=== PATIENT | female | born 1935 | race African-American/Black ===

== ENCOUNTER 2016-08-01 11:09 | Inpatient (IN) ==
--- NOTE | 2016-08-01 11:35 | Emergency Department Note ---
Disposition Clinical Impression: Urinary tract infection, Mental status change, Agitation, Fever, SIRS ( systemic inflammatory response syndrome) Disposition: Admitted As Inpatient Condition: Fair Referrals: Miguel Moya Jr, MD [Primary Care Provider] - Forms: ED Satisfaction Letter Time of Disposition: 13:27 General Adult HPI - General Chief complaint: ED Urogenital-Female Stated complaint: UTI, Fever, lethargic Time Seen by Provider: 08/01/16 11:33 Source: patient, EMS Mode of arrival: EMS Limitations: altered mental status Nursing Notes Reviewed: Yes Vital Signs Reviewed: Yes - History of Present Illness HPI Narrative: This is an 81-year-old female who comes in for altered mental status. There is no one at bedside to give us more history and the patient's a very poor historian. Patient was apparently just diagnosed with a UTI yesterday but has only had one dose of antibiotics. Patient is running a fever here. Patient is oriented to person and place but not to time. Patient denies any other pain except some chronic low back pain. Pt does have a baseline dementia and so this could be baseline but it is unknown. Onset (ago): unknown Pain Scale: 4 - Related Data Home Medications Medication Instructions Recorded Confirmed Aspirin Enteric Coated [Aspirin EC] 81 mg PO DAILY 03/10/16 08/01/16 Atorvastatin [Lipitor] 80 mg PO HS 03/10/16 08/01/16 Clopidogrel [Plavix] 75 mg PO DAILY 03/10/16 08/01/16 Furosemide [Lasix] 20 - 40 mg PO DAILY 03/10/16 08/01/16 Insulin Glargine,Hum.rec.anlog 25 unit SQ BID 03/10/16 08/01/16 [Lantus Solostar] Lansoprazole [Prevacid] 30 mg PO QAM 03/10/16 08/01/16 Paroxetine HCl 10 mg PO DAILY 03/10/16 08/01/16 Potassium Chloride [K-Tab ER] 20 meq PO DAILY 03/10/16 08/01/16 PredniSONE 10 mg PO DAILY 03/10/16 08/01/16 Metoprolol XL (24 HR) Succ [Toprol 25 mg PO DAILY 08/01/16 08/01/16 XL] Nitrofurantoin (BID) [Macrobid] 100 mg PO BID 08/01/16 08/01/16 Ondansetron ODT [Zofran ODT] 4 mg PO Q4H PRN 08/01/16 08/01/16 Quetiapine Fumarate [Quetiapine 25 mg PO DAILY 08/01/16 08/01/16 Fumarate] Allergies Allergy/AdvReac Type Severity Reaction Status Date / Time codeine Allergy See Verified 08/01/16 13:44 Comments Limitations: ROS unobtainable due to patients medical condition (confusion, ams) Past Medical History - Past Medical History Source: patient, old records reviewed Medical history: Reports: arthritis, dementia, diabetes, GERD, hyperlipidemia, hypertension, kidney stones, myocardial infarction Surgical history: Reports: angioplasty/stent, cataract, cholecystectomy, hysterectomy, knee replacement, orthopedic, other Psychiatric history: Reports: depression - Social History Smoking Status: Unknown if ever smoked Smokeless Tobacco Status: No Alcohol use: Reports: unknown Drug use: Reports: none Physical Exam - General Limitations: altered mental status General appearance: alert, in no apparent distress - Head Head exam: atraumatic, normocephalic, normal inspection - Eye Eye exam: Present: normal appearance, PERRL, EOMI - ENT ENT exam: normal exam, normal oropharynx, mucous membranes moist - Expanded ENT Exam External ear exam: Present: normal external inspection Mouth exam: Present: normal external inspection Teeth exam: Present: normal inspection Throat exam: Present: normal inspection - Neck Neck exam: Present: normal inspection, full ROM, trachea midline - Chest Chest inspection: Present: normal inspection, symmetric chest wall rise - Respiratory Respiratory exam: Present: normal lung sounds bilaterally - Cardiovascular Cardiovascular exam: Present: regular rate, normal rhythm, normal heart sounds - Abdominal Exam Abdominal exam: Present: soft, Non-Tender. Absent: tenderness, distention, guarding, rebound, rigidity - Extremities Exam Extremities exam: Present: normal inspection, full ROM, pedal edema. Absent: tenderness - Expanded Upper Extremity Exam Shoulder exam: Present: normal inspection, full ROM Arm exam: Present: normal inspection, full ROM Elbow exam: Present: normal inspection, full ROM Forearm/Wrist exam: Present: normal inspection, full ROM Hand exam: Present: normal inspection, full ROM Vascular exam: Normal: capillary refill, radial pulse - Expanded Lower Extremity Exam Hip/Pelvis exam: Present: normal inspection, full ROM Upper leg exam: Present: normal inspection, full ROM Knee exam: Present: normal inspection, full ROM Lower leg exam: Present: normal inspection, full ROM, swelling (b/l) Ankle exam: Present: normal inspection, full ROM Foot/toe exam: Present: normal inspection, full ROM Neurovascular/Tendon exam: Absent: motor deficit, sensory deficit, tendon deficit - Back Exam Back exam: Present: normal inspection, full ROM. Absent: tenderness - Neurological Exam Neurological exam: Present: alert. Absent: oriented X3 (to person and place only) - Expanded Neurological Exam Patient oriented to: Present: person, place, time Speech: Present: fluid speech Motor strength - LUE: 5/5 Motor strength - RUE: 5/5 Motor strength - LLE: 5/5 Motor strength - RLE: 5/5 Coma Scale Eye Opening: Spontaneous Coma Scale Motor Response: Obeys Commands Coma Scale Verbal Response: Confused Coma Scale Total: 14 - Psychiatric Psychiatric exam: Present: normal affect, normal mood - Skin Skin exam: Present: warm, dry, intact, normal color Course - Consultations Consultation #1: I spoke with Dr. Nelson onrman to admit. Time: 13:52 Vital Signs Temperature 101 F H 08/01/16 11:12 Pulse Rate 103 08/01/16 11:12 Respiratory Rate 18 08/01/16 11:12 Blood Pressure 98/57 08/01/16 11:12 O2 Sat by Pulse Oximetry 91 L 08/01/16 11:12 Temperature 101 F H 08/01/16 11:12 Pulse Rate 97 08/01/16 12:31 Respiratory Rate 36 08/01/16 12:31 Blood Pressure 130/83 08/01/16 12:31 O2 Sat by Pulse Oximetry 98 08/01/16 12:31 Oxygen Delivery Oxygen Delivery Room Air Medical Decision Making - Medical Records Medical records reviewed: Yes I reviewed the patient's medical records. - Lab Data Lab results reviewed: Yes I reviewed the patient's lab results. Result diagrams: 08/01/16 12:23 08/01/16 12:23 Lab Results 08/01/16 08/01/16 08/01/16 Range/Units 12:23 12:23 12:23 WBC 9.6 (4.3-11.1) K/mcL RBC 3.67 L (3.82-4.97) M/mcL Hgb 10.6 L (11.5-15.4) g/dL Hct 33.9 L (35.3-44.9) % MCV 92.4 (83.0-100.0) fL MCH 28.9 (28.0-33.3) pg MCHC 31.3 L (31.6-35.5) g/dL RDW 13.8 (11.5-14.5) % Plt Count 194 (140-400) K/mcL MPV 8.7 L (9.4-12.4) fL Immature Gran % 0.6 (0-4) % Seg Neutrophils % 90.6 % Lymphocytes % 2.5 % Monocytes % 3.6 % Eosinophils % 2.6 % Basophils % 0.1 % Neutrophils # 8.7 (1.6-8.9) K/mcL Lymphocytes # 0.2 L (0.6-4.6) K/mcL Monocytes # 0.4 (0.0-1.3) K/mcL Eosinophils # 0.3 (0.0-0.6) K/mcL Basophils # 0.0 (0.0-0.2) K/mcL PT (9.4-12.1) Seconds INR Sodium 142 (136-145) mEq/L Potassium 3.6 (3.5-4.5) mEq/L Chloride 111 H (98-109) mEq/L Carbon Dioxide 27 (19-29) mEq/L BUN 24 H (7-20) mg/dL Creatinine 0.85 (0.57-1.11) mg/dL Est GFR ( Amer) > 60 (> 60) Est GFR (Non-Af Amer) > 60 (> 60) BUN/Creatinine Ratio 28 H (6-26) Glucose 154 H (70-99) mg/dL Calculated Osmolality 301 H (280-300) Lactic Acid 1.3 (0.5-2.2) mmol/L Calcium 8.1 L (8.6-10.8) mg/dL Total Bilirubin (0.2-1.2) mg/dL Direct Bilirubin (0.0-0.5) mg/dL Indirect Bilirubin (0.0-1.2) mg/dL AST (5-34) Units/L ALT (0-55) Units/L Alkaline Phosphatase (38-126) Units/L Troponin I (0-0.03) ng/mL B-Natriuretic Peptide (0-100) pg/mL Serum Total Protein (6.0-8.3) g/dL Albumin (3.5-5.0) g/dL Globulin (2.4-3.5) g/dL Albumin/Globulin Ratio (1.1-2.2) Lipase (8-78) Units/L TSH (0.350-4.840) mcIU/mL Salicylates (15-30) mg/dL Acetaminophen (10-30) mcg/mL Ethyl Alcohol (0-10) mg/dL 08/01/16 08/01/16 08/01/16 Range/Units 12:23 12:23 12:23 WBC (4.3-11.1) K/mcL RBC (3.82-4.97) M/mcL Hgb (11.5-15.4) g/dL Hct (35.3-44.9) % MCV (83.0-100.0) fL MCH (28.0-33.3) pg MCHC (31.6-35.5) g/dL RDW (11.5-14.5) % Plt Count (140-400) K/mcL MPV (9.4-12.4) fL Immature Gran % (0-4) % Seg Neutrophils % % Lymphocytes % % Monocytes % % Eosinophils % % Basophils % % Neutrophils # (1.6-8.9) K/mcL Lymphocytes # (0.6-4.6) K/mcL Monocytes # (0.0-1.3) K/mcL Eosinophils # (0.0-0.6) K/mcL Basophils # (0.0-0.2) K/mcL PT 12.3 H (9.4-12.1) Seconds INR 1.1 Sodium (136-145) mEq/L Potassium (3.5-4.5) mEq/L Chloride (98-109) mEq/L Carbon Dioxide (19-29) mEq/L BUN (7-20) mg/dL Creatinine (0.57-1.11) mg/dL Est GFR ( Amer) (> 60) Est GFR (Non-Af Amer) (> 60) BUN/Creatinine Ratio (6-26) Glucose (70-99) mg/dL Calculated Osmolality (280-300) Lactic Acid (0.5-2.2) mmol/L Calcium (8.6-10.8) mg/dL Total Bilirubin (0.2-1.2) mg/dL Direct Bilirubin (0.0-0.5) mg/dL Indirect Bilirubin (0.0-1.2) mg/dL AST (5-34) Units/L ALT (0-55) Units/L Alkaline Phosphatase (38-126) Units/L Troponin I 0.02 (0-0.03) ng/mL B-Natriuretic Peptide 134 H (0-100) pg/mL Serum Total Protein (6.0-8.3) g/dL Albumin (3.5-5.0) g/dL Globulin (2.4-3.5) g/dL Albumin/Globulin Ratio (1.1-2.2) Lipase (8-78) Units/L TSH (0.350-4.840) mcIU/mL Salicylates (15-30) mg/dL Acetaminophen (10-30) mcg/mL Ethyl Alcohol (0-10) mg/dL 08/01/16 Range/Units 12:23 WBC (4.3-11.1) K/mcL RBC (3.82-4.97) M/mcL Hgb (11.5-15.4) g/dL Hct (35.3-44.9) % MCV (83.0-100.0) fL MCH (28.0-33.3) pg MCHC (31.6-35.5) g/dL RDW (11.5-14.5) % Plt Count (140-400) K/mcL MPV (9.4-12.4) fL Immature Gran % (0-4) % Seg Neutrophils % % Lymphocytes % % Monocytes % % Eosinophils % % Basophils % % Neutrophils # (1.6-8.9) K/mcL Lymphocytes # (0.6-4.6) K/mcL Monocytes # (0.0-1.3) K/mcL Eosinophils # (0.0-0.6) K/mcL Basophils # (0.0-0.2) K/mcL PT (9.4-12.1) Seconds INR Sodium (136-145) mEq/L Potassium (3.5-4.5) mEq/L Chloride (98-109) mEq/L Carbon Dioxide (19-29) mEq/L BUN (7-20) mg/dL Creatinine (0.57-1.11) mg/dL Est GFR ( Amer) (> 60) Est GFR (Non-Af Amer) (> 60) BUN/Creatinine Ratio (6-26) Glucose (70-99) mg/dL Calculated Osmolality (280-300) Lactic Acid (0.5-2.2) mmol/L Calcium (8.6-10.8) mg/dL Total Bilirubin 0.6 (0.2-1.2) mg/dL Direct Bilirubin 0.3 (0.0-0.5) mg/dL Indirect Bilirubin 0.3 (0.0-1.2) mg/dL AST 20 (5-34) Units/L ALT 11 (0-55) Units/L Alkaline Phosphatase 82 (38-126) Units/L Troponin I (0-0.03) ng/mL B-Natriuretic Peptide (0-100) pg/mL Serum Total Protein 5.6 L (6.0-8.3) g/dL Albumin 2.7 L (3.5-5.0) g/dL Globulin 2.9 (2.4-3.5) g/dL Albumin/Globulin Ratio 0.9 L (1.1-2.2) Lipase 14 (8-78) Units/L TSH 0.706 (0.350-4.840) mcIU/mL Salicylates < 5.0 L (15-30) mg/dL Acetaminophen 6.0 L (10-30) mcg/mL Ethyl Alcohol < 10 (0-10) mg/dL - Radiology Data Radiology results reviewed: Yes I reviewed the patient's radiology results. - EKG Data EKG #1 EKG attestation: Yes I reviewed and interpreted this EKG. EKG shows normal: sinus rhythm Rate: tachycardia (105) Rhythm: NSR [place]/QRS: normal T wave inversions noted in: v4, v5, v6 Interpretation: nonspecific ST-T wave changes
[2016-08-01] MEDS: 0.9 % Sodium Chloride 1,000 ML IV SCH (11:42)
[2016-08-01 12:32] LABS: Basophils % 0.1 %; Eosinophils # 0.3 K/mcL (0.0-0.6); Eosinophils % 2.6 %; Hematocrit 33.9 % (35.3-44.9); Hemoglobin 10.6 g/dL (11.5-15.4); Immature Granulocytes % 0.6 % (0-4); Lymphocytes # 0.2 K/mcL (0.6-4.6); Lymphocytes % 2.5 %; Mean Corpuscular HGB Conc 31.3 g/dL (31.6-35.5); Mean Corpuscular Hemoglobin 28.9 pg (28.0-33.3); Mean Corpuscular Volume 92.4 fL (83.0-100.0); Mean Platelet Volume 8.7 fL (9.4-12.4); Monocytes # 0.4 K/mcL (0.0-1.3); Monocytes % 3.6 %; Neutrophils # 8.7 K/mcL (1.6-8.9); Platelet Count 194 K/mcL (140-400); Red Blood Count 3.67 M/mcL (3.82-4.97); Red Cell Distribution Width 13.8 % (11.5-14.5); Segmented Neutrophils % 90.6 %
[2016-08-01 12:36] LABS: INR 1.1; Prothrombin Time 12.3 Seconds (9.4-12.1)
[2016-08-01 12:50] LABS: BUN/Creatinine Ratio 28 (6-26); Blood Urea Nitrogen 24 mg/dL (7-20); Calcium 8.1 mg/dL (8.6-10.8); Carbon Dioxide 27 mEq/L (19-29); Chloride 111 mEq/L (98-109); Glucose 154 mg/dL (70-99); Osmolality,Calculated 301 (280-300); Potassium 3.6 mEq/L (3.5-4.5); Sodium 142 mEq/L (136-145); eGFR For African Americans > 60 (> 60); eGFR For Non-African Americans > 60 (> 60)
[2016-08-01 12:51] LABS: Alanine Aminotransferase 11 Units/L (0-55); Albumin 2.7 g/dL (3.5-5.0); Albumin/Globulin Ratio 0.9 (1.1-2.2); Alkaline Phosphatase 82 Units/L (38-126); Aspartate Amino Transferase 20 Units/L (5-34); Bilirubin,Direct 0.3 mg/dL (0.0-0.5); Bilirubin,Indirect 0.3 mg/dL (0.0-1.2); Bilirubin,Total 0.6 mg/dL (0.2-1.2); Globulin 2.9 g/dL (2.4-3.5); Lipase 14 Units/L (8-78); Total Protein 5.6 g/dL (6.0-8.3)
[2016-08-01 12:52] LABS: Ethanol < 10 mg/dL (0-10); Salicylate < 5.0 mg/dL (15-30)
[2016-08-01 13:14] LABS: Thyroid Stimulating Hormone 0.706 mcIU/mL (0.350-4.840)
[2016-08-01] MEDS ORDERED: *HR* LORazepam 2 MG/ML VIAL IVP ONE (13:26)
[2016-08-01] MEDS ORDERED: 0.9 % Sodium Chloride 1,000 ML IV SCH (14:00)
[2016-08-01] MEDS ORDERED: Ondansetron 4 MG/2 ML VIAL IVP PRN (17:07)
[2016-08-01] MEDS ORDERED: Naloxone 0.4 MG/ML INJ IVP PRN (17:07)
[2016-08-01] MEDS ORDERED: Dextrose Gel 15 GM PO PRN ×2 (17:13)
[2016-08-01] MEDS ORDERED: D5% in Water 1,000 ML IV PRN (17:13)
--- NOTE | 2016-08-01 17:14 | Internal Med History&Physical ---
Date of Encounter: 08/01/16 Time of Encounter: 17:14 Assessment and Plan (1) Sepsis Current visit: Yes Status: Acute Patient presented with fever, tachycardia, encephalopathy with possible UTI. Start IV hydration and continue IV Rocephin. Urinalysis is currently not available. Send urine dipstick with reflex urine culture as soon as possible. Supportive care with when necessary antiemetics. Fall precautions. Qualifiers: Sepsis type: sepsis due to unspecified organism Qualified Code(s): A41.9 - Sepsis, unspecified organism (2) UTI (urinary tract infection) Current visit: Yes Status: Acute Qualifiers: Urinary tract infection type: site unspecified Hematuria presence: without hematuria Qualified Code(s): N39.0 - Urinary tract infection, site not specified (3) Essential hypertension Current visit: Yes Status: Chronic Blood pressure noted to be controlled; resume home meds; (4) Diabetes mellitus Current visit: Yes Status: Chronic Accucheck blood glucose monitoring with basal bolus insulin regimen; diabetic diet; Qualifiers: Diabetes mellitus type: type 2 Diabetes mellitus complication status: with unspecified complications Diabetes mellitus chcf insulin use: with chcf use Qualified Code(s): E11.8 - Type 2 diabetes mellitus with unspecified complications; Z79.4 - joint terminal attack controller (current) use of insulin (5) Hyperlipidemia Current visit: Yes Status: Chronic Qualifiers: Hyperlipidemia type: unspecified Qualified Code(s): E78.5 - Hyperlipidemia , unspecified (6) Osteoarthritis Current visit: Yes Status: Chronic Qualifiers: Osteoarthritis location: unspecified site Osteoarthritis type: primary Qualified Code(s): M19.91 - Primary osteoarthritis, unspecified site (7) GERD (gastroesophageal reflux disease) Current visit: Yes Status: Chronic Qualifiers: Esophagitis presence: esophagitis presence not specified Qualified Code(s) : K21.9 - Gastro-esophageal reflux disease without esophagitis (8) Coronary artery disease Current visit: Yes Status: Chronic s/p stent placement; continue ASA, Plavix, statin and beta-bry; Qualifiers: Coronary Disease-Associated Artery/Lesion type: [place] artery [place] vs. transplanted heart: [place]quois heart Associated angina: without angina Qualified Code(s): I25.10 - Atherosclerotic heart disease of [place] coronary artery without angina pectoris (9) Depression Current visit: Yes Status: Chronic Qualifiers: Depression Type: unspecified Qualified Code(s): F32.9 - Major depressive disorder, single episode, unspecified (10) Aortic regurgitation Current visit: Yes Status: Chronic Qualifiers: Cardiac valve disease etiology: nonrheumatic Qualified Code(s): I35.1 - Nonrheumatic aortic (valve) insufficiency Internal Medicine - H&P: HPI Chief complaint: Altered mental status Admitted From: Emergency Dept Plans for Post Hospital Care: Transfer [facility] Facility History of present illness: Ms. Cole is a 81 year old female with history of dementia, hypertension, diabetes was brought in by family for evaluation of lethargy and weakness. Patient is currently drowsy and is unable to provide any history, which is obtained from review of previous records, patient's daughter at bedside and from discussion with emergency room physician. Patient was noted to have progressive excessive sleepiness, generalized weakness and fatigue for the last few days and was taken to her primary care provider's office yesterday, where she was diagnosed with a urinary tract infection and was sent home on oral antibiotic. does not remember the name. She continued to have her symptoms associated with fever, nausea and dry heaves and an episode of vomiting this morning and she was brought into the emergency room for evaluation. She does not particularly report abdominal or flank pain, chest pain, shortness of breath, diarrhea. Patient does have a history of recurrent urinary infections, probably related to her history of renal stones. Past Med Surg Social Fam HX - Past Medical History Medical history: arthritis, coronary artery disease, dementia, diabetes, GERD, hyperlipidemia, hypertension, kidney stones, myocardial infarction Psychiatric history: depression - Past Surgical History Surgical History: angioplasty/stent, cataract, cholecystectomy, hysterectomy, knee replacement (Bilateral total knee replacement), orthopedic, other (Right shoulder replacement), other (Surgery for ectopic , bilateral nephrostomy tubes and removal) - Social History Smoking Status: Never smoker Smokeless Tobacco Status: No Alcohol use: unknown Drug use: none Occupational status: retired Current living situation: Home, With Family Activity Level: Uses cane/walker Recent Out of Country Travel Within the Last 8 Weeks: No Exposure or Possible Exposure to Illness During Travel: No - Additional Family History Additional family history: Family history cannot be obtained due to patient's current mental status Internal Medicine - H&P: Meds Aspirin Enteric Coated [Aspirin EC] 81 mg PO DAILY 03/10/16 [History] Atorvastatin [Lipitor] 80 mg PO HS 03/10/16 [History] Clopidogrel [Plavix] 75 mg PO DAILY 03/10/16 [History] Furosemide [Lasix] 20 - 40 mg PO DAILY 03/10/16 [History] Insulin Glargine,Hum.rec.anlog [Lantus Solostar] 25 unit SQ BID 03/10/16 [ History] Lansoprazole [Prevacid] 30 mg PO QAM 03/10/16 [History] Paroxetine HCl 10 mg PO DAILY 03/10/16 [History] Potassium Chloride [K-Tab ER] 20 meq PO DAILY 03/10/16 [History] PredniSONE 10 mg PO DAILY 03/10/16 [History] Metoprolol XL (24 HR) Succ [Toprol XL] 25 mg PO DAILY 08/01/16 [History] Nitrofurantoin (BID) [Macrobid] 100 mg PO BID 08/01/16 [History] Ondansetron ODT [Zofran ODT] 4 mg PO Q4H PRN 08/01/16 [History] Quetiapine Fumarate [Quetiapine Fumarate] 25 mg PO DAILY 08/01/16 [History] Allergies codeine Allergy (Verified 08/01/16 13:44) See Comments hasn't taken since a child All Systems PM: A 10-system review of systems was performed and is negative for pertinent findings except as documented above in the HPI. - Constitutional Constitutional: anorexia, chills, fever(s), lethargy, malaise, weakness - EENT Eyes: no change in vision, no discharge, no pain, no photophobia Ears: no ear discharge, no ear pain, no tinnitus Nose, mouth and throat: no dysphagia, no nasal discharge, no neck pain, no sore throat - Cardiovascular Cardiovascular ROS IM: no chest pain, no diaphoresis, no dyspnea, no lightheadedness, no palpitations, no syncope - Respiratory Respiratory: no cough, no dyspnea, no wheezing, no excessive phlegm production - Gastrointestinal Gastrointestinal: nausea, vomiting - Genitourinary Genitourinary: no change in urinary stream, no dysuria, no flank pain, no hematuria - Musculoskeletal Musculoskeletal ROS IM: no numbness, no tingling - Integumentary Integumentary IM: no rash, no unusual bruising - Neurological Neurological ROS: behavioral changes, no confusion, no convulsions, no focal weakness, no numbness, no tingling, no tremor(s) - Hematologic/Lymphatic Hematologic/Lymphatic: no easy bruising - Constitutional Vitals: Temp Pulse Resp BP Pulse Ox 102.0 F H 105 16 127/61 95 08/01/16 16:18 08/01/16 16:18 08/01/16 16:18 08/01/16 16:18 08/01/16 16:18 General appearance: Present: A&O X 1 (Drowsy, not arousable to tactile and verbal stimuli) - Head Head exam: Present: atraumatic, normocephalic - Neck Neck exam general surgery: Present: supple, trachea midline. Absent: lymphadenopathy - Respiratory Respiratory exam: Present: CTAB. Absent: accessory muscle use, rales, rhonchi, wheezes - Cardiovascular Cardiovascular exam: Present: RRR, +S1, +S2, tachycardia. Absent: diastolic murmur, gallop, rubs, systolic murmur - GI/Abdominal GI/Abdominal exam: Present: normal bowel sounds, soft (Nontender), no peritoneal signs. Absent: distended, tenderness - Extremities Exam Extremities exam: Present: pedal edema (2+ pedal edema, right more than left), warm, radial pulses palpable and symetrical. Absent: calf tenderness, cyanotic - Neurological Exam Neurological exam: Present: altered, no focal deficits. Absent: pronater drift , facial droop, speech deficit - Skin Skin exam: Present: dry, intact Internal Med - H&P Results - Labs CBC & Chem 7: 08/02/16 04:39 08/02/16 04:39 - EKG Data -: EKG Interpreted by Myself EKG shows normal: sinus rhythm Rate: tachycardia - EKG Data EKG comments: 08/02/16 08:32 Sinus tachycardia, nonspecific ST-T abnormalities in lateral leads
[2016-08-01 17:45] LABS: Hemoglobin A1C 6.8 %
[2016-08-01] MEDS: 0.9 % Sodium Chloride 1,000 ML IVC SCH (17:49)
[2016-08-01] MEDS: Acetaminophen 325 MG TABLET PO PRN (17:49)
[2016-08-01] MEDS: Furosemide 20 MG TABLET PO SCH (17:49)
[2016-08-01] MEDS: Insulin LISPRO 300 UNITS/3 ML VIAL SQ SCH ×2 (17:50→20:28)
[2016-08-01] MEDS ORDERED: Haloperidol Lactate 5 MG/ML VIAL IVP PRN (20:38)
[2016-08-01] MEDS ORDERED: *HR* LORazepam 2 MG/ML VIAL IVP STA (20:38)
[2016-08-01] MEDS ORDERED: Haloperidol Lactate 5 MG/ML VIAL IVP STA (20:38)
[2016-08-01] MEDS ORDERED: *HR* Promethazine 25 MG/ML VIAL IVP PRN (20:40)
[2016-08-01] MEDS: Insulin DETEMIR 100 UNIT/ML X5UNITS SQ SCH (20:43)
[2016-08-02] MEDS ORDERED: Ketorolac 15 MG/ML VIAL IM STA
[2016-08-02] MEDS ORDERED: *HR* LORazepam 2 MG/ML VIAL IVP STA (01:17)
[2016-08-02] MEDS ORDERED: *HR* FentaNYL (PF) 100 MCG/2 ML VIAL IVP STA (01:20)
[2016-08-02 05:26] LABS: Basophils % 0.2 %; Eosinophils # 0.2 K/mcL (0.0-0.6); Eosinophils % 2.8 %; Hematocrit 31.1 % (35.3-44.9); Hemoglobin 9.8 g/dL (11.5-15.4); Immature Granulocytes % 0.6 % (0-4); Lymphocytes # 0.4 K/mcL (0.6-4.6); Lymphocytes % 5.1 %; Mean Corpuscular HGB Conc 31.5 g/dL (31.6-35.5); Mean Corpuscular Hemoglobin 29.2 pg (28.0-33.3); Mean Corpuscular Volume 92.6 fL (83.0-100.0); Mean Platelet Volume 8.8 fL (9.4-12.4); Monocytes # 0.5 K/mcL (0.0-1.3); Monocytes % 6.6 %; Neutrophils # 6.9 K/mcL (1.6-8.9); Platelet Count 177 K/mcL (140-400); Red Blood Count 3.36 M/mcL (3.82-4.97); Red Cell Distribution Width 14.1 % (11.5-14.5); Segmented Neutrophils % 84.7 %
[2016-08-02] MEDS: *HR* Enoxaparin 40 MG/0.4 ML SYRINGE SQ SCH (05:26)
[2016-08-02 05:40] LABS: BUN/Creatinine Ratio 23 (6-26); Blood Urea Nitrogen 23 mg/dL (7-20); Calcium 7.8 mg/dL (8.6-10.8); Carbon Dioxide 26 mEq/L (19-29); Chloride 113 mEq/L (98-109); Glucose 85 mg/dL (70-99); Osmolality,Calculated 299 (280-300); Potassium 4.2 mEq/L (3.5-4.5); Sodium 143 mEq/L (136-145); eGFR For African Americans > 60 (> 60); eGFR For Non-African Americans 52 (> 60)
[2016-08-02] MEDS: Insulin LISPRO 300 UNITS/3 ML VIAL SQ SCH ×4 (07:45→19:24)
[2016-08-02] MEDS: Vitamin B Complex/Vit C/Vit E 1 EACH TABLET PO SCH (07:57)
[2016-08-02] MEDS: Thiamine (B-1) 100 MG TABLET PO SCH (07:57)
[2016-08-02] MEDS: Furosemide 20 MG TABLET PO SCH (07:57)
[2016-08-02] MEDS: Folic Acid 1 MG TABLET PO SCH (07:58)
[2016-08-02] MEDS: Aspirin Enteric Coated 81 MG Tablet PO SCH (07:58)
[2016-08-02] MEDS: Metoprolol XL (24 HR) Succ 25 MG TAB.ER.24H PO SCH (07:58)
[2016-08-02] MEDS: 0.9 % Sodium Chloride 1,000 ML IVC SCH (07:59)
[2016-08-02] MEDS: Insulin DETEMIR 100 UNIT/ML X5UNITS SQ SCH ×2 (09:24→19:25)
[2016-08-02] MEDS: Acetaminophen 325 MG TABLET PO PRN (09:29)
--- NOTE | 2016-08-02 11:52 | Internal Med Progress Note ---
Date of Encounter: 08/02/16 Time of Encounter: 07:35 - Assessment and plan (1) Sepsis Current Visit: Yes Status: Acute Assessment and plan: Continue IV Rocephin. We will follow urinalysis and culture results. Qualifiers: Sepsis type: sepsis due to unspecified organism Qualified Code(s): A41.9 - Sepsis, unspecified organism (2) UTI (urinary tract infection) Current Visit: Yes Status: Acute Assessment and plan: Treating for presumptive UTI. We will follow culture results. Continue IV antibiotics. Qualifiers: Urinary tract infection type: site unspecified Hematuria presence: without hematuria Qualified Code(s): N39.0 - Urinary tract infection, site not specified (3) Coronary artery disease Current Visit: Yes Status: Chronic Assessment and plan: Continue aspirin, statin. Qualifiers: Coronary Disease-Associated Artery/Lesion type: [place] artery [place] vs. transplanted heart: [place] heart Associated angina: without angina Qualified Code(s): I25.10 - Atherosclerotic heart disease of [place] coronary artery without angina pectoris (4) Depression Current Visit: Yes Status: Chronic Qualifiers: Depression Type: unspecified Qualified Code(s): F32.9 - Major depressive disorder, single episode, unspecified (5) Diabetes mellitus Current Visit: Yes Status: Chronic Assessment and plan: Controlled. Monitor blood sugars. Qualifiers: Diabetes mellitus type: type 2 Diabetes mellitus complication status: with unspecified complications Diabetes mellitus skilled nursing insulin use: with intermediate manager use Qualified Code(s): E11.8 - Type 2 diabetes mellitus with unspecified complications; Z79.4 - skilled nursing (current) use of insulin (6) Essential hypertension Current Visit: Yes Status: Chronic Assessment and plan: Well-controlled. (7) Hyperlipidemia Current Visit: Yes Status: Chronic Assessment and plan: Continue statin Qualifiers: Hyperlipidemia type: unspecified Qualified Code(s): E78.5 - Hyperlipidemia , unspecified (8) Osteoarthritis Current Visit: Yes Status: Chronic Assessment and plan: Chronic. Supportive care. Qualifiers: Osteoarthritis location: unspecified site Osteoarthritis type: primary Qualified Code(s): M19.91 - Primary osteoarthritis, unspecified site (9) Dementia Current Visit: Yes Status: Chronic Assessment and plan: Patient has chronic dementia with intermittent delirium. Will monitor for now. She has not had good response to low-dose Seroquel. Will increase dosage. Qualifiers: Dementia type: unspecified type Dementia behavioral disturbance: with behavioral disturbance Qualified Code(s): F03.91 - Unspecified dementia with behavioral disturbance - Subjective Interval history: Patient is lying in bed and trying to sleep. Patient's daughter is at bedside and says that the patient has been intermittently agitated. Otherwise no other complaints reported. She is having fever with MAXIMUM TEMPERATURE of 100.6 overnight. - Constitutional Vitals: Temp Pulse Resp BP Pulse Ox 100.1 F H 107 20 87/56 100 08/02/16 10:17 08/02/16 10:17 08/02/16 10:17 08/02/16 10:08/02/16 10:17 General appearance: Present: A&O X 1 (Drowsy, not arousable to tactile and verbal stimuli), mild distress. Absent: answers questions appropriately Exam: Somnolent. Awakes but does not answer questions - Neck Neck exam general surgery: Present: supple, trachea midline. Absent: lymphadenopathy - Respiratory Respiratory exam: Present: CTAB. Absent: accessory muscle use, rales, rhonchi, wheezes - Cardiovascular Cardiovascular exam: Present: RRR, +S1, +S2. Absent: diastolic murmur, gallop, rubs, systolic murmur - GI/Abdominal GI/Abdominal exam: Present: normal bowel sounds, soft, no peritoneal signs. Absent: distended, tenderness - Neurological Exam Neurological exam: Present: altered. Absent: oriented X3, facial droop Additional comments: Somnolent. Awakes easily but does not answer questions. - Skin Skin exam: Present: dry, intact Internal Medicine: Result - Labs CBC & Chem 7: 08/02/16 04:39 08/02/16 04:39 Labs: Short CBC 08/02/16 Range/Units 04:39 WBC 8.2 (4.3-11.1) K/mcL Hgb 9.8 L (11.5-15.4) g/dL Hct 31.1 L (35.3-44.9) % Plt Count 177 (140-400) K/mcL Neutrophils # 6.9 (1.6-8.9) K/mcL BMP 08/02/16 04:39 Sodium 143 Potassium 4.2 Chloride 113 H Carbon Dioxide 26 BUN 23 H Creatinine 1.02 Glucose 85 Calcium 7.8 L - ABG Interpretation ABG results: PT/INR, D-dimer PT 12.3 Seconds (9.4-12.1) H 08/01/16 12:23 Consult Discharge Plan - Plan Referrals: Miguel Moya Jr, MD [Primary Care Provider] - - Attending Attestation This document has been at least partially created by [employer] recognition technology by Dr. Can. Errors in grammar, wording or other phrases may exist. If errors are found after the documentation is signed, they will be addressed individually in the addendum section of this document when appropriate. Medical Decision Making - MDM Narrative Medical decision making narrative: Moderate risk for complications - Lab Data Result diagrams: 08/02/16 04:39 08/02/16 04:39 Lab Results 08/01/16 08/02/16 08/02/16 Range/Units 20:05 04:39 04:39 WBC 8.2 (4.3-11.1) K/mcL RBC 3.36 L (3.82-4.97) M/mcL Hgb 9.8 L (11.5-15.4) g/dL Hct 31.1 L (35.3-44.9) % MCV 92.6 (83.0-100.0) fL MCH 29.2 (28.0-33.3) pg MCHC 31.5 L (31.6-35.5) g/dL RDW 14.1 (11.5-14.5) % Plt Count 177 (140-400) K/mcL MPV 8.8 L (9.4-12.4) fL Immature Gran % 0.6 (0-4) % Seg Neutrophils % 84.7 % Lymphocytes % 5.1 % Monocytes % 6.6 % Eosinophils % 2.8 % Basophils % 0.2 % Neutrophils # 6.9 (1.6-8.9) K/mcL Lymphocytes # 0.4 L (0.6-4.6) K/mcL Monocytes # 0.5 (0.0-1.3) K/mcL Eosinophils # 0.2 (0.0-0.6) K/mcL Basophils # 0.0 (0.0-0.2) K/mcL Sodium 143 (136-145) mEq/L Potassium 4.2 (3.5-4.5) mEq/L Chloride 113 H (98-109) mEq/L Carbon Dioxide 26 (19-29) mEq/L BUN 23 H (7-20) mg/dL Creatinine 1.02 (0.57-1.11) mg/dL Est GFR ( Amer) > 60 (> 60) Est GFR (Non-Af Amer) 52 L (> 60) BUN/Creatinine Ratio 23 (6-26) Glucose 85 (70-99) mg/dL POC Glucose 77 (58-89) Calculated Osmolality 299 (280-300) Calcium 7.8 L (8.6-10.8) mg/dL 08/02/16 Range/Units 07:05 WBC (4.3-11.1) K/mcL RBC (3.82-4.97) M/mcL Hgb (11.5-15.4) g/dL Hct (35.3-44.9) % MCV (83.0-100.0) fL MCH (28.0-33.3) pg MCHC (31.6-35.5) g/dL RDW (11.5-14.5) % Plt Count (140-400) K/mcL MPV (9.4-12.4) fL Immature Gran % (0-4) % Seg Neutrophils % % Lymphocytes % % Monocytes % % Eosinophils % % Basophils % % Neutrophils # (1.6-8.9) K/mcL Lymphocytes # (0.6-4.6) K/mcL Monocytes # (0.0-1.3) K/mcL Eosinophils # (0.0-0.6) K/mcL Basophils # (0.0-0.2) K/mcL Sodium (136-145) mEq/L Potassium (3.5-4.5) mEq/L Chloride (98-109) mEq/L Carbon Dioxide (19-29) mEq/L BUN (7-20) mg/dL Creatinine (0.57-1.11) mg/dL Est GFR ( Amer) (> 60) Est GFR (Non-Af Amer) (> 60) BUN/Creatinine Ratio (6-26) Glucose (70-99) mg/dL POC Glucose 88 (58-89) Calculated Osmolality (280-300) Calcium (8.6-10.8) mg/dL
--- NOTE | 2016-08-02 12:00 | Venous Imaging Report ---
LE Venous Duplex Patient Name:Esther Cole Order Number:[id number] Procedure Date:08/01/2016 Date:4Age:81 yrs Gender:Female Location:[facility] Room #: 3A21 Cnc Lathe Programmer:Julia Hannah Referring MD:Ree Damon MD mud jack nozzle worker:Miguel Moya MD Reading MD:Armen Mcdaniel MD Primary Indications:Right leg swelling Secondary Indications: Impressions: Right lower extremity: normal superficial and deep exam. Findings Venous Duplex Results: Right: The right peroneal vein was not well visualized. Prior Study: No prior study available for comparison. Lower Extremity Venous Duplex Side Vein Compress Spontaneous Flow Augment Diameter (cm) Depth (cm) Right Superficial Femoral Normal Yes Phasic Yes Right Popliteal Normal Yes Phasic Yes Right Posterior Tibial Normal Yes Phasic Yes Right Peroneal Normal Yes Phasic Yes Right Saphenofemoral [place] Normal Yes Phasic Yes Right Great Saphenous Normal Yes Phasic Yes Right Lesser Saphenous Normal Yes Phasic Yes Left Common Femoral Normal Yes Phasic Yes Right Distal Iliac Normal Yes Phasic Yes Right Common Femoral Normal Yes Phasic Yes Updated by Armen Mcdaniel MD on 08/02/2016 11:55:29 AM electronically signed on 08/02/2016 11:56:15 AM with status of Final
[2016-08-02] MEDS: 0.9 % Sodium Chloride 1,000 ML IV SCH (12:24)
[2016-08-02] MEDS: *HR* Dextrose 50 % in Water (Syg) 50 ML SYRINGE IVP PRN ×4 (12:29→23:55)
[2016-08-02] MEDS ORDERED: Haloperidol Lactate 5 MG/ML VIAL ONE (13:31)
[2016-08-02] MEDS ORDERED: Haloperidol Lactate 5 MG/ML VIAL IM ONE (13:32)
[2016-08-02] MEDS ORDERED: D5% in 0.45% NACL 1,000 ML IVC ONE (17:29)
[2016-08-02] MEDS ORDERED: D5% in 0.45% NACL 1,000 ML IVC SCH (17:30)
[2016-08-02] MEDS: Ipratropium/Albuterol Neb 3 ML IH PRN (20:33)
[2016-08-02] MEDS: Melatonin 3 MG TABLET PO SCH (20:58)
[2016-08-02] MEDS ORDERED: diazePAM 5 MG TABLET PO SCH (21:00)
[2016-08-03] MEDS: D10% in Water 500 ML IVC SCH ×2 (02:26→09:17)
[2016-08-03] MEDS: Ipratropium/Albuterol Neb 3 ML IH PRN ×2 (04:17→09:23)
[2016-08-03] MEDS: *HR* Enoxaparin 40 MG/0.4 ML SYRINGE SQ SCH (05:51)
[2016-08-03] MEDS: Folic Acid 1 MG TABLET PO SCH (09:03)
[2016-08-03] MEDS: Furosemide 20 MG TABLET PO SCH (09:03)
[2016-08-03] MEDS: Metoprolol XL (24 HR) Succ 25 MG TAB.ER.24H PO SCH (09:04)
[2016-08-03] MEDS: Thiamine (B-1) 100 MG TABLET PO SCH (09:04)
[2016-08-03] MEDS: Aspirin Enteric Coated 81 MG Tablet PO SCH (09:04)
[2016-08-03] MEDS: Vitamin B Complex/Vit C/Vit E 1 EACH TABLET PO SCH (09:04)
[2016-08-03] MEDS: Insulin LISPRO 300 UNITS/3 ML VIAL SQ SCH (09:41)
[2016-08-03] MEDS ORDERED: Acetaminophen 650 MG RECTAL SUPP RC PRN (11:19)
[2016-08-03] MEDS: Ipratropium/Albuterol Neb 3 ML IH SCH ×4 (14:37→23:38)
--- NOTE | 2016-08-03 15:13 | Internal Med Progress Note ---
Date of Encounter: 08/03/16 Time of Encounter: 13:00 - Assessment and plan (1) Sepsis Current Visit: Yes Status: Acute Assessment and plan: Improving. Blood cultures have been negative. Continue Rocephin. Qualifiers: Sepsis type: sepsis due to unspecified organism Qualified Code(s): A41.9 - Sepsis, unspecified organism (2) UTI (urinary tract infection) Current Visit: Yes Status: Acute Assessment and plan: On IV Rocephin. So far unable to get urine sample here. Qualifiers: Urinary tract infection type: site unspecified Hematuria presence: without hematuria Qualified Code(s): N39.0 - Urinary tract infection, site not specified (3) Coronary artery disease Current Visit: Yes Status: Chronic Assessment and plan: chronic. Continue aspirin, statin, beta bry. Qualifiers: Coronary Disease-Associated Artery/Lesion type: [place] artery [place] vs. transplanted heart: [place] heart Associated angina: without angina Qualified Code(s): I25.10 - Atherosclerotic heart disease of [place] coronary artery without angina pectoris (4) Depression Current Visit: Yes Status: Chronic Assessment and plan: On Paxil. Qualifiers: Depression Type: unspecified Qualified Code(s): F32.9 - Major depressive disorder, single episode, unspecified (5) Diabetes mellitus Current Visit: Yes Status: Chronic Assessment and plan: Patient has been having hypoglycemic episodes since yesterday. Insulin products have been held now. Blood sugars have since improved. Continue to monitor blood sugars closely. Qualifiers: Diabetes mellitus type: type 2 Diabetes mellitus complication status: with unspecified complications Diabetes mellitus medical terminologist insulin use: with usp use Qualified Code(s): E11.8 - Type 2 diabetes mellitus with unspecified complications; Z79.4 - correction (current) use of insulin (6) Essential hypertension Current Visit: Yes Status: Chronic (7) Hyperlipidemia Current Visit: Yes Status: Chronic Assessment and plan: Well-controlled. Qualifiers: Hyperlipidemia type: unspecified Qualified Code(s): E78.5 - Hyperlipidemia , unspecified (8) Osteoarthritis Current Visit: Yes Status: Chronic Qualifiers: Osteoarthritis location: unspecified site Osteoarthritis type: primary Qualified Code(s): M19.91 - Primary osteoarthritis, unspecified site (9) Dementia Current Visit: Yes Status: Chronic Assessment and plan: Chronic. Follow-up outpatient with neurology. Qualifiers: Dementia type: unspecified type Dementia behavioral disturbance: with behavioral disturbance Qualified Code(s): F03.91 - Unspecified dementia with behavioral disturbance (10) Wheezing without diagnosis of asthma Current Visit: Yes Status: Acute Assessment and plan: Since having wheezing previous diagnosis of asthma. Will treat with nebulizer bronchodilators and steroids. Could have underlying reactive airway disease. Patient does not have a history of long-term smoking. - Subjective Interval history: Patient lying in bed. Shallow respiratory depth. Patient unable to sleep well last night. Disoriented. Has been eating better today. - Constitutional Vitals: Temp Pulse Resp BP Pulse Ox 98.9 F 106 20 109/67 96 08/03/16 12:38 08/03/16 12:38 08/03/16 14:57 08/03/16 12:38 08/03/16 14:57 General appearance: Present: mild distress. Absent: answers questions appropriately Exam: Awake and alert. Disoriented. - Respiratory Respiratory exam: Present: wheezes, tachypnea. Absent: accessory muscle use, rales, rhonchi Additional comments: Decreased inspiratory depth. - Cardiovascular Cardiovascular exam: Present: RRR, +S1, +S2. Absent: diastolic murmur, gallop, rubs, systolic murmur - GI/Abdominal GI/Abdominal exam: Present: normal bowel sounds, soft, no peritoneal signs. Absent: distended, tenderness - Extremities Exam Extremities exam: Present: warm, radial pulses palpable and symetrical. Absent : calf tenderness, cyanotic, pedal edema - Neurological Exam Neurological exam: Present: CN II-XII intact, oriented X3, no focal deficits. Absent: facial droop, speech deficit Internal Medicine: Result - Labs CBC & Chem 7: 08/02/16 04:39 08/02/16 04:39 - ABG Interpretation ABG results: PT/INR, D-dimer PT 12.3 Seconds (9.4-12.1) H 08/01/16 12:23 - Impressions Impressions Chest X-Ray 08/02/16 17:48 IMPRESSION: Low volume study with mild bibasilar airspace disease, atelectasis versus pneumonia. Findings appear similar to prior exam. D/ / Nader Horan MD / Nader Horan MD Interpreting Provider: Nader Horan MD Consult Discharge Plan - Plan Referrals: Miguel Moya Jr, MD [Primary Care Provider] - - Attending Attestation This document has been at least partially created by [employer] recognition technology by Dr. Can. Errors in grammar, wording or other phrases may exist. If errors are found after the documentation is signed, they will be addressed individually in the addendum section of this document when appropriate. Medical Decision Making - MDM Narrative Medical decision making narrative: Moderate risk for complications - Medical Records Medical records reviewed: Yes I reviewed the patient's medical records. - Lab Data Lab results reviewed: Yes I reviewed the patient's lab results. Result diagrams: 08/02/16 04:39 08/02/16 04:39 Lab Results 08/01/16 08/02/16 08/02/16 Range/Units 20:05 04:39 04:39 WBC 8.2 (4.3-11.1) K/mcL RBC 3.36 L (3.82-4.97) M/mcL Hgb 9.8 L (11.5-15.4) g/dL Hct 31.1 L (35.3-44.9) % MCV 92.6 (83.0-100.0) fL MCH 29.2 (28.0-33.3) pg MCHC 31.5 L (31.6-35.5) g/dL RDW 14.1 (11.5-14.5) % Plt Count 177 (140-400) K/mcL MPV 8.8 L (9.4-12.4) fL Immature Gran % 0.6 (0-4) % Seg Neutrophils % 84.7 % Lymphocytes % 5.1 % Monocytes % 6.6 % Eosinophils % 2.8 % Basophils % 0.2 % Neutrophils # 6.9 (1.6-8.9) K/mcL Lymphocytes # 0.4 L (0.6-4.6) K/mcL Monocytes # 0.5 (0.0-1.3) K/mcL Eosinophils # 0.2 (0.0-0.6) K/mcL Basophils # 0.0 (0.0-0.2) K/mcL Sodium 143 (136-145) mEq/L Potassium 4.2 (3.5-4.5) mEq/L Chloride 113 H (98-109) mEq/L Carbon Dioxide 26 (19-29) mEq/L BUN 23 H (7-20) mg/dL Creatinine 1.02 (0.57-1.11) mg/dL Est GFR ( Amer) > 60 (> 60) Est GFR (Non-Af Amer) 52 L (> 60) BUN/Creatinine Ratio 23 (6-26) Glucose 85 (70-99) mg/dL POC Glucose 77 (58-89) Calculated Osmolality 299 (280-300) Calcium 7.8 L (8.6-10.8) mg/dL 08/02/16 08/02/16 08/02/16 Range/Units 07:05 11:36 12:22 WBC (4.3-11.1) K/mcL RBC (3.82-4.97) M/mcL Hgb (11.5-15.4) g/dL Hct (35.3-44.9) % MCV (83.0-100.0) fL MCH (28.0-33.3) pg MCHC (31.6-35.5) g/dL RDW (11.5-14.5) % Plt Count (140-400) K/mcL MPV (9.4-12.4) fL Immature Gran % (0-4) % Seg Neutrophils % % Lymphocytes % % Monocytes % % Eosinophils % % Basophils % % Neutrophils # (1.6-8.9) K/mcL Lymphocytes # (0.6-4.6) K/mcL Monocytes # (0.0-1.3) K/mcL Eosinophils # (0.0-0.6) K/mcL Basophils # (0.0-0.2) K/mcL Sodium (136-145) mEq/L Potassium (3.5-4.5) mEq/L Chloride (98-109) mEq/L Carbon Dioxide (19-29) mEq/L BUN (7-20) mg/dL Creatinine (0.57-1.11) mg/dL Est GFR ( Amer) (> 60) Est GFR (Non-Af Amer) (> 60) BUN/Creatinine Ratio (6-26) Glucose (70-99) mg/dL POC Glucose 88 54 L 45 L* (58-89) Calculated Osmolality (280-300) Calcium (8.6-10.8) mg/dL 08/02/16 08/02/16 08/02/16 Range/Units 12:40 16:28 16:49 WBC (4.3-11.1) K/mcL RBC (3.82-4.97) M/mcL Hgb (11.5-15.4) g/dL Hct (35.3-44.9) % MCV (83.0-100.0) fL MCH (28.0-33.3) pg MCHC (31.6-35.5) g/dL RDW (11.5-14.5) % Plt Count (140-400) K/mcL MPV (9.4-12.4) fL Immature Gran % (0-4) % Seg Neutrophils % % Lymphocytes % % Monocytes % % Eosinophils % % Basophils % % Neutrophils # (1.6-8.9) K/mcL Lymphocytes # (0.6-4.6) K/mcL Monocytes # (0.0-1.3) K/mcL Eosinophils # (0.0-0.6) K/mcL Basophils # (0.0-0.2) K/mcL Sodium (136-145) mEq/L Potassium (3.5-4.5) mEq/L Chloride (98-109) mEq/L Carbon Dioxide (19-29) mEq/L BUN (7-20) mg/dL Creatinine (0.57-1.11) mg/dL Est GFR ( Amer) (> 60) Est GFR (Non-Af Amer) (> 60) BUN/Creatinine Ratio (6-26) Glucose (70-99) mg/dL POC Glucose 176 H 26 L* 153 H (58-89) Calculated Osmolality (280-300) Calcium (8.6-10.8) mg/dL 08/02/16 08/02/16 08/02/16 Range/Units 19:13 19:17 19:38 WBC (4.3-11.1) K/mcL RBC (3.82-4.97) M/mcL Hgb (11.5-15.4) g/dL Hct (35.3-44.9) % MCV (83.0-100.0) fL MCH (28.0-33.3) pg MCHC (31.6-35.5) g/dL RDW (11.5-14.5) % Plt Count (140-400) K/mcL MPV (9.4-12.4) fL Immature Gran % (0-4) % Seg Neutrophils % % Lymphocytes % % Monocytes % % Eosinophils % % Basophils % % Neutrophils # (1.6-8.9) K/mcL Lymphocytes # (0.6-4.6) K/mcL Monocytes # (0.0-1.3) K/mcL Eosinophils # (0.0-0.6) K/mcL Basophils # (0.0-0.2) K/mcL Sodium (136-145) mEq/L Potassium (3.5-4.5) mEq/L Chloride (98-109) mEq/L Carbon Dioxide (19-29) mEq/L BUN (7-20) mg/dL Creatinine (0.57-1.11) mg/dL Est GFR ( Amer) (> 60) Est GFR (Non-Af Amer) (> 60) BUN/Creatinine Ratio (6-26) Glucose (70-99) mg/dL POC Glucose 40 L* 42 L* 77 (58-89) Calculated Osmolality (280-300) Calcium (8.6-10.8) mg/dL 08/02/16 08/02/16 08/03/16 Range/Units 23:47 23:54 01:11 WBC (4.3-11.1) K/mcL RBC (3.82-4.97) M/mcL Hgb (11.5-15.4) g/dL Hct (35.3-44.9) % MCV (83.0-100.0) fL MCH (28.0-33.3) pg MCHC (31.6-35.5) g/dL RDW (11.5-14.5) % Plt Count (140-400) K/mcL MPV (9.4-12.4) fL Immature Gran % (0-4) % Seg Neutrophils % % Lymphocytes % % Monocytes % % Eosinophils % % Basophils % % Neutrophils # (1.6-8.9) K/mcL Lymphocytes # (0.6-4.6) K/mcL Monocytes # (0.0-1.3) K/mcL Eosinophils # (0.0-0.6) K/mcL Basophils # (0.0-0.2) K/mcL Sodium (136-145) mEq/L Potassium (3.5-4.5) mEq/L Chloride (98-109) mEq/L Carbon Dioxide (19-29) mEq/L BUN (7-20) mg/dL Creatinine (0.57-1.11) mg/dL Est GFR ( Amer) (> 60) Est GFR (Non-Af Amer) (> 60) BUN/Creatinine Ratio (6-26) Glucose (70-99) mg/dL POC Glucose 38 L* 33 L* 56 L (58-89) Calculated Osmolality (280-300) Calcium (8.6-10.8) mg/dL 08/03/16 08/03/16 08/03/16 Range/Units 03:30 05:31 07:34 WBC (4.3-11.1) K/mcL RBC (3.82-4.97) M/mcL Hgb (11.5-15.4) g/dL Hct (35.3-44.9) % MCV (83.0-100.0) fL MCH (28.0-33.3) pg MCHC (31.6-35.5) g/dL RDW (11.5-14.5) % Plt Count (140-400) K/mcL MPV (9.4-12.4) fL Immature Gran % (0-4) % Seg Neutrophils % % Lymphocytes % % Monocytes % % Eosinophils % % Basophils % % Neutrophils # (1.6-8.9) K/mcL Lymphocytes # (0.6-4.6) K/mcL Monocytes # (0.0-1.3) K/mcL Eosinophils # (0.0-0.6) K/mcL Basophils # (0.0-0.2) K/mcL Sodium (136-145) mEq/L Potassium (3.5-4.5) mEq/L Chloride (98-109) mEq/L Carbon Dioxide (19-29) mEq/L BUN (7-20) mg/dL Creatinine (0.57-1.11) mg/dL Est GFR ( Amer) (> 60) Est GFR (Non-Af Amer) (> 60) BUN/Creatinine Ratio (6-26) Glucose (70-99) mg/dL POC Glucose 73 83 103 H (58-89) Calculated Osmolality (280-300) Calcium (8.6-10.8) mg/dL 08/03/16 Range/Units 11:07 WBC (4.3-11.1) K/mcL RBC (3.82-4.97) M/mcL Hgb (11.5-15.4) g/dL Hct (35.3-44.9) % MCV (83.0-100.0) fL MCH (28.0-33.3) pg MCHC (31.6-35.5) g/dL RDW (11.5-14.5) % Plt Count (140-400) K/mcL MPV (9.4-12.4) fL Immature Gran % (0-4) % Seg Neutrophils % % Lymphocytes % % Monocytes % % Eosinophils % % Basophils % % Neutrophils # (1.6-8.9) K/mcL Lymphocytes # (0.6-4.6) K/mcL Monocytes # (0.0-1.3) K/mcL Eosinophils # (0.0-0.6) K/mcL Basophils # (0.0-0.2) K/mcL Sodium (136-145) mEq/L Potassium (3.5-4.5) mEq/L Chloride (98-109) mEq/L Carbon Dioxide (19-29) mEq/L BUN (7-20) mg/dL Creatinine (0.57-1.11) mg/dL Est GFR ( Amer) (> 60) Est GFR (Non-Af Amer) (> 60) BUN/Creatinine Ratio (6-26) Glucose (70-99) mg/dL POC Glucose 152 H (58-89) Calculated Osmolality (280-300) Calcium (8.6-10.8) mg/dL
[2016-08-03] MEDS: MethylPREDNISolone 40 MG/ML VIAL IVP SCH (16:12)
[2016-08-03] MEDS: Melatonin 3 MG TABLET PO SCH (20:11)
[2016-08-04] MEDS: Ipratropium/Albuterol Neb 3 ML IH SCH ×6 (04:35→23:20)
[2016-08-04] MEDS ORDERED: Ringers Solution, Lactated 1,000 ML IVC SCH (04:45)
[2016-08-04 05:34] LABS: Basophils % 0.2 %; Eosinophils % 0.2 %; Hematocrit 30.4 % (35.3-44.9); Hemoglobin 9.7 g/dL (11.5-15.4); Immature Granulocytes % 0.3 % (0-4); Lymphocytes # 0.6 K/mcL (0.6-4.6); Lymphocytes % 9.7 %; Mean Corpuscular HGB Conc 31.9 g/dL (31.6-35.5); Mean Corpuscular Hemoglobin 28.4 pg (28.0-33.3); Mean Corpuscular Volume 88.9 fL (83.0-100.0); Mean Platelet Volume 9.4 fL (9.4-12.4); Monocytes # 0.2 K/mcL (0.0-1.3); Monocytes % 3.2 %; Neutrophils # 5.1 K/mcL (1.6-8.9); Platelet Count 164 K/mcL (140-400); Red Blood Count 3.42 M/mcL (3.82-4.97); Red Cell Distribution Width 13.7 % (11.5-14.5); Segmented Neutrophils % 86.4 %
[2016-08-04 05:53] LABS: Calcium 8.3 mg/dL (8.6-10.8); Potassium 4.1 mEq/L (3.5-4.5)
[2016-08-04] MEDS: *HR* Enoxaparin 40 MG/0.4 ML SYRINGE SQ SCH (05:57)
[2016-08-04] MEDS ORDERED: 0.9 % Sodium Chloride 1,000 ML IVC SCH (07:30)
[2016-08-04] MEDS: 0.9 % Sodium Chloride 1,000 ML IVC SCH ×2 (08:07→20:46)
[2016-08-04] MEDS: Aspirin Enteric Coated 81 MG Tablet PO SCH (08:08)
[2016-08-04] MEDS: Folic Acid 1 MG TABLET PO SCH (08:08)
[2016-08-04] MEDS: Thiamine (B-1) 100 MG TABLET PO SCH (08:09)
[2016-08-04] MEDS: MethylPREDNISolone 40 MG/ML VIAL IVP SCH (08:09)
[2016-08-04] MEDS: Metoprolol XL (24 HR) Succ 25 MG TAB.ER.24H PO SCH (08:09)
[2016-08-04] MEDS: Vitamin B Complex/Vit C/Vit E 1 EACH TABLET PO SCH (08:09)
--- NOTE | 2016-08-04 08:59 | Electrocardiograph Report ---
[facility] Test Date: 2016-08-01 Pat Name: Esther Cole Department: 105 Room: 3A21 Gender: F Compliance Reviewer: AUDIE : 1935 Requested By: Nasima James Order Number: [id number] Reading MD: Kai Grace MD Measurements Intervals [place] Rate: 105 P: 99 IL: 167 QRS: -12 QRSD: 106 T: 31 QT: 344 QTc: 405 Interpretive Statements SINUS TACHYCARDIA LATERAL ISCHEMIA Electronically Signed On 08-04-16 08:58:19 EST by Kai Grace MD
--- NOTE | 2016-08-04 11:02 | Internal Med Progress Note ---
Date of Encounter: 08/04/16 Time of Encounter: 10:00 - Assessment and plan (1) Sepsis Current Visit: Yes Status: Acute Assessment and plan: WBC count is normal. Chest x-ray shows basilar atelectasis/infiltrate unchanged from the prior x-ray. We will change antibiotic to ciprofloxacin. Qualifiers: Sepsis type: sepsis due to unspecified organism Qualified Code(s): A41.9 - Sepsis, unspecified organism (2) UTI (urinary tract infection) Current Visit: Yes Status: Acute Assessment and plan: Continue antibiotic treatment. Qualifiers: Urinary tract infection type: site unspecified Hematuria presence: without hematuria Qualified Code(s): N39.0 - Urinary tract infection, site not specified (3) Coronary artery disease Current Visit: Yes Status: Chronic Assessment and plan: No chest pain. On aspirin, Plavix, beta bry and statin. Qualifiers: Coronary Disease-Associated Artery/Lesion type: [place] artery [place] vs. transplanted heart: [place] heart Associated angina: without angina Qualified Code(s): I25.10 - Atherosclerotic heart disease of [place] coronary artery without angina pectoris (4) Depression Current Visit: Yes Status: Chronic Assessment and plan: Continue Paxil Qualifiers: Depression Type: unspecified Qualified Code(s): F32.9 - Major depressive disorder, single episode, unspecified (5) Diabetes mellitus Current Visit: Yes Status: Chronic Assessment and plan: Blood sugars are elevated today. Due to steroid use. Will place patient back on insulin regimen. Qualifiers: Diabetes mellitus type: type 2 Diabetes mellitus complication status: with unspecified complications Diabetes mellitus snf insulin use: with snf use Qualified Code(s): E11.8 - Type 2 diabetes mellitus with unspecified complications; Z79.4 - shelter (current) use of insulin (6) Essential hypertension Current Visit: Yes Status: Chronic Assessment and plan: Controlled. Continue current medication regimen (7) Hyperlipidemia Current Visit: Yes Status: Chronic Assessment and plan: Continue atorvastatin Qualifiers: Hyperlipidemia type: unspecified Qualified Code(s): E78.5 - Hyperlipidemia , unspecified (8) Osteoarthritis Current Visit: Yes Status: Chronic Qualifiers: Osteoarthritis location: unspecified site Osteoarthritis type: primary Qualified Code(s): M19.91 - Primary osteoarthritis, unspecified site (9) Dementia Current Visit: Yes Status: Chronic Assessment and plan: With delirium. Continue supportive care. On Seroquel twice daily. Qualifiers: Dementia type: unspecified type Dementia behavioral disturbance: with behavioral disturbance Qualified Code(s): F03.91 - Unspecified dementia with behavioral disturbance (10) Wheezing without diagnosis of asthma Current Visit: Yes Status: Acute Assessment and plan: On intravenous steroids, O2 supplementation. Lungs sound better today. Will change steroids to prednisone. (11) Acute kidney injury Current Visit: Yes Status: Acute Assessment and plan: Patient has an elevation in her creatinine to 1.37 today. We will intravenously hydrate. Avoid nephrotoxic agents. We will stop Lasix. Monitor I&O. - Subjective Interval history: Patient lying in bed. Shallow respiratory depth. Patient unable to sleep well last night. Disoriented. Has been eating better today. - Constitutional Vitals: Temp Pulse Resp BP Pulse Ox 97.8 F 105 16 148/72 98 08/04/16 10:00 08/04/16 10:00 08/04/16 10:00 08/04/16 10:00 08/04/16 10:00 General appearance: Present: mild distress. Absent: answers questions appropriately Exam: Alert but disoriented - Respiratory Respiratory exam: Present: prolonged expiratory phase, wheezes (minimal). Absent: accessory muscle use, rales, rhonchi - Cardiovascular Cardiovascular exam: Present: RRR, +S1, +S2. Absent: diastolic murmur, gallop, rubs, systolic murmur - Extremities Exam Extremities exam: Present: warm, radial pulses palpable and symetrical. Absent : calf tenderness, cyanotic, pedal edema - Neurological Exam Neurological exam: Present: altered, no focal deficits. Absent: facial droop, speech deficit - Psychiatric Psychiatric exam: Present: flat affect Internal Medicine: Result - Labs CBC & Chem 7: 08/04/16 05:01 08/04/16 05:01 Labs: Short CBC 08/04/16 Range/Units 05:01 WBC 5.9 (4.3-11.1) K/mcL Hgb 9.7 L (11.5-15.4) g/dL Hct 30.4 L (35.3-44.9) % Plt Count 164 (140-400) K/mcL Neutrophils # 5.1 (1.6-8.9) K/mcL BMP 08/04/16 05:01 Sodium 138 Potassium 4.1 Chloride 107 Carbon Dioxide 21 BUN 24 H Creatinine 1.37 H Glucose 354 H Calcium 8.3 L - ABG Interpretation ABG results: PT/INR, D-dimer PT 12.3 Seconds (9.4-12.1) H 08/01/16 12:23 Consult Discharge Plan - Plan Referrals: Miguel Moya Jr, MD [Primary Care Provider] - - Attending Attestation This document has been at least partially created by [employer] recognition technology by Dr. Can. Errors in grammar, wording or other phrases may exist. If errors are found after the documentation is signed, they will be addressed individually in the addendum section of this document when appropriate. Medical Decision Making - MDM Narrative Medical decision making narrative: Moderate risk of complications - Lab Data Lab results reviewed: Yes I reviewed the patient's lab results. Result diagrams: 08/04/16 05:01 08/04/16 05:01 Lab Results 08/01/16 08/02/16 08/02/16 Range/Units 20:05 04:39 04:39 WBC 8.2 (4.3-11.1) K/mcL RBC 3.36 L (3.82-4.97) M/mcL Hgb 9.8 L (11.5-15.4) g/dL Hct 31.1 L (35.3-44.9) % MCV 92.6 (83.0-100.0) fL MCH 29.2 (28.0-33.3) pg MCHC 31.5 L (31.6-35.5) g/dL RDW 14.1 (11.5-14.5) % Plt Count 177 (140-400) K/mcL MPV 8.8 L (9.4-12.4) fL Immature Gran % 0.6 (0-4) % Seg Neutrophils % 84.7 % Lymphocytes % 5.1 % Monocytes % 6.6 % Eosinophils % 2.8 % Basophils % 0.2 % Neutrophils # 6.9 (1.6-8.9) K/mcL Lymphocytes # 0.4 L (0.6-4.6) K/mcL Monocytes # 0.5 (0.0-1.3) K/mcL Eosinophils # 0.2 (0.0-0.6) K/mcL Basophils # 0.0 (0.0-0.2) K/mcL Sodium 143 (136-145) mEq/L Potassium 4.2 (3.5-4.5) mEq/L Chloride 113 H (98-109) mEq/L Carbon Dioxide 26 (19-29) mEq/L BUN 23 H (7-20) mg/dL Creatinine 1.02 (0.57-1.11) mg/dL Est GFR ( Amer) > 60 (> 60) Est GFR (Non-Af Amer) 52 L (> 60) BUN/Creatinine Ratio 23 (6-26) Glucose 85 (70-99) mg/dL POC Glucose 77 (58-89) Calculated Osmolality 299 (280-300) Calcium 7.8 L (8.6-10.8) mg/dL 08/02/16 08/02/16 08/02/16 Range/Units 07:05 11:36 12:22 WBC (4.3-11.1) K/mcL RBC (3.82-4.97) M/mcL Hgb (11.5-15.4) g/dL Hct (35.3-44.9) % MCV (83.0-100.0) fL MCH (28.0-33.3) pg MCHC (31.6-35.5) g/dL RDW (11.5-14.5) % Plt Count (140-400) K/mcL MPV (9.4-12.4) fL Immature Gran % (0-4) % Seg Neutrophils % % Lymphocytes % % Monocytes % % Eosinophils % % Basophils % % Neutrophils # (1.6-8.9) K/mcL Lymphocytes # (0.6-4.6) K/mcL Monocytes # (0.0-1.3) K/mcL Eosinophils # (0.0-0.6) K/mcL Basophils # (0.0-0.2) K/mcL Sodium (136-145) mEq/L Potassium (3.5-4.5) mEq/L Chloride (98-109) mEq/L Carbon Dioxide (19-29) mEq/L BUN (7-20) mg/dL Creatinine (0.57-1.11) mg/dL Est GFR ( Amer) (> 60) Est GFR (Non-Af Amer) (> 60) BUN/Creatinine Ratio (6-26) Glucose (70-99) mg/dL POC Glucose 88 54 L 45 L* (58-89) Calculated Osmolality (280-300) Calcium (8.6-10.8) mg/dL 08/02/16 08/02/16 08/02/16 Range/Units 12:40 16:28 16:49 WBC (4.3-11.1) K/mcL RBC (3.82-4.97) M/mcL Hgb (11.5-15.4) g/dL Hct (35.3-44.9) % MCV (83.0-100.0) fL MCH (28.0-33.3) pg MCHC (31.6-35.5) g/dL RDW (11.5-14.5) % Plt Count (140-400) K/mcL MPV (9.4-12.4) fL Immature Gran % (0-4) % Seg Neutrophils % % Lymphocytes % % Monocytes % % Eosinophils % % Basophils % % Neutrophils # (1.6-8.9) K/mcL Lymphocytes # (0.6-4.6) K/mcL Monocytes # (0.0-1.3) K/mcL Eosinophils # (0.0-0.6) K/mcL Basophils # (0.0-0.2) K/mcL Sodium (136-145) mEq/L Potassium (3.5-4.5) mEq/L Chloride (98-109) mEq/L Carbon Dioxide (19-29) mEq/L BUN (7-20) mg/dL Creatinine (0.57-1.11) mg/dL Est GFR ( Amer) (> 60) Est GFR (Non-Af Amer) (> 60) BUN/Creatinine Ratio (6-26) Glucose (70-99) mg/dL POC Glucose 176 H 26 L* 153 H (58-89) Calculated Osmolality (280-300) Calcium (8.6-10.8) mg/dL 08/02/16 08/02/16 08/02/16 Range/Units 19:13 19:17 19:38 WBC (4.3-11.1) K/mcL RBC (3.82-4.97) M/mcL Hgb (11.5-15.4) g/dL Hct (35.3-44.9) % MCV (83.0-100.0) fL MCH (28.0-33.3) pg MCHC (31.6-35.5) g/dL RDW (11.5-14.5) % Plt Count (140-400) K/mcL MPV (9.4-12.4) fL Immature Gran % (0-4) % Seg Neutrophils % % Lymphocytes % % Monocytes % % Eosinophils % % Basophils % % Neutrophils # (1.6-8.9) K/mcL Lymphocytes # (0.6-4.6) K/mcL Monocytes # (0.0-1.3) K/mcL Eosinophils # (0.0-0.6) K/mcL Basophils # (0.0-0.2) K/mcL Sodium (136-145) mEq/L Potassium (3.5-4.5) mEq/L Chloride (98-109) mEq/L Carbon Dioxide (19-29) mEq/L BUN (7-20) mg/dL Creatinine (0.57-1.11) mg/dL Est GFR ( Amer) (> 60) Est GFR (Non-Af Amer) (> 60) BUN/Creatinine Ratio (6-26) Glucose (70-99) mg/dL POC Glucose 40 L* 42 L* 77 (58-89) Calculated Osmolality (280-300) Calcium (8.6-10.8) mg/dL 08/02/16 08/02/16 08/03/16 Range/Units 23:47 23:54 01:11 WBC (4.3-11.1) K/mcL RBC (3.82-4.97) M/mcL Hgb (11.5-15.4) g/dL Hct (35.3-44.9) % MCV (83.0-100.0) fL MCH (28.0-33.3) pg MCHC (31.6-35.5) g/dL RDW (11.5-14.5) % Plt Count (140-400) K/mcL MPV (9.4-12.4) fL Immature Gran % (0-4) % Seg Neutrophils % % Lymphocytes % % Monocytes % % Eosinophils % % Basophils % % Neutrophils # (1.6-8.9) K/mcL Lymphocytes # (0.6-4.6) K/mcL Monocytes # (0.0-1.3) K/mcL Eosinophils # (0.0-0.6) K/mcL Basophils # (0.0-0.2) K/mcL Sodium (136-145) mEq/L Potassium (3.5-4.5) mEq/L Chloride (98-109) mEq/L Carbon Dioxide (19-29) mEq/L BUN (7-20) mg/dL Creatinine (0.57-1.11) mg/dL Est GFR ( Amer) (> 60) Est GFR (Non-Af Amer) (> 60) BUN/Creatinine Ratio (6-26) Glucose (70-99) mg/dL POC Glucose 38 L* 33 L* 56 L (58-89) Calculated Osmolality (280-300) Calcium (8.6-10.8) mg/dL 08/03/16 08/03/16 08/03/16 Range/Units 03:30 05:31 07:34 WBC (4.3-11.1) K/mcL RBC (3.82-4.97) M/mcL Hgb (11.5-15.4) g/dL Hct (35.3-44.9) % MCV (83.0-100.0) fL MCH (28.0-33.3) pg MCHC (31.6-35.5) g/dL RDW (11.5-14.5) % Plt Count (140-400) K/mcL MPV (9.4-12.4) fL Immature Gran % (0-4) % Seg Neutrophils % % Lymphocytes % % Monocytes % % Eosinophils % % Basophils % % Neutrophils # (1.6-8.9) K/mcL Lymphocytes # (0.6-4.6) K/mcL Monocytes # (0.0-1.3) K/mcL Eosinophils # (0.0-0.6) K/mcL Basophils # (0.0-0.2) K/mcL Sodium (136-145) mEq/L Potassium (3.5-4.5) mEq/L Chloride (98-109) mEq/L Carbon Dioxide (19-29) mEq/L BUN (7-20) mg/dL Creatinine (0.57-1.11) mg/dL Est GFR ( Amer) (> 60) Est GFR (Non-Af Amer) (> 60) BUN/Creatinine Ratio (6-26) Glucose (70-99) mg/dL POC Glucose 73 83 103 H (58-89) Calculated Osmolality (280-300) Calcium (8.6-10.8) mg/dL 08/03/16 08/03/16 08/03/16 Range/Units 11:07 15:17 20:17 WBC (4.3-11.1) K/mcL RBC (3.82-4.97) M/mcL Hgb (11.5-15.4) g/dL Hct (35.3-44.9) % MCV (83.0-100.0) fL MCH (28.0-33.3) pg MCHC (31.6-35.5) g/dL RDW (11.5-14.5) % Plt Count (140-400) K/mcL MPV (9.4-12.4) fL Immature Gran % (0-4) % Seg Neutrophils % % Lymphocytes % % Monocytes % % Eosinophils % % Basophils % % Neutrophils # (1.6-8.9) K/mcL Lymphocytes # (0.6-4.6) K/mcL Monocytes # (0.0-1.3) K/mcL Eosinophils # (0.0-0.6) K/mcL Basophils # (0.0-0.2) K/mcL Sodium (136-145) mEq/L Potassium (3.5-4.5) mEq/L Chloride (98-109) mEq/L Carbon Dioxide (19-29) mEq/L BUN (7-20) mg/dL Creatinine (0.57-1.11) mg/dL Est GFR ( Amer) (> 60) Est GFR (Non-Af Amer) (> 60) BUN/Creatinine Ratio (6-26) Glucose (70-99) mg/dL POC Glucose 152 H 225 H 261 H (58-89) Calculated Osmolality (280-300) Calcium (8.6-10.8) mg/dL 08/03/16 08/04/16 08/04/16 Range/Units 23:32 04:07 05:01 WBC 5.9 (4.3-11.1) K/mcL RBC 3.42 L (3.82-4.97) M/mcL Hgb 9.7 L (11.5-15.4) g/dL Hct 30.4 L (35.3-44.9) % MCV 88.9 (83.0-100.0) fL MCH 28.4 (28.0-33.3) pg MCHC 31.9 (31.6-35.5) g/dL RDW 13.7 (11.5-14.5) % Plt Count 164 (140-400) K/mcL MPV 9.4 (9.4-12.4) fL Immature Gran % 0.3 (0-4) % Seg Neutrophils % 86.4 % Lymphocytes % 9.7 % Monocytes % 3.2 % Eosinophils % 0.2 % Basophils % 0.2 % Neutrophils # 5.1 (1.6-8.9) K/mcL Lymphocytes # 0.6 (0.6-4.6) K/mcL Monocytes # 0.2 (0.0-1.3) K/mcL Eosinophils # 0.0 (0.0-0.6) K/mcL Basophils # 0.0 (0.0-0.2) K/mcL Sodium (136-145) mEq/L Potassium (3.5-4.5) mEq/L Chloride (98-109) mEq/L Carbon Dioxide (19-29) mEq/L BUN (7-20) mg/dL Creatinine (0.57-1.11) mg/dL Est GFR ( Amer) (> 60) Est GFR (Non-Af Amer) (> 60) BUN/Creatinine Ratio (6-26) Glucose (70-99) mg/dL POC Glucose 326 H 352 H (58-89) Calculated Osmolality (280-300) Calcium (8.6-10.8) mg/dL 08/04/16 08/04/16 Range/Units 05:01 07:16 WBC (4.3-11.1) K/mcL RBC (3.82-4.97) M/mcL Hgb (11.5-15.4) g/dL Hct (35.3-44.9) % MCV (83.0-100.0) fL MCH (28.0-33.3) pg MCHC (31.6-35.5) g/dL RDW (11.5-14.5) % Plt Count (140-400) K/mcL MPV (9.4-12.4) fL Immature Gran % (0-4) % Seg Neutrophils % % Lymphocytes % % Monocytes % % Eosinophils % % Basophils % % Neutrophils # (1.6-8.9) K/mcL Lymphocytes # (0.6-4.6) K/mcL Monocytes # (0.0-1.3) K/mcL Eosinophils # (0.0-0.6) K/mcL Basophils # (0.0-0.2) K/mcL Sodium 138 (136-145) mEq/L Potassium 4.1 (3.5-4.5) mEq/L Chloride 107 (98-109) mEq/L Carbon Dioxide 21 (19-29) mEq/L BUN 24 H (7-20) mg/dL Creatinine 1.37 H (0.57-1.11) mg/dL Est GFR ( Amer) 45 L (> 60) Est GFR (Non-Af Amer) 37 L (> 60) BUN/Creatinine Ratio 18 (6-26) Glucose 354 H (70-99) mg/dL POC Glucose 308 H (58-89) Calculated Osmolality 304 H (280-300) Calcium 8.3 L (8.6-10.8) mg/dL - Radiology Data Radiology results reviewed: Yes I reviewed the patient's radiology results.
[2016-08-04] MEDS: Insulin LISPRO 300 UNITS/3 ML VIAL SQ SCH ×3 (11:55→21:02)
[2016-08-04] MEDS: *HR* OxyCODONE Immed Rel 5 MG TABLET PO PRN (14:46)
[2016-08-04 14:54] LABS: Bilirubin,Urine Negative (Negative); Blood,Urine Moderate (Negative); Clarity,Urine Turbid (Clear); Color,Urine Yellow (Yellow); Glucose,Urine (UA) 100 mg/dL (Normal); Ketones,Urine Negative (Negative); Leukocyte Esterase,Urine Negative (Negative); Nitrite,Urine Negative (Negative); Protein,Urine 30 mg/dL (Neg-Trace); Specific Gravity,Urine 1.014 (1.010-1.025); Urobilinogen,Urine Normal (Normal)
[2016-08-04 14:58] LABS: Squamous Epithelial Cell,Urine Many per lpf (None-Few)
[2016-08-04 14:59] LABS: Amphetamine Screen,Urine Negative ng/mL (Cutoff=1000); Barbiturate Screen,Urine Negative ng/mL (Cutoff=200); Benzodiazepines Screen,Urine Negative ng/mL (Cutoff=200); Cannabinoid Screen,Urine Negative ng/mL (Cutoff = 50); Cocaine Screen,Urine Negative ng/mL (Cutoff= 300); Opiate Screen,Urine Negative ng/mL (Cutoff=300); Phencyclidine Screen,Urine Negative ng/mL (Cutoff=25)
[2016-08-04 15:11] LABS: Bacteria,Urine Many per hpf (None-Few); Granular Casts,Urine Few per lpf (None Seen); Hyaline Casts,Urine Few per lpf (None-Few); RBC,Urine 0-3 per hpf (0-3); Renal Epithelial Cells,Urine Few per hpf (None-Few)
[2016-08-04] MEDS: Insulin DETEMIR 100 UNIT/ML X5UNITS SQ SCH (20:53)
[2016-08-04] MEDS: Melatonin 3 MG TABLET PO SCH (22:55)
[2016-08-05] MEDS: Ipratropium/Albuterol Neb 3 ML IH SCH ×6 (04:54→23:23)
[2016-08-05 05:01] LABS: Basophils % 0.1 %; Hematocrit 29.2 % (35.3-44.9); Hemoglobin 9.1 g/dL (11.5-15.4); Immature Granulocytes % 0.6 % (0-4); Lymphocytes # 0.9 K/mcL (0.6-4.6); Lymphocytes % 7.2 %; Mean Corpuscular HGB Conc 31.2 g/dL (31.6-35.5); Mean Corpuscular Hemoglobin 28.3 pg (28.0-33.3); Mean Platelet Volume 9.7 fL (9.4-12.4); Monocytes # 0.7 K/mcL (0.0-1.3); Monocytes % 5.5 %; Neutrophils # 11.1 K/mcL (1.6-8.9); Platelet Count 172 K/mcL (140-400); Red Blood Count 3.21 M/mcL (3.82-4.97); Red Cell Distribution Width 13.9 % (11.5-14.5); Segmented Neutrophils % 86.6 %
[2016-08-05 05:12] LABS: Calcium 8.1 mg/dL (8.6-10.8); Potassium 4.5 mEq/L (3.5-4.5)
[2016-08-05] MEDS: *HR* Enoxaparin 40 MG/0.4 ML SYRINGE SQ SCH (06:37)
[2016-08-05] MEDS: *HR* OxyCODONE Immed Rel 5 MG TABLET PO PRN ×2 (06:38→20:42)
[2016-08-05] MEDS: 0.9 % Sodium Chloride 1,000 ML IVC SCH ×2 (08:26→12:42)
[2016-08-05] MEDS: Insulin LISPRO 300 UNITS/3 ML VIAL SQ SCH ×4 (08:27→20:40)
[2016-08-05] MEDS: Aspirin Enteric Coated 81 MG Tablet PO SCH (08:28)
[2016-08-05] MEDS: Insulin DETEMIR 100 UNIT/ML X5UNITS SQ SCH ×2 (08:28→20:42)
[2016-08-05] MEDS: Folic Acid 1 MG TABLET PO SCH (08:28)
[2016-08-05] MEDS: Vitamin B Complex/Vit C/Vit E 1 EACH TABLET PO SCH (08:30)
[2016-08-05] MEDS: Metoprolol XL (24 HR) Succ 25 MG TAB.ER.24H PO SCH (08:30)
[2016-08-05] MEDS: predniSONE 20 MG TABLET PO SCH (08:30)
[2016-08-05] MEDS: Thiamine (B-1) 100 MG TABLET PO SCH (08:31)
--- NOTE | 2016-08-05 12:30 | Internal Med Progress Note ---
Date of Encounter: 08/05/16 Time of Encounter: 09:00 - Assessment and plan (1) Sepsis Current Visit: Yes Status: Acute Assessment and plan: Resolved. WBC count elevation possibly due to steroid use. Chest x-ray shows stable basilar atelectasis/infiltrate unchanged from the prior x-ray. We will continue iv ciprofloxacin. Qualifiers: Sepsis type: sepsis due to unspecified organism Qualified Code(s): A41.9 - Sepsis, unspecified organism (2) Acute kidney injury Current Visit: Yes Status: Acute Assessment and plan: Patient has an elevation in her creatinine to 1.37 today. We will intravenously hydrate. Avoid nephrotoxic agents. We will stop Lasix. Monitor I&O and renal functions. (3) UTI (urinary tract infection) Current Visit: Yes Status: Acute Assessment and plan: Continue antibiotic treatment. Qualifiers: Urinary tract infection type: site unspecified Hematuria presence: without hematuria Qualified Code(s): N39.0 - Urinary tract infection, site not specified (4) Wheezing without diagnosis of asthma Current Visit: Yes Status: Acute Assessment and plan: On po steroids, O2 supplementation. Lungs sound better today. (5) Coronary artery disease Current Visit: Yes Status: Chronic Assessment and plan: No chest pain. On aspirin, Plavix, beta bry and statin. Qualifiers: Coronary Disease-Associated Artery/Lesion type: [place] artery [place] vs. transplanted heart: [place] heart Associated angina: without angina Qualified Code(s): I25.10 - Atherosclerotic heart disease of [place] coronary artery without angina pectoris (6) Depression Current Visit: Yes Status: Chronic Assessment and plan: Continue Paxil Qualifiers: Depression Type: unspecified Qualified Code(s): F32.9 - Major depressive disorder, single episode, unspecified (7) Diabetes mellitus Current Visit: Yes Status: Chronic Assessment and plan: Blood sugars are elevated today. Due to steroid use. Will place patient back on insulin regimen. 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 Continue current medication regimen (9) Hyperlipidemia Current Visit: Yes Status: Chronic Assessment and plan: Continue atorvastatin Qualifiers: Hyperlipidemia type: unspecified Qualified Code(s): E78.5 - Hyperlipidemia , unspecified (10) Osteoarthritis Current Visit: Yes Status: Chronic Assessment and plan: Chronic. Supportive care. Qualifiers: Osteoarthritis location: unspecified site Osteoarthritis type: primary Qualified Code(s): M19.91 - Primary osteoarthritis, unspecified site (11) DVT prophylaxis Current Visit: Yes Status: Acute Assessment and plan: Heparin subcutaneously - Time Spent With Patient 25 - 35 minutes - Subjective Interval history: Patient is a 81-year-old female admitted for altered mental status and UTI. Past medical history is significant for CAD, dementia, diabetes, hyperlipidemia , hypertension, kidney stone. Patient was seen and examined today. She is still drawsy and the mental status is not Back to baseline. She has no fever, no nausea, no vomiting, no abdominal pain. We will continue antibiotic. She has a elevated creatinine level. We will continue IV fluid and follow up her renal function. Elevated WBC is possibly due to steroid use. - Constitutional Vitals: Temp Pulse Resp BP Pulse Ox 98.5 F 65 16 139/65 100 08/05/16 10:55 08/05/16 10:55 08/05/16 11:05 08/05/16 10:55 08/05/16 11:05 General appearance: Present: A&O X 1, mild distress. Absent: answers questions appropriately - Head Head exam: Present: atraumatic, normocephalic - Eye Eye exam: Present: PERRL, conjuntiva pink, sclera anicteric Pupils: Present: PERRL - Neck Neck exam general surgery: Present: supple, trachea midline. Absent: lymphadenopathy - Respiratory Respiratory exam: Present: CTAB, rhonchi (Scattered rhonchi bilaterally.). Absent: accessory muscle use, rales, wheezes - Cardiovascular Cardiovascular exam: Present: RRR, +S1, +S2. Absent: diastolic murmur, gallop, rubs, systolic murmur - GI/Abdominal GI/Abdominal exam: Present: normal bowel sounds, soft, no peritoneal signs. Absent: distended, tenderness - Extremities Exam Extremities exam: Present: warm, radial pulses palpable and symetrical. Absent : calf tenderness, cyanotic, pedal edema - Neurological Exam Neurological exam: Present: CN II-XII intact, oriented X3, no focal deficits. Absent: pronater drift, facial droop, speech deficit - Skin Skin exam: Present: dry, intact Internal Medicine: Result - Labs CBC & Chem 7: 08/05/16 04:38 08/05/16 04:38 Labs: Short CBC 08/05/16 Range/Units 04:38 WBC 12.8 H D (4.3-11.1) K/mcL Hgb 9.1 L (11.5-15.4) g/dL Hct 29.2 L (35.3-44.9) % Plt Count 172 (140-400) K/mcL Neutrophils # 11.1 H (1.6-8.9) K/mcL BMP 08/05/16 04:38 Sodium 141 Potassium 4.5 Chloride 111 H Carbon Dioxide 22 BUN 31 H Creatinine 1.38 H Glucose 246 H Calcium 8.1 L Urine 08/04/16 Range/Units 14:30 Urine Color Yellow (Yellow) Urine Clarity Turbid A (Clear) Urine pH 5.0 (5.0-8.0) pH Units Ur Specific [place] 1.014 (1.010-1.025) Urine Protein 30 H (Neg-Trace) mg/dL Urine Glucose (UA) 100 H (Normal) mg/dL - ABG Interpretation ABG results: PT/INR, D-dimer PT 12.3 Seconds (9.4-12.1) H 08/01/16 12:23 Consult Discharge Plan - Plan Referrals: Miguel Moya Jr, MD [Primary Care Provider] -
[2016-08-05] MEDS ORDERED: Piperacillin/Tazobactam 3.375 GM in D5% in Water (Mini-Bag+) 100 ML IVPB SCH (16:00)
[2016-08-05] MEDS: *HR* Heparin 5,000 UNIT/ML VIAL SQ SCH (17:53)
[2016-08-05] MEDS: Melatonin 3 MG TABLET PO SCH (20:42)
[2016-08-06] MEDS: Ipratropium/Albuterol Neb 3 ML IH SCH ×5 (04:25→20:18)
[2016-08-06 05:09] LABS: Basophils % 0.1 %; Hemoglobin 9.5 g/dL (11.5-15.4); Immature Granulocytes % 0.6 % (0-4); Lymphocytes % 8.3 %; Mean Corpuscular HGB Conc 31.7 g/dL (31.6-35.5); Mean Corpuscular Hemoglobin 28.8 pg (28.0-33.3); Mean Corpuscular Volume 90.9 fL (83.0-100.0); Mean Platelet Volume 9.8 fL (9.4-12.4); Monocytes # 0.9 K/mcL (0.0-1.3); Monocytes % 7.5 %; Neutrophils # 10.4 K/mcL (1.6-8.9); Platelet Count 189 K/mcL (140-400); Segmented Neutrophils % 83.5 %
[2016-08-06 05:29] LABS: Potassium 4.3 mEq/L (3.5-4.5)
[2016-08-06] MEDS: 0.9 % Sodium Chloride 1,000 ML IVC SCH ×2 (06:13→20:02)
[2016-08-06] MEDS: *HR* Heparin 5,000 UNIT/ML VIAL SQ SCH ×2 (06:13→18:12)
[2016-08-06] MEDS: *HR* OxyCODONE Immed Rel 5 MG TABLET PO PRN (06:15)
[2016-08-06] MEDS: Insulin LISPRO 300 UNITS/3 ML VIAL SQ SCH ×4 (07:54→19:57)
[2016-08-06] MEDS: Vitamin B Complex/Vit C/Vit E 1 EACH TABLET PO SCH (09:58)
[2016-08-06] MEDS: Metoprolol XL (24 HR) Succ 25 MG TAB.ER.24H PO SCH (09:58)
[2016-08-06] MEDS: predniSONE 20 MG TABLET PO SCH (09:59)
[2016-08-06] MEDS: Thiamine (B-1) 100 MG TABLET PO SCH (09:59)
[2016-08-06] MEDS: Aspirin Enteric Coated 81 MG Tablet PO SCH (09:59)
[2016-08-06] MEDS: Folic Acid 1 MG TABLET PO SCH (09:59)
[2016-08-06] MEDS: Insulin DETEMIR 100 UNIT/ML X5UNITS SQ SCH ×2 (10:22→19:54)
--- NOTE | 2016-08-06 10:25 | Internal Med Progress Note ---
Date of Encounter: 08/06/16 Time of Encounter: 09:00 - Assessment and plan (1) Sepsis Current Visit: Yes Status: Acute Assessment and plan: Resolved. WBC count elevation possibly due to steroid use. Chest x-ray shows stable basilar atelectasis/infiltrate unchanged from the prior x-ray. We will continue iv ciprofloxacin. Qualifiers: Sepsis type: sepsis due to unspecified organism Qualified Code(s): A41.9 - Sepsis, unspecified organism (2) Acute kidney injury Current Visit: Yes Status: Acute Assessment and plan: Patient has an elevation in her creatinine to 1.37 today. Pt has poor intake. We will intravenously hydrate, increase IVF rate to 90ml/hr. Avoid nephrotoxic agents. We will stop Lasix. Monitor I&O and renal functions. (3) UTI (urinary tract infection) Current Visit: Yes Status: Acute Assessment and plan: Continue antibiotic treatment. Qualifiers: Urinary tract infection type: site unspecified Hematuria presence: without hematuria Qualified Code(s): N39.0 - Urinary tract infection, site not specified (4) Wheezing without diagnosis of asthma Current Visit: Yes Status: Acute Assessment and plan: On po steroids, O2 supplementation. Lungs sound better today. Will taper down steroid (5) Coronary artery disease Current Visit: Yes Status: Chronic Assessment and plan: No chest pain. On aspirin, Plavix, beta bry and statin. Qualifiers: Coronary Disease-Associated Artery/Lesion type: [place] artery [place] vs. transplanted heart: [place] heart Associated angina: without angina Qualified Code(s): I25.10 - Atherosclerotic heart disease of [place] coronary artery without angina pectoris (6) Depression Current Visit: Yes Status: Chronic Assessment and plan: Continue Paxil Qualifiers: Depression Type: unspecified Qualified Code(s): F32.9 - Major depressive disorder, single episode, unspecified (7) Diabetes mellitus Current Visit: Yes Status: Chronic Assessment and plan: Blood sugars are elevated. Due to steroid use. Will place patient back on insulin regimen. Qualifiers: Diabetes mellitus type: type 2 Diabetes mellitus complication status: with unspecified complications Diabetes mellitus snf insulin use: with joint terminal attack controller use Qualified Code(s): E11.8 - Type 2 diabetes mellitus with unspecified complications; Z79.4 - detention (current) use of insulin (8) Essential hypertension Current Visit: Yes Status: Chronic Assessment and plan: Controlled. Continue current medication regimen (9) Hyperlipidemia Current Visit: Yes Status: Chronic Qualifiers: Hyperlipidemia type: unspecified Qualified Code(s): E78.5 - Hyperlipidemia , unspecified (10) Osteoarthritis Current Visit: Yes Status: Chronic Assessment and plan: Chronic. Supportive care. Qualifiers: Osteoarthritis location: unspecified site Osteoarthritis type: primary Qualified Code(s): M19.91 - Primary osteoarthritis, unspecified site (11) DVT prophylaxis Current Visit: Yes Status: Acute Assessment and plan: Heparin subcutaneously - Time Spent With Patient 25 - 35 minutes - Subjective Interval history: Patient is a 81-year-old female admitted for altered mental status and UTI. Past medical history is significant for CAD, dementia, diabetes, hyperlipidemia , hypertension, kidney stone. Patient was seen and examined today. She is still drawsy and the mental status is not Back to baseline. But less confusion per her daughter. She has no fever , no nausea, no vomiting, no abdominal pain. Will continue antibiotic. Slightly improvement with renal function. We will continue IV fluid, increase rate to 90 mL per hour, and follow up her renal function. Elevated WBC is possibly due to steroid use. - Constitutional Vitals: Temp Pulse Resp BP Pulse Ox 98.1 F 60 16 137/68 100 08/06/16 05:33 08/06/16 05:33 08/06/16 07:58 08/06/16 05:33 08/06/16 07:58 General appearance: Present: A&O X 1, mild distress. Absent: answers questions appropriately - Head Head exam: Present: atraumatic, normocephalic - Eye Eye exam: Present: PERRL, conjuntiva pink, sclera anicteric Pupils: Present: PERRL - Neck Neck exam general surgery: Present: supple, trachea midline. Absent: lymphadenopathy - Respiratory Respiratory exam: Present: CTAB, wheezes (Scattered wheezes on the left lung). Absent: accessory muscle use, rales, rhonchi - Cardiovascular Cardiovascular exam: Present: RRR, +S1, +S2. Absent: diastolic murmur, gallop, rubs, systolic murmur - GI/Abdominal GI/Abdominal exam: Present: normal bowel sounds, soft, no peritoneal signs. Absent: distended, tenderness - Extremities Exam Extremities exam: Present: warm, radial pulses palpable and symetrical. Absent : calf tenderness, cyanotic, pedal edema - Neurological Exam Neurological exam: Present: CN II-XII intact, oriented X3, no focal deficits. Absent: pronater drift, facial droop, speech deficit - Skin Skin exam: Present: dry, intact Internal Medicine: Result - Labs CBC & Chem 7: 08/06/16 04:56 08/06/16 04:56 Labs: Short CBC 08/06/16 Range/Units 04:56 WBC 12.4 H (4.3-11.1) K/mcL Hgb 9.5 L (11.5-15.4) g/dL Hct 30.0 L (35.3-44.9) % Plt Count 189 (140-400) K/mcL Neutrophils # 10.4 H (1.6-8.9) K/mcL BMP 08/06/16 04:56 Sodium 142 Potassium 4.3 Chloride 112 H Carbon Dioxide 21 BUN 37 H Creatinine 1.24 H Glucose 163 H Calcium 8.0 L - ABG Interpretation ABG results: PT/INR, D-dimer PT 12.3 Seconds (9.4-12.1) H 08/01/16 12:23 - Impressions Impressions Chest X-Ray 08/05/16 11:51 IMPRESSION: Stable appearance of the chest with a moderate amount of bibasilar atelectasis versus pneumonia, and possible right pleural effusion D/ / Kamron Savage MD / Kamron Savage MD Interpreting Provider: Kamron Savage MD Consult Discharge Plan - Plan Referrals: Miguel Moya Jr, MD [Primary Care Provider] -
[2016-08-06] MEDS: Melatonin 3 MG TABLET PO SCH (19:52)
[2016-08-06] MEDS: Acetaminophen 325 MG TABLET PO PRN (23:58)
[2016-08-07] MEDS: Ipratropium/Albuterol Neb 3 ML IH SCH ×7 (00:08→23:59)
[2016-08-07] MEDS ORDERED: *HR* LORazepam 2 MG/ML VIAL IVP PRN (02:23)
[2016-08-07] MEDS: *HR* OxyCODONE Immed Rel 5 MG TABLET PO PRN (03:50)
[2016-08-07 04:29] LABS: Basophils % 0.1 %; Eosinophils % 0.1 %; Hemoglobin 9.3 g/dL (11.5-15.4); Immature Granulocytes % 0.8 % (0-4); Lymphocytes # 1.4 K/mcL (0.6-4.6); Lymphocytes % 12.4 %; Mean Corpuscular Hemoglobin 28.6 pg (28.0-33.3); Mean Corpuscular Volume 92.3 fL (83.0-100.0); Mean Platelet Volume 9.8 fL (9.4-12.4); Monocytes # 1.2 K/mcL (0.0-1.3); Monocytes % 10.8 %; Neutrophils # 8.3 K/mcL (1.6-8.9); Platelet Count 206 K/mcL (140-400); Red Blood Count 3.25 M/mcL (3.82-4.97); Segmented Neutrophils % 75.8 %
[2016-08-07 04:35] LABS: BUN/Creatinine Ratio 35 (6-26); Blood Urea Nitrogen 35 mg/dL (7-20); Calcium 8.1 mg/dL (8.6-10.8); Carbon Dioxide 20 mEq/L (19-29); Chloride 115 mEq/L (98-109); Glucose 128 mg/dL (70-99); Osmolality,Calculated 308 (280-300); Potassium 4.4 mEq/L (3.5-4.5); Sodium 144 mEq/L (136-145); eGFR For African Americans > 60 (> 60); eGFR For Non-African Americans 53 (> 60)
[2016-08-07] MEDS: *HR* Heparin 5,000 UNIT/ML VIAL SQ SCH ×2 (06:01→19:02)
[2016-08-07] MEDS: Insulin LISPRO 300 UNITS/3 ML VIAL SQ SCH ×4 (07:32→20:46)
[2016-08-07] MEDS: 0.9 % Sodium Chloride 1,000 ML IVC SCH (09:27)
[2016-08-07] MEDS: Folic Acid 1 MG TABLET PO SCH (09:32)
[2016-08-07] MEDS: Metoprolol XL (24 HR) Succ 25 MG TAB.ER.24H PO SCH (09:33)
[2016-08-07] MEDS: predniSONE 20 MG TABLET PO SCH (09:33)
[2016-08-07] MEDS: Thiamine (B-1) 100 MG TABLET PO SCH (09:33)
[2016-08-07] MEDS: Vitamin B Complex/Vit C/Vit E 1 EACH TABLET PO SCH (09:33)
[2016-08-07] MEDS: Aspirin Enteric Coated 81 MG Tablet PO SCH (09:33)
[2016-08-07] MEDS: Insulin DETEMIR 100 UNIT/ML X5UNITS SQ SCH ×2 (09:43→20:46)
--- NOTE | 2016-08-07 13:08 | Internal Med Progress Note ---
Date of Encounter: 08/07/16 Time of Encounter: 09:00 - Assessment and plan (1) Sepsis Current Visit: Yes Status: Acute Assessment and plan: Resolved. Chest x-ray shows stable basilar atelectasis/infiltrate unchanged from the prior x-ray. We will continue iv ciprofloxacin. Qualifiers: Sepsis type: sepsis due to unspecified organism Qualified Code(s): A41.9 - Sepsis, unspecified organism (2) Acute kidney injury Current Visit: Yes Status: Acute Assessment and plan: Improved, cont IVF rate at 90ml/hr. Avoid nephrotoxic agents. We will stop Lasix. Monitor I&O and renal functions. (3) UTI (urinary tract infection) Current Visit: Yes Status: Acute Assessment and plan: Continue antibiotic treatment. Qualifiers: Urinary tract infection type: site unspecified Hematuria presence: without hematuria Qualified Code(s): N39.0 - Urinary tract infection, site not specified (4) Wheezing without diagnosis of asthma Current Visit: Yes Status: Acute Assessment and plan: On po steroids, O2 supplementation. Lungs sound clear today. Will taper down steroid (5) Coronary artery disease Current Visit: Yes Status: Chronic Assessment and plan: No chest pain. On aspirin, Plavix, beta bry and statin. Qualifiers: Coronary Disease-Associated Artery/Lesion type: [place] artery [place] vs. transplanted heart: [place] heart Associated angina: without angina Qualified Code(s): I25.10 - Atherosclerotic heart disease of [place] coronary artery without angina pectoris (6) Depression Current Visit: Yes Status: Chronic Assessment and plan: Continue Paxil Qualifiers: Depression Type: unspecified Qualified Code(s): F32.9 - Major depressive disorder, single episode, unspecified (7) Diabetes mellitus Current Visit: Yes Status: Chronic Assessment and plan: Placed patient back on insulin regimen. Glu is stable now Qualifiers: Diabetes mellitus type: type 2 Diabetes mellitus complication status: with unspecified complications Diabetes mellitus emt intermediate insulin use: with emt intermediate use Qualified Code(s): E11.8 - Type 2 diabetes mellitus with unspecified complications; Z79.4 - terminal worker (current) use of insulin (8) Essential hypertension Current Visit: Yes Status: Chronic Assessment and plan: Controlled. Continue current medication regimen. Sometimes BP is high, place hydralazine 10mg iv prn. (9) Hyperlipidemia Current Visit: Yes Status: Chronic Assessment and plan: Continue atorvastatin Qualifiers: Hyperlipidemia type: unspecified Qualified Code(s): E78.5 - Hyperlipidemia , unspecified (10) Osteoarthritis Current Visit: Yes Status: Chronic Assessment and plan: Chronic. Supportive care. Qualifiers: Osteoarthritis location: unspecified site Osteoarthritis type: primary Qualified Code(s): M19.91 - Primary osteoarthritis, unspecified site (11) DVT prophylaxis Current Visit: Yes Status: Acute Assessment and plan: Heparin subcutaneously - Time Spent With Patient 25 - 35 minutes - Subjective Interval history: Patient is a 81-year-old female admitted for altered mental status and UTI. Past medical history is significant for CAD, dementia, diabetes, hyperlipidemia , hypertension, kidney stone. Patient was seen and examined today. She is sleepy but awake, alert sometimes. She has no fever, no nausea, no vomiting, no abdominal pain. Will continue antibiotic. renal function get to normal. We will continue IV fluid, and follow up her renal function. WBC also get down. Plan is to D/C pt to ECF for further management. - Constitutional Vitals: Temp Pulse Resp BP Pulse Ox 97.8 F 64 16 164/77 99 08/07/16 07:13 08/07/16 07:13 08/07/16 11:32 08/07/16 07:13 08/07/16 11:32 General appearance: Present: A&O X 1, mild distress. Absent: answers questions appropriately - Head Head exam: Present: atraumatic, normocephalic - Eye Eye exam: Present: PERRL, conjuntiva pink, sclera anicteric Pupils: Present: PERRL - Neck Neck exam general surgery: Present: supple, trachea midline. Absent: lymphadenopathy - Respiratory Respiratory exam: Present: CTAB. Absent: accessory muscle use, rales, rhonchi, wheezes - Cardiovascular Cardiovascular exam: Present: RRR, +S1, +S2. Absent: diastolic murmur, gallop, rubs, systolic murmur - GI/Abdominal GI/Abdominal exam: Present: normal bowel sounds, soft, no peritoneal signs. Absent: distended, tenderness - Extremities Exam Extremities exam: Present: warm, radial pulses palpable and symetrical. Absent : calf tenderness, cyanotic, pedal edema - Neurological Exam Neurological exam: Present: CN II-XII intact, no focal deficits. Absent: pronater drift, facial droop, speech deficit - Skin Skin exam: Present: dry, intact Internal Medicine: Result - Labs CBC & Chem 7: 08/07/16 03:59 08/07/16 03:59 Labs: Short CBC 08/07/16 Range/Units 03:59 WBC 11.0 (4.3-11.1) K/mcL Hgb 9.3 L (11.5-15.4) g/dL Hct 30.0 L (35.3-44.9) % Plt Count 206 (140-400) K/mcL Neutrophils # 8.3 (1.6-8.9) K/mcL BMP 08/07/16 03:59 Sodium 144 Potassium 4.4 Chloride 115 H Carbon Dioxide 20 BUN 35 H Creatinine 1.00 Glucose 128 H Calcium 8.1 L - ABG Interpretation ABG results: PT/INR, D-dimer PT 12.3 Seconds (9.4-12.1) H 08/01/16 12:23 Consult Discharge Plan - Plan Referrals: Miguel Moya Jr, MD [Primary Care Provider] -
[2016-08-07] MEDS: Melatonin 3 MG TABLET PO SCH (20:12)
[2016-08-08] MEDS: Acetaminophen 325 MG TABLET PO PRN ×2 (00:29→20:10)
[2016-08-08] MEDS ORDERED: Nitroglycerin 0.4 MG TAB.SUBL SL ONE (02:20)
[2016-08-08 02:43] LABS: Basophils % 0.4 %; Eosinophils # 0.3 K/mcL (0.0-0.6); Eosinophils % 2.2 %; Hematocrit 30.6 % (35.3-44.9); Hemoglobin 9.9 g/dL (11.5-15.4); Immature Granulocytes % 2.7 % (0-4); Immature Platelets 1.5 % (1.1-6.1); Lymphocytes # 2.4 K/mcL (0.6-4.6); Lymphocytes % 20.9 %; Mean Corpuscular HGB Conc 32.4 g/dL (31.6-35.5); Mean Corpuscular Hemoglobin 28.8 pg (28.0-33.3); Mean Platelet Volume 9.5 fL (9.4-12.4); Monocytes # 1.3 K/mcL (0.0-1.3); Monocytes % 11.2 %; Neutrophils # 7.1 K/mcL (1.6-8.9); Platelet Count 261 K/mcL (140-400); Red Blood Count 3.44 M/mcL (3.82-4.97); Red Cell Distribution Width 14.2 % (11.5-14.5); Segmented Neutrophils % 62.6 %
[2016-08-08 02:55] LABS: BUN/Creatinine Ratio 33 (6-26); Blood Urea Nitrogen 29 mg/dL (7-20); Carbon Dioxide 23 mEq/L (19-29); Chloride 113 mEq/L (98-109); Glucose 101 mg/dL (70-99); Osmolality,Calculated 300 (280-300); Potassium 3.7 mEq/L (3.5-4.5); Sodium 142 mEq/L (136-145); eGFR For African Americans > 60 (> 60); eGFR For Non-African Americans > 60 (> 60)
[2016-08-08] MEDS: Ipratropium/Albuterol Neb 3 ML IH SCH ×6 (03:54→23:53)
[2016-08-08] MEDS: *HR* Heparin 5,000 UNIT/ML VIAL SQ SCH ×2 (05:24→18:46)
[2016-08-08] MEDS: Insulin LISPRO 300 UNITS/3 ML VIAL SQ SCH ×4 (07:50→22:32)
[2016-08-08] MEDS: Insulin DETEMIR 100 UNIT/ML X5UNITS SQ SCH (07:51)
[2016-08-08] MEDS: Thiamine (B-1) 100 MG TABLET PO SCH (09:15)
[2016-08-08] MEDS: Metoprolol XL (24 HR) Succ 25 MG TAB.ER.24H PO SCH (09:15)
[2016-08-08] MEDS: Folic Acid 1 MG TABLET PO SCH (09:15)
[2016-08-08] MEDS: *HR* Dextrose 50 % in Water (Syg) 50 ML SYRINGE IVP PRN (09:16)
[2016-08-08] MEDS: predniSONE 20 MG TABLET PO SCH (09:16)
[2016-08-08] MEDS: Aspirin Enteric Coated 81 MG Tablet PO SCH (09:16)
[2016-08-08] MEDS: Vitamin B Complex/Vit C/Vit E 1 EACH TABLET PO SCH (09:16)
--- NOTE | 2016-08-08 09:59 | Electrocardiograph Report ---
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
--- NOTE | 2016-08-08 11:21 | Internal Med Progress Note ---
Date of Encounter: 08/08/16 Time of Encounter: 09:00 - Assessment and plan (1) Sepsis Current Visit: Yes Status: Acute Assessment and plan: Resolved. Chest x-ray shows stable basilar atelectasis/infiltrate unchanged from the prior x-ray. D/C ciprofloxacin. Qualifiers: Sepsis type: sepsis due to unspecified organism Qualified Code(s): A41.9 - Sepsis, unspecified organism (2) Acute kidney injury Current Visit: Yes Status: Acute Assessment and plan: Improved, DC IV fluid. Avoid nephrotoxic agents. We will stop Lasix. Monitor I&O and renal functions. (3) UTI (urinary tract infection) Current Visit: Yes Status: Acute Assessment and plan: Has finished antibiotic treatment. Urine culture negative Qualifiers: Urinary tract infection type: site unspecified Hematuria presence: without hematuria Qualified Code(s): N39.0 - Urinary tract infection, site not specified (4) Wheezing without diagnosis of asthma Current Visit: Yes Status: Acute Assessment and plan: On po steroids, O2 supplementation. Lungs sound clear today. Will taper down steroid. Patient has a mild cough, and Robitussin syrup. (5) Coronary artery disease Current Visit: Yes Status: Chronic Assessment and plan: No chest pain. On aspirin, Plavix, beta bry and statin. Qualifiers: Coronary Disease-Associated Artery/Lesion type: [place] artery [place] vs. transplanted heart: [place] heart Associated angina: without angina Qualified Code(s): I25.10 - Atherosclerotic heart disease of [place] coronary artery without angina pectoris (6) Depression Current Visit: Yes Status: Chronic Assessment and plan: Continue Paxil Qualifiers: Depression Type: unspecified Qualified Code(s): F32.9 - Major depressive disorder, single episode, unspecified (7) Diabetes mellitus Current Visit: Yes Status: Chronic Assessment and plan: Adjustment in insulin based on glucose level. Qualifiers: Diabetes mellitus type: type 2 Diabetes mellitus complication status: with unspecified complications Diabetes mellitus correction insulin use: with intermodal truck driver use Qualified Code(s): E11.8 - Type 2 diabetes mellitus with unspecified complications; Z79.4 - intermodal truck driver (current) use of insulin (8) Essential hypertension Current Visit: Yes Status: Chronic Assessment and plan: Controlled. Continue current medication regimen. Sometimes BP is high, place hydralazine 10mg iv prn. (9) Hyperlipidemia Current Visit: Yes Status: Chronic Assessment and plan: Continue atorvastatin Qualifiers: Hyperlipidemia type: unspecified Qualified Code(s): E78.5 - Hyperlipidemia , unspecified (10) Osteoarthritis Current Visit: Yes Status: Chronic Assessment and plan: Chronic. Supportive care. Qualifiers: Osteoarthritis location: unspecified site Osteoarthritis type: primary Qualified Code(s): M19.91 - Primary osteoarthritis, unspecified site (11) DVT prophylaxis Current Visit: Yes Status: Acute Assessment and plan: Heparin subcutaneously - Time Spent With Patient 25 - 35 minutes - Subjective Interval history: Patient is a 81-year-old female admitted for altered mental status and UTI. Past medical history is significant for CAD, dementia, diabetes, hyperlipidemia , hypertension, kidney stone. Patient was seen and examined today. She is more awake and alert today. She has no fever, no nausea, no vomiting, no abdominal pain. Will discontinue antibiotic. renal function get to normal. With DC iv fluid, encourage her eating and drinking. WBC also get down. Plan is to D/C pt to ECF for further management. Patient develop hypoglycemia this morning. Possibly due to that the steroid is tapering down. Will DC basal insulin, change at bedtime insulin to low correction dose. Closely follow up glucose level. - Constitutional Vitals: Temp Pulse Resp BP Pulse Ox 97.4 F L 72 18 112/49 95 08/08/16 07:14 08/08/16 07:14 08/08/16 07:14 08/08/16 07:14 08/08/16 07:14 General appearance: Present: A&O X 1, mild distress. Absent: answers questions appropriately - Head Head exam: Present: atraumatic, normocephalic - Eye Eye exam: Present: PERRL, conjuntiva pink, sclera anicteric Pupils: Present: PERRL - Neck Neck exam general surgery: Present: supple, trachea midline. Absent: lymphadenopathy - Respiratory Respiratory exam: Present: CTAB. Absent: accessory muscle use, rales, rhonchi, wheezes - Cardiovascular Cardiovascular exam: Present: RRR, +S1, +S2. Absent: diastolic murmur, gallop, rubs, systolic murmur - GI/Abdominal GI/Abdominal exam: Present: normal bowel sounds, soft, no peritoneal signs. Absent: distended, tenderness - Extremities Exam Extremities exam: Present: warm, radial pulses palpable and symetrical. Absent : calf tenderness, cyanotic, pedal edema - Neurological Exam Neurological exam: Present: CN II-XII intact, oriented X3, no focal deficits. Absent: pronater drift, facial droop, speech deficit - Skin Skin exam: Present: dry, intact Internal Medicine: Result - Labs CBC & Chem 7: 08/08/16 02:35 08/08/16 02:35 Labs: Short CBC 08/08/16 Range/Units 02:35 WBC 11.3 H (4.3-11.1) K/mcL Hgb 9.9 L (11.5-15.4) g/dL Hct 30.6 L (35.3-44.9) % Plt Count 261 (140-400) K/mcL Neutrophils # 7.1 (1.6-8.9) K/mcL BMP 08/08/16 02:35 Sodium 142 Potassium 3.7 Chloride 113 H Carbon Dioxide 23 BUN 29 H Creatinine 0.89 Glucose 101 H Calcium 8.0 L Cardiac Enzymes 08/08/16 Range/Units 02:35 Troponin I 0.03 (0-0.03) ng/mL - ABG Interpretation ABG results: PT/INR, D-dimer PT 12.3 Seconds (9.4-12.1) H 08/01/16 12:23 Consult Discharge Plan - Plan Referrals: Miguel Moya Jr, MD [Primary Care Provider] -
[2016-08-08] MEDS: GuaiFENesin Liq 200 MG/10 ML UDC PO SCH ×2 (11:46→18:46)
[2016-08-08] MEDS: Melatonin 3 MG TABLET PO SCH (20:11)
[2016-08-09] MEDS: GuaiFENesin Liq 200 MG/10 ML UDC PO SCH ×4 (00:29→17:59)
[2016-08-09] MEDS: Ipratropium/Albuterol Neb 3 ML IH SCH ×6 (03:36→23:01)
[2016-08-09] MEDS: *HR* Heparin 5,000 UNIT/ML VIAL SQ SCH ×2 (05:55→17:58)
[2016-08-09] MEDS: Insulin LISPRO 300 UNITS/3 ML VIAL SQ SCH ×3 (08:22→21:58)
[2016-08-09] MEDS: Acetaminophen 325 MG TABLET PO PRN ×2 (08:23→22:07)
[2016-08-09] MEDS: Vitamin B Complex/Vit C/Vit E 1 EACH TABLET PO SCH (08:23)
[2016-08-09] MEDS: Metoprolol XL (24 HR) Succ 25 MG TAB.ER.24H PO SCH (08:23)
[2016-08-09] MEDS: Aspirin Enteric Coated 81 MG Tablet PO SCH (08:24)
[2016-08-09] MEDS: Thiamine (B-1) 100 MG TABLET PO SCH (08:24)
[2016-08-09] MEDS: predniSONE 20 MG TABLET PO SCH (08:24)
[2016-08-09] MEDS: Folic Acid 1 MG TABLET PO SCH (08:25)
[2016-08-09 10:42] LABS: Basophils % 0.2 %; Eosinophils # 0.6 K/mcL (0.0-0.6); Eosinophils % 4.8 %; Hematocrit 30.8 % (35.3-44.9); Hemoglobin 9.9 g/dL (11.5-15.4); Immature Granulocytes % 3.8 % (0-4); Lymphocytes # 2.2 K/mcL (0.6-4.6); Lymphocytes % 17.3 %; Mean Corpuscular HGB Conc 32.1 g/dL (31.6-35.5); Mean Corpuscular Hemoglobin 28.3 pg (28.0-33.3); Mean Platelet Volume 9.4 fL (9.4-12.4); Monocytes # 1.1 K/mcL (0.0-1.3); Monocytes % 8.5 %; Neutrophils # 8.3 K/mcL (1.6-8.9); Nucleated Red Blood Cells 0.2 /100 WBC (0); Platelet Count 295 K/mcL (140-400); Red Cell Distribution Width 14.3 % (11.5-14.5); Segmented Neutrophils % 65.4 %
--- NOTE | 2016-08-09 10:47 | Internal Med Progress Note ---
Date of Encounter: 08/09/16 Time of Encounter: 08:00 - Assessment and plan (1) Sepsis Current Visit: Yes Status: Acute Assessment and plan: Resolved. Chest x-ray shows stable basilar atelectasis/infiltrate unchanged from the prior x-ray. D/C ciprofloxacin. Qualifiers: Sepsis type: sepsis due to unspecified organism Qualified Code(s): A41.9 - Sepsis, unspecified organism (2) Acute kidney injury Current Visit: Yes Status: Acute Assessment and plan: Improved, DC IV fluid. Avoid nephrotoxic agents. We will stop Lasix. Monitor I&O and renal functions. (3) UTI (urinary tract infection) Current Visit: Yes Status: Acute Assessment and plan: Has finished antibiotic treatment. Urine culture negative Qualifiers: Urinary tract infection type: site unspecified Hematuria presence: without hematuria Qualified Code(s): N39.0 - Urinary tract infection, site not specified (4) Wheezing without diagnosis of asthma Current Visit: Yes Status: Acute Assessment and plan: On po steroids, O2 supplementation. Lungs sound clear today. Will taper down steroid. Patient has a mild cough, and Robitussin syrup. Patient is on prednisone 10 mg daily at home for a long time per patient's daughter, for arthritis. We will continue the dose on discharge. (5) Coronary artery disease Current Visit: Yes Status: Chronic Assessment and plan: No chest pain. On aspirin, Plavix, beta bry and statin. Qualifiers: Coronary Disease-Associated Artery/Lesion type: [place] artery [place] vs. transplanted heart: [place] heart Associated angina: without angina Qualified Code(s): I25.10 - Atherosclerotic heart disease of [place] coronary artery without angina pectoris (6) Depression Current Visit: Yes Status: Chronic Assessment and plan: Continue Paxil Qualifiers: Depression Type: unspecified Qualified Code(s): F32.9 - Major depressive disorder, single episode, unspecified (7) Diabetes mellitus Current Visit: Yes Status: Chronic Assessment and plan: Adjustment in insulin based on glucose level. Qualifiers: Diabetes mellitus type: type 2 Diabetes mellitus complication status: with unspecified complications Diabetes mellitus exterminator insulin use: with exterminator use Qualified Code(s): E11.8 - Type 2 diabetes mellitus with unspecified complications; Z79.4 - half-way (current) use of insulin (8) Essential hypertension Current Visit: Yes Status: Chronic Assessment and plan: Poorly Controlled. Continue current medication regimen. Add amlodipine 5 mg by mouth daily. Continue hydralazine 10mg iv prn. (9) Hyperlipidemia Current Visit: Yes Status: Chronic Assessment and plan: Continue atorvastatin Qualifiers: Hyperlipidemia type: unspecified Qualified Code(s): E78.5 - Hyperlipidemia , unspecified (10) Osteoarthritis Current Visit: Yes Status: Chronic Assessment and plan: Chronic. Supportive care. Qualifiers: Osteoarthritis location: unspecified site Osteoarthritis type: primary Qualified Code(s): M19.91 - Primary osteoarthritis, unspecified site (11) DVT prophylaxis Current Visit: Yes Status: Acute Assessment and plan: Heparin subcutaneously - Time Spent With Patient 25 - 35 minutes - Subjective Interval history: Patient is a 81-year-old female admitted for altered mental status and UTI. Past medical history is significant for CAD, dementia, diabetes, hyperlipidemia , hypertension, kidney stone. Patient was seen and examined today. She is more awake and alert today. She has no fever, no nausea, no vomiting, no abdominal pain. Plan is to D/C pt to ECF for further management. Per family, patient is on chronic steroid use, will keep her prednisone 10 mg by mouth daily. - Constitutional Vitals: Temp Pulse Resp BP Pulse Ox 97.7 F 80 17 188/80 93 L 08/09/16 07:44 08/09/16 07:44 08/09/16 07:44 08/09/16 07:44 08/09/16 07:44 General appearance: Present: A&O X 1, mild distress. Absent: answers questions appropriately - Head Head exam: Present: atraumatic, normocephalic - Eye Eye exam: Present: PERRL, conjuntiva pink, sclera anicteric Pupils: Present: PERRL - Neck Neck exam general surgery: Present: supple, trachea midline. Absent: lymphadenopathy - Respiratory Respiratory exam: Present: CTAB. Absent: accessory muscle use, rales, rhonchi, wheezes - Cardiovascular Cardiovascular exam: Present: RRR, +S1, +S2. Absent: diastolic murmur, gallop, rubs, systolic murmur - GI/Abdominal GI/Abdominal exam: Present: normal bowel sounds, soft, no peritoneal signs. Absent: distended, tenderness - Extremities Exam Extremities exam: Present: warm, radial pulses palpable and symetrical. Absent : calf tenderness, cyanotic, pedal edema - Neurological Exam Neurological exam: Present: CN II-XII intact, oriented X3, no focal deficits. Absent: pronater drift, facial droop, speech deficit - Skin Skin exam: Present: dry, intact Internal Medicine: Result - Labs CBC & Chem 7: 08/09/16 10:16 08/08/16 02:35 Labs: Short CBC 08/09/16 Range/Units 10:16 WBC 12.7 H (4.3-11.1) K/mcL Hgb 9.9 L (11.5-15.4) g/dL Hct 30.8 L (35.3-44.9) % Plt Count 295 (140-400) K/mcL Neutrophils # 8.3 (1.6-8.9) K/mcL - ABG Interpretation ABG results: PT/INR, D-dimer PT 12.3 Seconds (9.4-12.1) H 08/01/16 12:23 Consult Discharge Plan - Plan Referrals: Miguel Moya Jr, MD [Primary Care Provider] -
[2016-08-09] MEDS: amLODIPine 5 MG TABLET PO SCH (12:14)
[2016-08-09 12:18] LABS: BUN/Creatinine Ratio 24 (6-26); Blood Urea Nitrogen 24 mg/dL (7-20); Calcium 8.2 mg/dL (8.6-10.8); Carbon Dioxide 20 mEq/L (19-29); Chloride 113 mEq/L (98-109); Glucose 241 mg/dL (70-99); Osmolality,Calculated 308 (280-300); Potassium 4.1 mEq/L (3.5-4.5); Sodium 143 mEq/L (136-145); eGFR For African Americans > 60 (> 60); eGFR For Non-African Americans 54 (> 60)
[2016-08-09 12:24] LABS: Folate 39.6 ng/mL (7.0-31.4)
[2016-08-09] MEDS: Insulin DETEMIR 100 UNIT/ML X5UNITS SQ SCH (21:59)
[2016-08-09] MEDS: Melatonin 3 MG TABLET PO SCH (22:07)
[2016-08-09] MEDS ORDERED: *HR* OxyCODONE Immed Rel 5 MG TABLET PO ONE ×2 (23:52→23:53)
[2016-08-10] MEDS: GuaiFENesin Liq 200 MG/10 ML UDC PO SCH ×4 (00:21→17:39)
[2016-08-10] MEDS: Insulin LISPRO 300 UNITS/3 ML VIAL SQ SCH ×5 (00:37→22:34)
[2016-08-10] MEDS: 0.9 % Sodium Chloride 1,000 ML IVC SCH (00:38)
[2016-08-10] MEDS: Ipratropium/Albuterol Neb 3 ML IH SCH ×6 (04:07→23:27)
[2016-08-10 05:11] LABS: Basophils # 0.1 K/mcL (0.0-0.2); Basophils % 0.4 %; Eosinophils # 0.7 K/mcL (0.0-0.6); Hematocrit 32.5 % (35.3-44.9); Hemoglobin 10.6 g/dL (11.5-15.4); Immature Granulocytes % 3.8 % (0-4); Lymphocytes # 5.3 K/mcL (0.6-4.6); Lymphocytes % 32.9 %; Mean Corpuscular HGB Conc 32.6 g/dL (31.6-35.5); Mean Corpuscular Hemoglobin 28.8 pg (28.0-33.3); Mean Corpuscular Volume 88.3 fL (83.0-100.0); Mean Platelet Volume 9.8 fL (9.4-12.4); Monocytes # 1.7 K/mcL (0.0-1.3); Monocytes % 10.5 %; Neutrophils # 7.8 K/mcL (1.6-8.9); Nucleated Red Blood Cells 0.2 /100 WBC (0); Platelet Count 329 K/mcL (140-400); Red Blood Count 3.68 M/mcL (3.82-4.97); Red Cell Distribution Width 14.7 % (11.5-14.5); Segmented Neutrophils % 48.4 %
[2016-08-10 05:25] LABS: Alanine Aminotransferase 34 Units/L (0-55); Albumin 2.7 g/dL (3.5-5.0); Alkaline Phosphatase 90 Units/L (38-126); Aspartate Amino Transferase 39 Units/L (5-34); BUN/Creatinine Ratio 30 (6-26); Bilirubin,Total 0.9 mg/dL (0.2-1.2); Blood Urea Nitrogen 27 mg/dL (7-20); Calcium 8.4 mg/dL (8.6-10.8); Carbon Dioxide 24 mEq/L (19-29); Chloride 110 mEq/L (98-109); Globulin 2.8 g/dL (2.4-3.5); Glucose 156 mg/dL (70-99); Magnesium 1.7 mg/dL (1.6-2.6); Osmolality,Calculated 304 (280-300); Potassium 3.9 mEq/L (3.5-4.5); Sodium 143 mEq/L (136-145); Total Protein 5.5 g/dL (6.0-8.3); eGFR For African Americans > 60 (> 60); eGFR For Non-African Americans 60 (> 60)
[2016-08-10] MEDS: *HR* Heparin 5,000 UNIT/ML VIAL SQ SCH ×2 (06:01→17:39)
[2016-08-10] MEDS ORDERED: Levofloxacin 500 MG/100 ML 500 MG/100 ML BAG IVPB ONE (09:00)
[2016-08-10] MEDS: Vitamin B Complex/Vit C/Vit E 1 EACH TABLET PO SCH (09:12)
[2016-08-10] MEDS: Aspirin Enteric Coated 81 MG Tablet PO SCH (09:13)
[2016-08-10] MEDS: Folic Acid 1 MG TABLET PO SCH (09:13)
[2016-08-10] MEDS: Thiamine (B-1) 100 MG TABLET PO SCH (09:13)
[2016-08-10] MEDS: amLODIPine 5 MG TABLET PO SCH (09:13)
[2016-08-10] MEDS: Metoprolol XL (24 HR) Succ 25 MG TAB.ER.24H PO SCH (09:13)
[2016-08-10] MEDS: predniSONE 10 MG TABLET PO SCH (09:13)
--- NOTE | 2016-08-10 10:36 | Internal Med Progress Note ---
Date of Encounter: 08/10/16 Time of Encounter: 10:00 - Assessment and plan (1) Sepsis Current Visit: Yes Status: Acute Assessment and plan: Resolved. Chest x-ray shows stable basilar atelectasis/infiltrate unchanged from the prior x-ray. Qualifiers: Sepsis type: sepsis due to unspecified organism Qualified Code(s): A41.9 - Sepsis, unspecified organism (2) Acute kidney injury Current Visit: Yes Status: Acute Assessment and plan: Improved, DC IV fluid. Avoid nephrotoxic agents. We will stop Lasix. Monitor I&O and renal functions. (3) UTI (urinary tract infection) Current Visit: Yes Status: Acute Assessment and plan: Has finished antibiotic treatment. Urine culture negative. However, pt has increased WBC again, will restart levaquin treatment. Qualifiers: Urinary tract infection type: site unspecified Hematuria presence: without hematuria Qualified Code(s): N39.0 - Urinary tract infection, site not specified (4) Wheezing without diagnosis of asthma Current Visit: Yes Status: Acute Assessment and plan: On po steroids, O2 supplementation. Lungs sound clear today. Will taper down steroid. Patient has a mild cough, and Robitussin syrup. Patient is on prednisone 10 mg daily at home for a long time per patient's daughter, for arthritis. We will continue the dose on discharge. (5) Coronary artery disease Current Visit: Yes Status: Chronic Assessment and plan: No chest pain. On aspirin, Plavix, beta bry and statin. Qualifiers: Coronary Disease-Associated Artery/Lesion type: [place] artery [place] vs. transplanted heart: [place] heart Associated angina: without angina Qualified Code(s): I25.10 - Atherosclerotic heart disease of [place] coronary artery without angina pectoris (6) Depression Current Visit: Yes Status: Chronic Assessment and plan: Continue Paxil Qualifiers: Depression Type: unspecified Qualified Code(s): F32.9 - Major depressive disorder, single episode, unspecified (7) Diabetes mellitus Current Visit: Yes Status: Chronic Assessment and plan: Adjustment in insulin based on glucose level. Qualifiers: Diabetes mellitus type: type 2 Diabetes mellitus complication status: with unspecified complications Diabetes mellitus buttermaker insulin use: with custodial use Qualified Code(s): E11.8 - Type 2 diabetes mellitus with unspecified complications; Z79.4 - rn long term care (current) use of insulin (8) Essential hypertension Current Visit: Yes Status: Chronic Assessment and plan: Poorly Controlled. Continue current medication regimen. Add amlodipine 5 mg by mouth daily. Continue hydralazine 10mg iv prn. (9) Hyperlipidemia Current Visit: Yes Status: Chronic Assessment and plan: Continue atorvastatin Qualifiers: Hyperlipidemia type: unspecified Qualified Code(s): E78.5 - Hyperlipidemia , unspecified (10) Osteoarthritis Current Visit: Yes Status: Chronic Assessment and plan: Chronic. Supportive care. Patient is on chronic prednisone use at home. Qualifiers: Osteoarthritis location: unspecified site Osteoarthritis type: primary Qualified Code(s): M19.91 - Primary osteoarthritis, unspecified site (11) DVT prophylaxis Current Visit: Yes Status: Acute Assessment and plan: Heparin subcutaneously - Time Spent With Patient 25 - 35 minutes - Subjective Interval history: Patient is a 81-year-old female admitted for altered mental status and UTI. Past medical history is significant for CAD, dementia, diabetes, hyperlipidemia , hypertension, kidney stone. Patient was seen and examined today. She is more awake and alert today. She has low fever x episode last night, no nausea, no vomiting, no abdominal pain. White count is also getting up. Will restart Levaquin. Follow-up white count level. - Constitutional Vitals: Temp Pulse Resp BP Pulse Ox 97.7 F 67 16 144/65 93 L 08/10/16 07:45 08/10/16 07:45 08/10/16 08:20 08/10/16 08:20 08/10/16 08:20 General appearance: Present: A&O X 1, mild distress. Absent: answers questions appropriately - Head Head exam: Present: atraumatic, normocephalic - Eye Eye exam: Present: PERRL, conjuntiva pink, sclera anicteric Pupils: Present: PERRL - Neck Neck exam general surgery: Present: supple, trachea midline. Absent: lymphadenopathy - Respiratory Respiratory exam: Present: CTAB. Absent: accessory muscle use, rales, rhonchi, wheezes - Cardiovascular Cardiovascular exam: Present: RRR, +S1, +S2. Absent: diastolic murmur, gallop, rubs, systolic murmur - GI/Abdominal GI/Abdominal exam: Present: normal bowel sounds, soft, no peritoneal signs. Absent: distended, tenderness - Extremities Exam Extremities exam: Present: warm, radial pulses palpable and symetrical. Absent : calf tenderness, cyanotic, pedal edema - Neurological Exam Neurological exam: Present: CN II-XII intact, oriented X3, no focal deficits. Absent: pronater drift, facial droop, speech deficit - Skin Skin exam: Present: dry, intact Internal Medicine: Result - Labs CBC & Chem 7: 08/10/16 04:47 08/10/16 04:47 Labs: Short CBC 08/09/16 08/10/16 Range/Units 10:16 04:47 WBC 12.7 H 16.1 H (4.3-11.1) K/mcL Hgb 9.9 L 10.6 L (11.5-15.4) g/dL Hct 30.8 L 32.5 L (35.3-44.9) % Plt Count 295 329 (140-400) K/mcL Neutrophils # 8.3 7.8 (1.6-8.9) K/mcL BMP 08/09/16 08/10/16 10:16 04:47 Sodium 143 143 Potassium 4.1 3.9 Chloride 113 H 110 H Carbon Dioxide 20 24 BUN 24 H 27 H Creatinine 0.98 0.90 Glucose 241 H 156 H Calcium 8.2 L 8.4 L Liver Function 08/10/16 Range/Units 04:47 Total Bilirubin 0.9 (0.2-1.2) mg/dL AST 39 H (5-34) Units/L ALT 34 (0-55) Units/L Alkaline Phosphatase 90 (38-126) Units/L Albumin 2.7 L (3.5-5.0) g/dL - ABG Interpretation ABG results: PT/INR, D-dimer PT 12.3 Seconds (9.4-12.1) H 08/01/16 12:23 Consult Discharge Plan - Plan Referrals: Miguel Moya Jr, MD [Primary Care Provider] -
[2016-08-10] MEDS ORDERED: *HR* LORazepam 2 MG/ML VIAL IVP ONE (21:20)
[2016-08-10] MEDS: Melatonin 3 MG TABLET PO SCH ×2 (21:31→22:34)
[2016-08-10] MEDS: Insulin DETEMIR 100 UNIT/ML X5UNITS SQ SCH (22:34)
[2016-08-11] MEDS: GuaiFENesin Liq 200 MG/10 ML UDC PO SCH ×5 (00:23→23:24)
[2016-08-11] MEDS: Ipratropium/Albuterol Neb 3 ML IH SCH ×5 (04:35→19:40)
[2016-08-11 04:49] LABS: Basophils % 0.2 %; Eosinophils # 0.5 K/mcL (0.0-0.6); Eosinophils % 3.8 %; Hematocrit 31.8 % (35.3-44.9); Hemoglobin 10.2 g/dL (11.5-15.4); Immature Granulocytes % 2.7 % (0-4); Lymphocytes # 3.9 K/mcL (0.6-4.6); Lymphocytes % 28.6 %; Mean Corpuscular HGB Conc 32.1 g/dL (31.6-35.5); Mean Corpuscular Hemoglobin 28.6 pg (28.0-33.3); Mean Corpuscular Volume 89.1 fL (83.0-100.0); Mean Platelet Volume 9.5 fL (9.4-12.4); Monocytes # 1.5 K/mcL (0.0-1.3); Monocytes % 11.3 %; Neutrophils # 7.2 K/mcL (1.6-8.9); Platelet Count 320 K/mcL (140-400); Red Blood Count 3.57 M/mcL (3.82-4.97); Red Cell Distribution Width 14.9 % (11.5-14.5); Segmented Neutrophils % 53.4 %
[2016-08-11 05:05] LABS: BUN/Creatinine Ratio 24 (6-26); Blood Urea Nitrogen 22 mg/dL (7-20); Calcium 8.1 mg/dL (8.6-10.8); Carbon Dioxide 27 mEq/L (19-29); Chloride 109 mEq/L (98-109); Glucose 128 mg/dL (70-99); Osmolality,Calculated 303 (280-300); Potassium 3.6 mEq/L (3.5-4.5); Sodium 144 mEq/L (136-145); eGFR For African Americans > 60 (> 60); eGFR For Non-African Americans 59 (> 60)
[2016-08-11] MEDS: *HR* Heparin 5,000 UNIT/ML VIAL SQ SCH ×2 (05:54→18:45)
[2016-08-11] MEDS: Acetaminophen 325 MG TABLET PO PRN ×2 (05:54→19:48)
[2016-08-11] MEDS: predniSONE 10 MG TABLET PO SCH (08:11)
[2016-08-11] MEDS: Vitamin B Complex/Vit C/Vit E 1 EACH TABLET PO SCH (08:11)
[2016-08-11] MEDS: Folic Acid 1 MG TABLET PO SCH (08:12)
[2016-08-11] MEDS: amLODIPine 5 MG TABLET PO SCH (08:12)
[2016-08-11] MEDS: Aspirin Enteric Coated 81 MG Tablet PO SCH (08:12)
[2016-08-11] MEDS: Metoprolol XL (24 HR) Succ 25 MG TAB.ER.24H PO SCH (08:12)
[2016-08-11] MEDS: LEVOFLOXACIN 250 MG/50 ML IVPB SCH (08:13)
[2016-08-11] MEDS: Thiamine (B-1) 100 MG TABLET PO SCH (08:14)
[2016-08-11] MEDS: Insulin LISPRO 300 UNITS/3 ML VIAL SQ SCH ×3 (08:24→18:46)
--- NOTE | 2016-08-11 14:50 | Internal Med Progress Note ---
Date of Encounter: 08/11/16 Time of Encounter: 10:00 - Assessment and plan (1) Sepsis Current Visit: Yes Status: Acute Assessment and plan: Resolved. Chest x-ray shows stable basilar atelectasis/infiltrate unchanged from the prior x-ray. Qualifiers: Sepsis type: sepsis due to unspecified organism Qualified Code(s): A41.9 - Sepsis, unspecified organism (2) Acute kidney injury Current Visit: Yes Status: Acute Assessment and plan: Improved, DC IV fluid. Avoid nephrotoxic agents. We will stop Lasix. Monitor I&O and renal functions. (3) UTI (urinary tract infection) Current Visit: Yes Status: Acute Assessment and plan: Has finished antibiotic treatment. Urine culture negative. However, pt has increased WBC again, will restart levaquin treatment. Qualifiers: Urinary tract infection type: site unspecified Hematuria presence: without hematuria Qualified Code(s): N39.0 - Urinary tract infection, site not specified (4) Wheezing without diagnosis of asthma Current Visit: Yes Status: Acute Assessment and plan: On po steroids, O2 supplementation. Sometimes still has few wheezing. Will taper down steroid. Patient is on prednisone 10 mg daily at home for a long time per patient's daughter, for arthritis. We will continue the dose on discharge. (5) Coronary artery disease Current Visit: Yes Status: Chronic Assessment and plan: No chest pain. On aspirin, Plavix, beta bry and statin. Qualifiers: Coronary Disease-Associated Artery/Lesion type: [place] artery [place] vs. transplanted heart: [place] heart Associated angina: without angina Qualified Code(s): I25.10 - Atherosclerotic heart disease of [place] coronary artery without angina pectoris (6) Depression Current Visit: Yes Status: Chronic Assessment and plan: Continue Paxil Qualifiers: Depression Type: unspecified Qualified Code(s): F32.9 - Major depressive disorder, single episode, unspecified (7) Diabetes mellitus Current Visit: Yes Status: Chronic Assessment and plan: Adjustment in insulin based on glucose level. 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 Continue current medication regimen. Continue hydralazine 10mg iv prn. (9) Hyperlipidemia Current Visit: Yes Status: Chronic Assessment and plan: Continue atorvastatin Qualifiers: Hyperlipidemia type: unspecified Qualified Code(s): E78.5 - Hyperlipidemia , unspecified (10) Osteoarthritis Current Visit: Yes Status: Chronic Assessment and plan: Chronic. Supportive care. Patient is on chronic prednisone use at home. Qualifiers: Osteoarthritis location: unspecified site Osteoarthritis type: primary Qualified Code(s): M19.91 - Primary osteoarthritis, unspecified site (11) DVT prophylaxis Current Visit: Yes Status: Acute Assessment and plan: Heparin subcutaneously - Time Spent With Patient 25 - 35 minutes - Subjective Interval history: Patient is a 81-year-old female admitted for altered mental status and UTI. Past medical history is significant for CAD, dementia, diabetes, hyperlipidemia , hypertension, kidney stone. Patient was seen and examined today. She is more awake and alert today. She has no fever, no nausea, no vomiting, no abdominal pain. White count is trend down. Will continue Levaquin. Follow-up white count level. - Constitutional Vitals: Temp Pulse Resp BP Pulse Ox 98.5 F 94 16 143/80 93 L 08/11/16 10:00 08/11/16 10:00 08/11/16 10:00 08/11/16 10:00 08/11/16 10:00 General appearance: Present: A&O X 1, mild distress. Absent: answers questions appropriately - Head Head exam: Present: atraumatic, normocephalic - Eye Eye exam: Present: PERRL, conjuntiva pink, sclera anicteric Pupils: Present: PERRL - Neck Neck exam general surgery: Present: supple, trachea midline. Absent: lymphadenopathy - Respiratory Respiratory exam: Present: CTAB, wheezes (Scattered wheezes on left lung). Absent: accessory muscle use, rales, rhonchi - Cardiovascular Cardiovascular exam: Present: RRR, +S1, +S2. Absent: diastolic murmur, gallop, rubs, systolic murmur - GI/Abdominal GI/Abdominal exam: Present: normal bowel sounds, soft, no peritoneal signs. Absent: distended, tenderness - Extremities Exam Extremities exam: Present: warm, radial pulses palpable and symetrical. Absent : calf tenderness, cyanotic, pedal edema - Neurological Exam Neurological exam: Present: CN II-XII intact, oriented X3, no focal deficits. Absent: pronater drift, facial droop, speech deficit - Skin Skin exam: Present: dry, intact Internal Medicine: Result - Labs CBC & Chem 7: 08/11/16 04:31 08/11/16 04:31 Labs: Short CBC 08/11/16 Range/Units 04:31 WBC 13.5 H (4.3-11.1) K/mcL Hgb 10.2 L (11.5-15.4) g/dL Hct 31.8 L (35.3-44.9) % Plt Count 320 (140-400) K/mcL Neutrophils # 7.2 (1.6-8.9) K/mcL BMP 08/11/16 04:31 Sodium 144 Potassium 3.6 Chloride 109 Carbon Dioxide 27 BUN 22 H Creatinine 0.91 Glucose 128 H Calcium 8.1 L - ABG Interpretation ABG results: PT/INR, D-dimer PT 12.3 Seconds (9.4-12.1) H 08/01/16 12:23 Consult Discharge Plan - Plan Referrals: Miguel Moya Jr, MD [Primary Care Provider] -
[2016-08-11] MEDS: Insulin DETEMIR 100 UNIT/ML X5UNITS SQ SCH (20:32)
[2016-08-11] MEDS: Melatonin 3 MG TABLET PO SCH (20:38)
[2016-08-12] MEDS: Ipratropium/Albuterol Neb 3 ML IH SCH ×7 (00:15→23:37)
[2016-08-12] MEDS: *HR* Heparin 5,000 UNIT/ML VIAL SQ SCH ×2 (04:59→18:21)
[2016-08-12] MEDS: GuaiFENesin Liq 200 MG/10 ML UDC PO SCH ×4 (05:01→23:50)
[2016-08-12 05:07] LABS: Basophils % 0.3 %; Eosinophils # 0.8 K/mcL (0.0-0.6); Eosinophils % 5.9 %; Hematocrit 31.3 % (35.3-44.9); Hemoglobin 9.9 g/dL (11.5-15.4); Immature Granulocytes % 2.4 % (0-4); Mean Corpuscular HGB Conc 31.6 g/dL (31.6-35.5); Mean Corpuscular Hemoglobin 28.7 pg (28.0-33.3); Mean Corpuscular Volume 90.7 fL (83.0-100.0); Mean Platelet Volume 9.6 fL (9.4-12.4); Monocytes # 1.5 K/mcL (0.0-1.3); Monocytes % 11.1 %; Neutrophils # 7.2 K/mcL (1.6-8.9); Platelet Count 301 K/mcL (140-400); Red Blood Count 3.45 M/mcL (3.82-4.97); Red Cell Distribution Width 15.4 % (11.5-14.5); Segmented Neutrophils % 51.3 %
[2016-08-12] MEDS: amLODIPine 5 MG TABLET PO SCH (08:25)
[2016-08-12] MEDS: Vitamin B Complex/Vit C/Vit E 1 EACH TABLET PO SCH (08:28)
[2016-08-12] MEDS: predniSONE 10 MG TABLET PO SCH (08:28)
[2016-08-12] MEDS: Thiamine (B-1) 100 MG TABLET PO SCH (08:28)
[2016-08-12] MEDS: Metoprolol XL (24 HR) Succ 25 MG TAB.ER.24H PO SCH (08:28)
[2016-08-12] MEDS: LEVOFLOXACIN 250 MG/50 ML IVPB SCH (08:29)
[2016-08-12] MEDS: Folic Acid 1 MG TABLET PO SCH (08:29)
[2016-08-12] MEDS: Aspirin Enteric Coated 81 MG Tablet PO SCH (08:29)
[2016-08-12] MEDS: Insulin LISPRO 300 UNITS/3 ML VIAL SQ SCH ×4 (08:42→21:28)
--- NOTE | 2016-08-12 11:08 | Internal Med Progress Note ---
Date of Encounter: 08/12/16 Time of Encounter: 08:00 - Assessment and plan (1) Sepsis Current Visit: Yes Status: Acute Assessment and plan: Resolved. Chest x-ray shows stable basilar atelectasis/infiltrate unchanged from the prior x-ray. CT chest shows bronchitis. Qualifiers: Sepsis type: sepsis due to unspecified organism Qualified Code(s): A41.9 - Sepsis, unspecified organism (2) Acute kidney injury Current Visit: Yes Status: Acute Assessment and plan: Improved, DC IV fluid. Avoid nephrotoxic agents. We will stop Lasix. Monitor I&O and renal functions. (3) UTI (urinary tract infection) Current Visit: Yes Status: Acute Assessment and plan: Has finished antibiotic treatment. Urine culture negative. However, pt has increased WBC again, will restart levaquin treatment. Qualifiers: Urinary tract infection type: acute cystitis Hematuria presence: without hematuria Qualified Code(s): N30.00 - Acute cystitis without hematuria (4) Wheezing without diagnosis of asthma Current Visit: Yes Status: Acute Assessment and plan: On po steroids, O2 supplementation. Sometimes still has few wheezing. Will taper down steroid. CT chest to r/o malignancy, result unremarkable. Patient is on prednisone 10 mg daily at home for a long time per patient's daughter, for arthritis. We will continue the dose on discharge. (5) Coronary artery disease Current Visit: Yes Status: Chronic Assessment and plan: No chest pain. On aspirin, Plavix, beta bry and statin. Qualifiers: Coronary Disease-Associated Artery/Lesion type: [place] artery [place] vs. transplanted heart: [place] heart Associated angina: without angina Qualified Code(s): I25.10 - Atherosclerotic heart disease of [place] coronary artery without angina pectoris (6) Depression Current Visit: Yes Status: Chronic Assessment and plan: Continue Paxil Qualifiers: Depression Type: unspecified Qualified Code(s): F32.9 - Major depressive disorder, single episode, unspecified (7) Diabetes mellitus Current Visit: Yes Status: Chronic Assessment and plan: Adjustment in insulin based on glucose level. 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 Continue current medication regimen. Continue hydralazine 10mg iv prn. (9) Hyperlipidemia Current Visit: Yes Status: Chronic Assessment and plan: Continue atorvastatin Qualifiers: Hyperlipidemia type: unspecified Qualified Code(s): E78.5 - Hyperlipidemia , unspecified (10) Osteoarthritis Current Visit: Yes Status: Chronic Assessment and plan: Chronic. Supportive care. Patient is on chronic prednisone use at home. Qualifiers: Osteoarthritis location: unspecified site Osteoarthritis type: primary Qualified Code(s): M19.91 - Primary osteoarthritis, unspecified site (11) DVT prophylaxis Current Visit: Yes Status: Acute Assessment and plan: Heparin subcutaneously (12) Leukocytosis Current Visit: Yes Status: Acute Assessment and plan: UTI vs chronic steroid use. On levaquin. Qualifiers: Leukocytosis type: other Qualified Code(s): D72.828 - Other elevated white blood cell count - Time Spent With Patient 25 - 35 minutes - Subjective Interval history: Patient is a 81-year-old female admitted for altered mental status and UTI. Past medical history is significant for CAD, dementia, diabetes, hyperlipidemia , hypertension, kidney stone. Patient was seen and examined today. She is more awake and alert today. She has no fever, no nausea, no vomiting, no abdominal pain. Mild cough. White count is trend down. Will continue Levaquin. Follow-up white count level. Pt has persist wheezes on left lung, CT chest ordered to r/o neoplasm, result shows bronchitis, ortherwise unremarkable. Will cont cough syrup. - Constitutional Vitals: Temp Pulse Resp BP Pulse Ox 97.9 F 90 16 151/81 92 L 08/12/16 10:13 08/12/16 10:13 08/12/16 10:13 08/12/16 10:13 08/12/16 10:13 General appearance: Present: A&O X 1, mild distress. Absent: answers questions appropriately - Head Head exam: Present: atraumatic, normocephalic - Eye Eye exam: Present: PERRL, conjuntiva pink, sclera anicteric Pupils: Present: PERRL - Neck Neck exam general surgery: Present: supple, trachea midline. Absent: lymphadenopathy - Respiratory Respiratory exam: Present: CTAB. Absent: accessory muscle use, rales, rhonchi, wheezes - Cardiovascular Cardiovascular exam: Present: RRR, +S1, +S2. Absent: diastolic murmur, gallop, rubs, systolic murmur - GI/Abdominal GI/Abdominal exam: Present: normal bowel sounds, soft, no peritoneal signs. Absent: distended, tenderness - Extremities Exam Extremities exam: Present: warm, radial pulses palpable and symetrical. Absent : calf tenderness, cyanotic, pedal edema - Neurological Exam Neurological exam: Present: CN II-XII intact, oriented X3, no focal deficits. Absent: pronater drift, facial droop, speech deficit - Skin Skin exam: Present: dry, intact Internal Medicine: Result - Labs CBC & Chem 7: 08/12/16 04:49 08/11/16 04:31 Labs: Short CBC 08/12/16 Range/Units 04:49 WBC 13.9 H (4.3-11.1) K/mcL Hgb 9.9 L (11.5-15.4) g/dL Hct 31.3 L (35.3-44.9) % Plt Count 301 (140-400) K/mcL Neutrophils # 7.2 (1.6-8.9) K/mcL - ABG Interpretation ABG results: PT/INR, D-dimer PT 12.3 Seconds (9.4-12.1) H 08/01/16 12:23 - Impressions Impressions Chest CT 08/12/16 08:43 IMPRESSION: 1. Mild bibasilar bronchial wall thickening. Please correlate with clinical symptoms of bronchitis. 2. Coronary artery disease. 3. Mild cardiomegaly. 4. Osteopenia with age chronic compression deformity of T4, resulting in approximately 30% of anterior height loss. 5. Although not well seen on this exam, cystic collection in the pancreatic body has not appreciably changed when compared to prior exam of November 08, 2008. D/ / 08/12/2016 10:22:26 Steve Patricio MD / Ranjana Bishop Interpreting Provider: Steve Patricio MD Consult Discharge Plan - Plan Referrals: Miguel Moya Jr, MD [Primary Care Provider] -
[2016-08-12] MEDS: Acetaminophen 325 MG TABLET PO PRN (15:40)
[2016-08-12] MEDS: Melatonin 3 MG TABLET PO SCH (21:27)
[2016-08-12] MEDS: Insulin DETEMIR 100 UNIT/ML X5UNITS SQ SCH (21:27)
[2016-08-12] MEDS ORDERED: *HR* LORazepam 2 MG/ML VIAL IVP ONE (23:52)
[2016-08-13] MEDS: Ipratropium/Albuterol Neb 3 ML IH SCH ×6 (03:36→23:29)
[2016-08-13 06:01] LABS: Basophils % 0.2 %; Eosinophils # 0.5 K/mcL (0.0-0.6); Eosinophils % 3.1 %; Hematocrit 33.1 % (35.3-44.9); Hemoglobin 10.4 g/dL (11.5-15.4); Immature Granulocytes % 1.2 % (0-4); Lymphocytes # 3.4 K/mcL (0.6-4.6); Mean Corpuscular HGB Conc 31.4 g/dL (31.6-35.5); Mean Corpuscular Hemoglobin 28.3 pg (28.0-33.3); Mean Corpuscular Volume 90.2 fL (83.0-100.0); Mean Platelet Volume 9.7 fL (9.4-12.4); Monocytes # 1.5 K/mcL (0.0-1.3); Monocytes % 9.8 %; Neutrophils # 9.7 K/mcL (1.6-8.9); Platelet Count 318 K/mcL (140-400); Red Blood Count 3.67 M/mcL (3.82-4.97); Red Cell Distribution Width 15.2 % (11.5-14.5); Segmented Neutrophils % 63.7 %
[2016-08-13 06:12] LABS: BUN/Creatinine Ratio 21 (6-26); Blood Urea Nitrogen 19 mg/dL (7-20); Calcium 8.2 mg/dL (8.6-10.8); Carbon Dioxide 27 mEq/L (19-29); Chloride 106 mEq/L (98-109); Glucose 110 mg/dL (70-99); Osmolality,Calculated 297 (280-300); Potassium 3.7 mEq/L (3.5-4.5); Sodium 142 mEq/L (136-145); eGFR For African Americans > 60 (> 60); eGFR For Non-African Americans 58 (> 60)
[2016-08-13] MEDS: *HR* Heparin 5,000 UNIT/ML VIAL SQ SCH ×2 (06:37→17:29)
[2016-08-13] MEDS: GuaiFENesin Liq 200 MG/10 ML UDC PO SCH ×3 (06:38→17:29)
[2016-08-13] MEDS: Aspirin Enteric Coated 81 MG Tablet PO SCH (07:35)
[2016-08-13] MEDS: LEVOFLOXACIN 250 MG/50 ML IVPB SCH (07:35)
[2016-08-13] MEDS: Folic Acid 1 MG TABLET PO SCH (07:35)
[2016-08-13] MEDS: amLODIPine 5 MG TABLET PO SCH (07:36)
[2016-08-13] MEDS: Thiamine (B-1) 100 MG TABLET PO SCH (07:37)
[2016-08-13] MEDS: Metoprolol XL (24 HR) Succ 25 MG TAB.ER.24H PO SCH (07:37)
[2016-08-13] MEDS: Vitamin B Complex/Vit C/Vit E 1 EACH TABLET PO SCH (07:37)
[2016-08-13] MEDS: predniSONE 10 MG TABLET PO SCH (07:37)
[2016-08-13] MEDS: Insulin LISPRO 300 UNITS/3 ML VIAL SQ SCH ×4 (07:41→20:50)
--- NOTE | 2016-08-13 10:42 | Internal Med Progress Note ---
Date of Encounter: 08/13/16 Time of Encounter: 09:00 - Assessment and plan (1) Sepsis Current Visit: Yes Status: Acute Assessment and plan: Resolved. Chest x-ray shows stable basilar atelectasis/infiltrate unchanged from the prior x-ray. CT chest shows bronchitis. Qualifiers: Sepsis type: sepsis due to unspecified organism Qualified Code(s): A41.9 - Sepsis, unspecified organism (2) Acute kidney injury Current Visit: Yes Status: Acute Assessment and plan: Improved, DC IV fluid. Avoid nephrotoxic agents. We will stop Lasix. Monitor I&O and renal functions. (3) UTI (urinary tract infection) Current Visit: Yes Status: Acute Assessment and plan: Has finished antibiotic treatment. Urine culture negative. However, pt has increased WBC again, will restart levaquin treatment. Qualifiers: Urinary tract infection type: acute cystitis Hematuria presence: without hematuria Qualified Code(s): N30.00 - Acute cystitis without hematuria (4) Wheezing without diagnosis of asthma Current Visit: Yes Status: Acute Assessment and plan: On po steroids, O2 supplementation. Sometimes still has few wheezing. Will taper down steroid. CT chest to r/o malignancy, result unremarkable. Patient is on prednisone 10 mg daily at home for a long time per patient's daughter, for arthritis. We will continue the dose on discharge. (5) Coronary artery disease Current Visit: Yes Status: Chronic Assessment and plan: No chest pain. On aspirin, Plavix, beta bry and statin. Qualifiers: Coronary Disease-Associated Artery/Lesion type: [place] artery [place] vs. transplanted heart: [place] heart Associated angina: without angina Qualified Code(s): I25.10 - Atherosclerotic heart disease of [place] coronary artery without angina pectoris (6) Depression Current Visit: Yes Status: Chronic Assessment and plan: Continue Paxil Qualifiers: Depression Type: unspecified Qualified Code(s): F32.9 - Major depressive disorder, single episode, unspecified (7) Diabetes mellitus Current Visit: Yes Status: Chronic Assessment and plan: Adjustment in insulin based on glucose level. 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 Continue current medication regimen. Continue hydralazine 10mg iv prn. (9) Hyperlipidemia Current Visit: Yes Status: Chronic Qualifiers: Hyperlipidemia type: unspecified Qualified Code(s): E78.5 - Hyperlipidemia , unspecified (10) Osteoarthritis Current Visit: Yes Status: Chronic Assessment and plan: Chronic. Supportive care. Patient is on chronic prednisone use at home. Qualifiers: Osteoarthritis location: unspecified site Osteoarthritis type: primary Qualified Code(s): M19.91 - Primary osteoarthritis, unspecified site (11) DVT prophylaxis Current Visit: Yes Status: Acute Assessment and plan: Heparin subcutaneously (12) Leukocytosis Current Visit: Yes Status: Acute Assessment and plan: UTI vs chronic steroid use. On levaquin. Qualifiers: Leukocytosis type: other Qualified Code(s): D72.828 - Other elevated white blood cell count - Time Spent With Patient 25 - 35 minutes - Subjective Interval history: Patient is a 81-year-old female admitted for altered mental status and UTI. Past medical history is significant for CAD, dementia, diabetes, hyperlipidemia , hypertension, kidney stone. Patient was seen and examined today. She is more awake and alert today. Improved uptake. She has no fever, no nausea, no vomiting, no abdominal pain. Mild cough. White count is high possibly due to steroid use. However, pt has UTI, Will continue Levaquin to finish 7 day course. Follow-up white count level. Pt is ready to d/c to [facility]CF for continuous care. SW is working on placement. Continue PT/OT. - Constitutional Vitals: Temp Pulse Resp BP Pulse Ox 98.8 F 99 16 151/85 96 08/13/16 07:30 08/13/16 07:30 08/13/16 07:30 08/13/16 07:30 08/13/16 10:26 General appearance: Present: A&O X 1, mild distress. Absent: answers questions appropriately - Head Head exam: Present: atraumatic, normocephalic - Eye Eye exam: Present: PERRL, conjuntiva pink, sclera anicteric Pupils: Present: PERRL - Neck Neck exam general surgery: Present: supple, trachea midline. Absent: lymphadenopathy - Respiratory Respiratory exam: Present: CTAB. Absent: accessory muscle use, rales, rhonchi, wheezes - Cardiovascular Cardiovascular exam: Present: RRR, +S1, +S2. Absent: diastolic murmur, gallop, rubs, systolic murmur - GI/Abdominal GI/Abdominal exam: Present: normal bowel sounds, soft, no peritoneal signs. Absent: distended, tenderness - Extremities Exam Extremities exam: Present: warm, radial pulses palpable and symetrical. Absent : calf tenderness, cyanotic, pedal edema - Neurological Exam Neurological exam: Present: CN II-XII intact, oriented X3, no focal deficits. Absent: pronater drift, facial droop, speech deficit - Skin Skin exam: Present: dry, intact Internal Medicine: Result - Labs CBC & Chem 7: 08/13/16 05:12 08/13/16 05:12 Labs: Short CBC 08/13/16 Range/Units 05:12 WBC 15.3 H (4.3-11.1) K/mcL Hgb 10.4 L (11.5-15.4) g/dL Hct 33.1 L (35.3-44.9) % Plt Count 318 (140-400) K/mcL Neutrophils # 9.7 H (1.6-8.9) K/mcL BMP 08/13/16 05:12 Sodium 142 Potassium 3.7 Chloride 106 Carbon Dioxide 27 BUN 19 Creatinine 0.92 Glucose 110 H Calcium 8.2 L - ABG Interpretation ABG results: PT/INR, D-dimer PT 12.3 Seconds (9.4-12.1) H 08/01/16 12:23 - Impressions Impressions Chest CT 08/12/16 08:43 IMPRESSION: 1. Mild bibasilar bronchial wall thickening. Please correlate with clinical symptoms of bronchitis. 2. Coronary artery disease. 3. Mild cardiomegaly. 4. Osteopenia with age chronic compression deformity of T4, resulting in approximately 30% of anterior height loss. 5. Although not well seen on this exam, cystic collection in the pancreatic body has not appreciably changed when compared to prior exam of November 08, 2008. D/ / 08/12/2016 10:22:26 Steve Patricio MD / Ranjana Bishop Interpreting Provider: Steve Patricio MD Consult Discharge Plan - Plan Referrals: Miguel Moya Jr, MD [Primary Care Provider] -
[2016-08-13] MEDS: Melatonin 3 MG TABLET PO SCH (20:50)
[2016-08-13] MEDS: Insulin DETEMIR 100 UNIT/ML X5UNITS SQ SCH (20:52)
[2016-08-14] MEDS: GuaiFENesin Liq 200 MG/10 ML UDC PO SCH ×4 (00:45→18:06)
[2016-08-14] MEDS: Ipratropium/Albuterol Neb 3 ML IH SCH ×6 (03:54→23:11)
[2016-08-14] MEDS: *HR* Heparin 5,000 UNIT/ML VIAL SQ SCH ×2 (05:45→17:50)
[2016-08-14] MEDS: Folic Acid 1 MG TABLET PO SCH (07:51)
[2016-08-14] MEDS: Insulin LISPRO 300 UNITS/3 ML VIAL SQ SCH ×5 (07:51→21:21)
[2016-08-14] MEDS: Aspirin Enteric Coated 81 MG Tablet PO SCH (07:51)
[2016-08-14] MEDS: amLODIPine 5 MG TABLET PO SCH (07:52)
[2016-08-14] MEDS: levoFLOXacin 250 MG TABLET PO SCH (07:52)
[2016-08-14] MEDS: Thiamine (B-1) 100 MG TABLET PO SCH (07:53)
[2016-08-14] MEDS: predniSONE 10 MG TABLET PO SCH (07:53)
[2016-08-14] MEDS: Vitamin B Complex/Vit C/Vit E 1 EACH TABLET PO SCH (07:53)
[2016-08-14] MEDS: Metoprolol XL (24 HR) Succ 25 MG TAB.ER.24H PO SCH (07:53)
--- NOTE | 2016-08-14 12:35 | Internal Med Progress Note ---
Date of Encounter: 08/14/16 Time of Encounter: 09:00 - Assessment and plan (1) Sepsis Current Visit: Yes Status: Acute Assessment and plan: Resolved. Chest x-ray shows stable basilar atelectasis/infiltrate unchanged from the prior x-ray. CT chest shows bronchitis. Qualifiers: Sepsis type: sepsis due to unspecified organism Qualified Code(s): A41.9 - Sepsis, unspecified organism (2) Acute kidney injury Current Visit: Yes Status: Acute Assessment and plan: Improved, DC IV fluid. Avoid nephrotoxic agents. We will stop Lasix. Monitor I&O and renal functions. (3) UTI (urinary tract infection) Current Visit: Yes Status: Acute Assessment and plan: Has finished antibiotic treatment. Urine culture negative. However, pt has increased WBC again, will restart levaquin treatment. Qualifiers: Urinary tract infection type: acute cystitis Hematuria presence: without hematuria Qualified Code(s): N30.00 - Acute cystitis without hematuria (4) Wheezing without diagnosis of asthma Current Visit: Yes Status: Acute Assessment and plan: On po steroids, O2 supplementation. Sometimes still has few wheezing. Will taper down steroid. CT chest to r/o malignancy, result unremarkable. Patient is on prednisone 10 mg daily at home for a long time per patient's daughter, for arthritis. We will continue the dose on discharge. (5) Coronary artery disease Current Visit: Yes Status: Chronic Assessment and plan: No chest pain. On aspirin, Plavix, beta bry and statin. Qualifiers: Coronary Disease-Associated Artery/Lesion type: [place] artery [place] vs. transplanted heart: [place] heart Associated angina: without angina Qualified Code(s): I25.10 - Atherosclerotic heart disease of [place] coronary artery without angina pectoris (6) Depression Current Visit: Yes Status: Chronic Assessment and plan: Continue Paxil Qualifiers: Depression Type: unspecified Qualified Code(s): F32.9 - Major depressive disorder, single episode, unspecified (7) Diabetes mellitus Current Visit: Yes Status: Chronic Assessment and plan: Adjustment in insulin based on glucose level. 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 Continue current medication regimen. Continue hydralazine 10mg iv prn. (9) Hyperlipidemia Current Visit: Yes Status: Chronic Assessment and plan: Continue atorvastatin Qualifiers: Hyperlipidemia type: unspecified Qualified Code(s): E78.5 - Hyperlipidemia , unspecified (10) Osteoarthritis Current Visit: Yes Status: Chronic Assessment and plan: Chronic. Supportive care. Patient is on chronic prednisone use at home. Qualifiers: Osteoarthritis location: unspecified site Osteoarthritis type: primary Qualified Code(s): M19.91 - Primary osteoarthritis, unspecified site (11) DVT prophylaxis Current Visit: Yes Status: Acute Assessment and plan: Heparin subcutaneously (12) Leukocytosis Current Visit: Yes Status: Acute Assessment and plan: UTI vs chronic steroid use. On levaquin. Qualifiers: Leukocytosis type: other Qualified Code(s): D72.828 - Other elevated white blood cell count (13) Bladder distension Current Visit: Yes Status: Acute Assessment and plan: Plummer catheter, urology consult. - Time Spent With Patient 25 - 35 minutes - Subjective Interval history: Patient is a 81-year-old female admitted for altered mental status and UTI. Past medical history is significant for CAD, dementia, diabetes, hyperlipidemia , hypertension, kidney stone. Patient was seen and examined today. She is more awake and alert today. Improved uptake. She has no fever, no nausea, no vomiting. However, she c/o abdominal pain. Abd CT obtained and shows distended bladder with mild hydronephrosis. Urology consult was called. I discussed with the urologist, will place Plummer catheter and urology will see patient. - Constitutional Vitals: Temp Pulse Resp BP Pulse Ox 98.4 F 97 17 123/74 97 08/14/16 11:26 08/14/16 11:26 08/14/16 11:26 08/14/16 11:26 08/14/16 11:26 General appearance: Present: A&O X 1, mild distress. Absent: answers questions appropriately - Head Head exam: Present: atraumatic, normocephalic - Eye Eye exam: Present: PERRL, conjuntiva pink, sclera anicteric Pupils: Present: PERRL - Neck Neck exam general surgery: Present: supple, trachea midline. Absent: lymphadenopathy - Respiratory Respiratory exam: Present: CTAB. Absent: accessory muscle use, rales, rhonchi, wheezes - Cardiovascular Cardiovascular exam: Present: RRR, +S1, +S2. Absent: diastolic murmur, gallop, rubs, systolic murmur - GI/Abdominal GI/Abdominal exam: Present: normal bowel sounds, soft, tenderness (Mild tenderness in lower abdomen), no peritoneal signs. Absent: distended - Extremities Exam Extremities exam: Present: warm, radial pulses palpable and symetrical. Absent : calf tenderness, cyanotic, pedal edema - Neurological Exam Neurological exam: Present: CN II-XII intact, oriented X3, no focal deficits. Absent: pronater drift, facial droop, speech deficit - Skin Skin exam: Present: dry, intact Internal Medicine: Result - Labs CBC & Chem 7: 08/13/16 05:12 08/13/16 05:12 - ABG Interpretation ABG results: PT/INR, D-dimer PT 12.3 Seconds (9.4-12.1) H 08/01/16 12:23 - Impressions Impressions Abdomen/Pelvis CT 08/14/16 09:23 IMPRESSION: 1. The bladder is largely distended which may relate to sphincter dyssynergy. This results in mild hydronephrosis. 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 No evidence of obstructing urolithiasis. 2. Right hemidiaphragm elevation which may relate to paresis versus paralysis. There is mild lung base atelectasis. 3. Nonspecific bilateral lung base ground-glass densities and enlarged heart size. Mild acute congestive heart failure cannot be excluded. 4. There is no evidence of bowel obstruction, perforation, or abscess. Diffuse colonic diverticulosis with no CT evidence of acute diverticulitis. D/ / 08/14/2016 10:50:14 Michael Sadler MD / Ranjana Bishop Interpreting Provider: Michael Sadler MD Consult Discharge Plan - Plan Referrals: Miguel Moya Jr, MD [Primary Care Provider] -
--- NOTE | 2016-08-14 15:40 | Urology - Consult Note ---
Date of Encounter: 08/14/16 Time of Encounter: 15:36 - Assessment and Plan (1) Hydronephrosis Current Visit: Yes Status: Acute Qualifiers: Hydronephrosis type: other Qualified Code(s): N13.39 - Other hydronephrosis (2) Bladder distension Current Visit: Yes Status: Acute Assessment and plan: I'm unable to review the CT images because the PACS system is down. Based on the report she had large bladder distention which resulted in the hydronephrosis. Catheter was placed with the drainage of 1300 mL of urine. Because of the retention is likely multifactorial including age, mobility, medications, etc. Plan to leave the catheter in place for at least 1 week with follow-up in the urology office for voiding trial. No further urologic intervention required at this time. Hydronephrosis is likely going to resolve with catheter drainage. Urology CN:DEDRICK Reason for consult Urology: Other History of present illness: 81-year-old female admitted for UTI, pelvic pressure. Recent CT scan performed because of increasing urinary frequency and pelvic pain revealed a largely distended bladder with mild hydronephrosis. Catheters been placed time of consultation with return of 1300 mL of urine. No history of retention in the past Past Med Surg Social Fam HX - Past Medical History Medical history: arthritis, coronary artery disease, dementia, diabetes, GERD, hyperlipidemia, hypertension, kidney stones, myocardial infarction Psychiatric history: depression - Past Surgical History Surgical History: angioplasty/stent, cataract, cholecystectomy, hysterectomy, knee replacement (Bilateral total knee replacement), orthopedic, other (Right shoulder replacement), other (Surgery for ectopic , bilateral nephrostomy tubes and removal) - Social History Smoking Status: Never smoker Smokeless Tobacco Status: No Alcohol use: unknown Drug use: none Medications and Allergies Aspirin Enteric Coated [Aspirin EC] 81 mg PO DAILY 03/10/16 [History] Atorvastatin [Lipitor] 80 mg PO HS 03/10/16 [History] Clopidogrel [Plavix] 75 mg PO DAILY 03/10/16 [History] Furosemide [Lasix] 20 - 40 mg PO DAILY 03/10/16 [History] Insulin Glargine,Hum.rec.anlog [Lantus Solostar] 25 unit SQ BID 03/10/16 [ History] Lansoprazole [Prevacid] 30 mg PO QAM 03/10/16 [History] Paroxetine HCl 10 mg PO DAILY 03/10/16 [History] Potassium Chloride [K-Tab ER] 20 meq PO DAILY 03/10/16 [History] PredniSONE 10 mg PO DAILY 03/10/16 [History] Metoprolol XL (24 HR) Succ [Toprol XL] 25 mg PO DAILY 08/01/16 [History] Nitrofurantoin (BID) [Macrobid] 100 mg PO BID 08/01/16 [History] Ondansetron ODT [Zofran ODT] 4 mg PO Q4H PRN 08/01/16 [History] Quetiapine Fumarate [Quetiapine Fumarate] 25 mg PO DAILY 08/01/16 [History] Allergies codeine Allergy (Verified 08/01/16 13:44) See Comments hasn't taken since a child Review of Systems - Constitutional weakness, no chills, no malaise - EENT Nose, mouth and throat: no dizziness - Cardiovascular no chest pain - Gastrointestinal abdominal pain - Genitourinary Genitourinary: flank pain, urinary frequency - Musculoskeletal back pain - Integumentary no erythema - Neurological no confusion - Psychiatric no anxiety - Hematologic/Lymphatic no easy bleeding Exam Initial Vital Signs Temp Pulse Resp BP Pulse Ox 101 F H 103 18 98/57 91 L 08/01/16 11:12 08/01/16 11:12 08/01/16 11:12 08/01/16 11:12 08/01/16 11:12 - General physical appearance Present: well developed, no distress - Eyes Present: PERRL - ENT Present: normal nares - Neck Present: no masses - Respiratory Present: normal respiratory effort - Cardiovascular Cardiovascular exam IM: RRR - Abdomen Abdomen: Present: soft - Integumentary Present: no rash - Neurologic Absent: disoriented, confused Urology Results - Labs 08/13/16 05:12 08/13/16 05:12 Abnormal lab results WBC 15.3 K/mcL (4.3-11.1) H 08/13/16 05:12 RBC 3.67 M/mcL (3.82-4.97) L 08/13/16 05:12 Hgb 10.4 g/dL (11.5-15.4) L 08/13/16 05:12 Hct 33.1 % (35.3-44.9) L 08/13/16 05:12 MCHC 31.4 g/dL (31.6-35.5) L 08/13/16 05:12 RDW 15.2 % (11.5-14.5) H 08/13/16 05:12 Neutrophils # 9.7 K/mcL (1.6-8.9) H 08/13/16 05:12 Monocytes # 1.5 K/mcL (0.0-1.3) H 08/13/16 05:12 Nucleated RBCs/100 WBC 0.2 /100 WBC (0) H 08/10/16 04:47 PT 12.3 Seconds (9.4-12.1) H 08/01/16 12:23 Est GFR (Non-Af Amer) 58 (> 60) L 08/13/16 05:12 Glucose 110 mg/dL (70-99) H 08/13/16 05:12 POC Glucose 163 (58-89) H 08/14/16 11:33 Hemoglobin A1c 6.8 % (-5.6) H 08/01/16 12:23 Calcium 8.2 mg/dL (8.6-10.8) L 08/13/16 05:12 AST 39 Units/L (5-34) H 08/10/16 04:47 B-Natriuretic Peptide 134 pg/mL (0-100) H 08/01/16 12:23 Serum Total Protein 5.5 g/dL (6.0-8.3) L 08/10/16 04:47 Albumin 2.7 g/dL (3.5-5.0) L 08/10/16 04:47 Albumin/Globulin Ratio 1.0 (1.1-2.2) L 08/10/16 04:47 Folate 39.6 ng/mL (7.0-31.4) H 08/09/16 10:16 Urine Clarity Turbid (Clear) A 08/04/16 14:30 Urine Protein 30 mg/dL (Neg-Trace) H 08/04/16 14:30 Urine Glucose (UA) 100 mg/dL (Normal) H 08/04/16 14:30 Urine Blood Moderate (Negative) H 08/04/16 14:30 Urine Microscopic WBC 5-15 per hpf (0-3) H 08/04/16 14:30 Ur Squamous Epith Cells Many per lpf (None-Few) H 08/04/16 14:30 Urine Bacteria Many per hpf (None-Few) H 08/04/16 14:30 Granular Casts Few per lpf (None Seen) H 08/04/16 14:30 Ur Culture Indicated? YES (NO) A 08/04/16 14:30 Salicylates < 5.0 mg/dL (15-30) L 08/01/16 12:23 Acetaminophen 6.0 mcg/mL (10-30) L 08/01/16 12:23 All other labs normal. Consult Discharge Plan - Plan Referrals: Miguel Moya Jr, MD [Primary Care Provider] -
[2016-08-14] MEDS: Acetaminophen 325 MG TABLET PO PRN (16:43)
[2016-08-14] MEDS: Melatonin 3 MG TABLET PO SCH (21:20)
[2016-08-14] MEDS: Insulin DETEMIR 100 UNIT/ML X5UNITS SQ SCH (21:21)
[2016-08-15] MEDS: GuaiFENesin Liq 200 MG/10 ML UDC PO SCH ×3 (00:02→11:32)
[2016-08-15] MEDS: Ipratropium/Albuterol Neb 3 ML IH SCH ×3 (04:03→11:22)
[2016-08-15 05:01] LABS: Basophils % 0.1 %; Eosinophils # 0.5 K/mcL (0.0-0.6); Eosinophils % 3.7 %; Hematocrit 27.3 % (35.3-44.9); Immature Granulocytes % 0.7 % (0-4); Lymphocytes # 2.9 K/mcL (0.6-4.6); Lymphocytes % 21.1 %; Mean Corpuscular HGB Conc 31.1 g/dL (31.6-35.5); Mean Corpuscular Hemoglobin 28.6 pg (28.0-33.3); Mean Corpuscular Volume 91.9 fL (83.0-100.0); Mean Platelet Volume 9.7 fL (9.4-12.4); Monocytes # 1.3 K/mcL (0.0-1.3); Monocytes % 9.6 %; Neutrophils # 8.9 K/mcL (1.6-8.9); Platelet Count 258 K/mcL (140-400); Red Blood Count 2.97 M/mcL (3.82-4.97); Red Cell Distribution Width 15.6 % (11.5-14.5); Segmented Neutrophils % 64.8 %
[2016-08-15 05:02] LABS: Hemoglobin 8.5 g/dL (11.5-15.4)
[2016-08-15] MEDS: *HR* Heparin 5,000 UNIT/ML VIAL SQ SCH (05:06)
[2016-08-15 05:25] LABS: Calcium 7.9 mg/dL (8.6-10.8); Potassium 4.2 mEq/L (3.5-4.5)
[2016-08-15] MEDS: predniSONE 10 MG TABLET PO SCH (08:23)
[2016-08-15] MEDS: amLODIPine 5 MG TABLET PO SCH (08:23)
[2016-08-15] MEDS: Vitamin B Complex/Vit C/Vit E 1 EACH TABLET PO SCH (08:24)
[2016-08-15] MEDS: Metoprolol XL (24 HR) Succ 25 MG TAB.ER.24H PO SCH (08:24)
[2016-08-15] MEDS: Thiamine (B-1) 100 MG TABLET PO SCH (08:24)
[2016-08-15] MEDS: Folic Acid 1 MG TABLET PO SCH (08:24)
[2016-08-15] MEDS: Aspirin Enteric Coated 81 MG Tablet PO SCH (08:24)
[2016-08-15] MEDS: Insulin LISPRO 300 UNITS/3 ML VIAL SQ SCH ×2 (08:24→11:29)
[2016-08-15] MEDS: levoFLOXacin 250 MG TABLET PO SCH (08:24)
[2016-08-15 10:55] VITALS: BP 125/75
--- NOTE | 2016-08-15 11:32 | Discharge Summary ---
Date of Encounter: 08/15/16 Time of Encounter: 09:00 - Discharge Diagnosis (1) Sepsis Priority: Primary Status: Acute Qualifiers: Sepsis type: sepsis due to unspecified organism Qualified Code(s): A41.9 - Sepsis, unspecified organism (2) Acute kidney injury Priority: Primary Status: Acute (3) UTI (urinary tract infection) Priority: Primary Status: Acute Qualifiers: Urinary tract infection type: acute cystitis Hematuria presence: without hematuria Qualified Code(s): N30.00 - Acute cystitis without hematuria (4) Wheezing without diagnosis of asthma Priority: Primary Status: Acute (5) Coronary artery disease Priority: Secondary Status: Chronic Qualifiers: Coronary Disease-Associated Artery/Lesion type: [place] artery [place] vs. 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 fdc use Qualified Code(s): E11.8 - Type 2 diabetes mellitus with unspecified complications; Z79.4 - [facility]CI (current) use of insulin (8) Essential hypertension Priority: Secondary Status: Chronic (9) Hyperlipidemia Priority: Secondary Status: Chronic Qualifiers: Hyperlipidemia type: unspecified Qualified Code(s): E78.5 - Hyperlipidemia , unspecified (10) Osteoarthritis Priority: Secondary Status: Chronic Qualifiers: Osteoarthritis location: unspecified site Osteoarthritis type: primary Qualified Code(s): M19.91 - Primary osteoarthritis, unspecified site (11) DVT prophylaxis Priority: Secondary Status: Acute (12) Leukocytosis Priority: Secondary Status: Acute Qualifiers: Leukocytosis type: other Qualified Code(s): D72.828 - Other elevated white blood cell count (13) Bladder distension Priority: Primary Status: Acute - Discharge Medications Prescriptions: Amlodipine [Norvasc] 5 mg PO DAILY #30 tablet Docusate [Colace] 100 mg PO BID #30 capsule Levofloxacin [Levaquin] 250 mg PO DAILY #5 tablet Home Medications: Aspirin Enteric Coated [Aspirin EC] 81 mg PO DAILY 03/10/16 [History] Atorvastatin [Lipitor] 80 mg PO HS 03/10/16 [History] Clopidogrel [Plavix] 75 mg PO DAILY 03/10/16 [History] Insulin Glargine,Hum.rec.anlog [Lantus Solostar] 25 unit SQ BID 03/10/16 [ History] Lansoprazole [Prevacid] 30 mg PO QAM 03/10/16 [History] Paroxetine HCl 10 mg PO DAILY 03/10/16 [History] Potassium Chloride [K-Tab ER] 20 meq PO DAILY 03/10/16 [History] PredniSONE 10 mg PO DAILY 03/10/16 [History] Metoprolol XL (24 HR) Succ [Toprol Xl] 25 mg PO DAILY 08/01/16 [History] Ondansetron ODT [Zofran ODT] 4 mg PO Q4H PRN 08/01/16 [History] Quetiapine Fumarate 25 mg PO DAILY 08/01/16 [History] Amlodipine [Norvasc] 5 mg PO DAILY #30 tablet 08/15/16 [Rx] Docusate [Colace] 100 mg PO BID #30 capsule 08/15/16 [Rx] Levofloxacin [Levaquin] 250 mg PO DAILY #5 tablet 08/15/16 [Rx] Allergies/Adverse Reactions: Allergies codeine Allergy (Verified 08/01/16 13:44) See Comments hasn't taken since a child Procedures/tests Complete & Pending: Procedures Performed prior 72 hours Category Date Time Status CT abd pelvis wo no iv no oral [CT] Stat Cat Scan 08/14/16 09:23 Completed - Notes to Outpatient Provider 1. Patient had a UTI, please continue Levaquin 250 mg twice a day for 5 more days. 2. Patient has urinary retention, Plummer catheter has placed per urology. Please keep Plummer catheter and see urology as outpatient in 1 week. 3. Amlodipine 5 mg daily added to her home medication to achieve better BP control. 4. Patient's last lab shows hemoglobin slightly dropped from 10.4 to 8.5. Hemoglobin level is variable when she is in hospital from 9.1-10.6. Patient's vital signs are stable, no signs of bleeding. Consider lab variation. Please repeat hemoglobin in 2-3 days. Date of admission: 08/01/16 17:17 Primary care physician: Miguel Moya Jr, MD Consults: 08/05/16 16:02 Consult to Invasive Line Access Team [CONS] Routine Reason for Consult: No IV acess Line Type: EPIV 08/12/16 14:26 Consult to Occupational Therapy [CONS] Stat Comment: Evaluate, develop and implement POC 08/14/16 12:17 Consult to Urology [CONS] Routine Consulting Provider: Urology Nat Reason for Consult: Bladder distention Call Completed: Yes Discharging clinician: John Silva Anticipated date of discharge: 08/15/16 - Patient Status Disposition: Transfer SNF Condition: Fair Overall status at discharge: patient is progressing back to baseline - Discharge Instructions Follow Up With: Miguel Moya Jr, MD [Primary Care Provider] - Rufino Hu MD [Partnered Physician] - 08/22/16 - Diet and Activity Activity: as per physical therapy Diet: diabetic diet, low fat, low cholesterol, low salt diet Interval History: Ms. Cole is a 81 year old female with history of dementia, hypertension, diabetes was brought in by family for evaluation of lethargy and weakness. Patient is currently drowsy and is unable to provide any history, which is obtained from review of previous records, patient's daughter at bedside and from discussion with emergency room physician. Patient was noted to have progressive excessive sleepiness, generalized weakness and fatigue for the last few days and was taken to her primary care provider's office yesterday, where she was diagnosed with a urinary tract infection and was sent home on oral antibiotic. does not remember the name. She continued to have her symptoms associated with fever, nausea and dry heaves and an episode of vomiting this morning and she was brought into the emergency room for evaluation. She does not particularly report abdominal or flank pain, chest pain, shortness of breath, diarrhea. Patient does have a history of recurrent urinary infections, probably related to her history of renal stones. Hospital course: Ms. Cole is a 81 year old female admitted as UTI, sepsis, altered mental status. Patient was treated with IV antibiotic, her symptoms had improved, no further fever, no nausea vomiting. she was put on PT and OT. She was recommended to discharge to [facility]. Patient did develop urinary retention during hospitalization. Plummer catheter is placed and urology consult was called. Recommendation is to keep a Plummer catheter for at least one week and follow-up in the urology office for voiding trial. I saw and examined patient today, she is awake, alert, oriented 1, in no acute distress. No nausea, no vomiting, no fever, vital signs stable. Physical exam shows lungs are clear, S1S2, abdominal soft, nontender. Lab shows leukocytosis slight improvement but still high, possibly due to chronic steroid use. Hemoglobin is slightly dropped, no signs of active bleeding. I discussed the results with family (pt's daughter), since the patient has no signs of bleeding , vital signs stable, is highly likely caused by lab variation, can repeat hemoglobin level in 2-3 days in snf. Patient's daughter verbalized understanding and agreement. - Time Spent with Patient Total time spent providing and/or coordinating discharge services: 40 minute Greater than 30 minutes - Constitutional Vitals: Temp Pulse Resp BP Pulse Ox 98.2 F 76 14 125/75 97 08/15/16 10:37 08/15/16 10:37 08/15/16 10:37 08/15/16 10:37 08/15/16 10:37 General appearance: Present: A&O X 1, mild distress. Absent: answers questions appropriately - Head Head exam: Present: atraumatic, normocephalic - Eye Eye exam: Present: PERRL, conjuntiva pink, sclera anicteric Pupils: Present: PERRL - Neck Neck exam general surgery: Present: supple, trachea midline. Absent: lymphadenopathy - Respiratory Respiratory exam: Present: CTAB. Absent: accessory muscle use, rales, rhonchi, wheezes - Cardiovascular Cardiovascular exam: Present: RRR, +S1, +S2. Absent: diastolic murmur, gallop, rubs, systolic murmur - GI/Abdominal GI/Abdominal exam: Present: normal bowel sounds, soft, no peritoneal signs. Absent: distended, tenderness - Extremities Exam Extremities exam: Present: warm, radial pulses palpable and symetrical. Absent : calf tenderness, cyanotic, pedal edema - Neurological Exam Neurological exam: Present: CN II-XII intact, oriented X3, no focal deficits. Absent: pronater drift, facial droop, speech deficit - Skin Skin exam: Present: dry, intact
--- NOTE | 2016-08-15 11:56 | Physician Discharge Referral ---
ExtendedCare Referral Info Transfer To: [facility] Provider in Charge after Transfer: Other - Diagnosis (1) Sepsis Priority: Primary Status: Acute (2) Acute kidney injury Priority: Primary Status: Acute (3) UTI (urinary tract infection) Priority: Primary Status: Acute (4) Wheezing without diagnosis of asthma Priority: Primary Status: Acute (5) Coronary artery disease Priority: Secondary Status: Chronic (6) Depression Priority: Secondary Status: Chronic (7) Diabetes mellitus Priority: Secondary Status: Chronic (8) Essential hypertension Priority: Secondary Status: Chronic (9) Hyperlipidemia Priority: Secondary Status: Chronic (10) Osteoarthritis Priority: Secondary Status: Chronic (11) DVT prophylaxis Priority: Secondary Status: Acute (12) Leukocytosis Priority: Primary Status: Acute (13) Bladder distension Priority: Primary Status: Acute - Transfer Medications Prescriptions: Amlodipine [Norvasc] 5 mg PO DAILY #30 tablet Docusate [Colace] 100 mg PO BID #30 capsule Levofloxacin [Levaquin] 250 mg PO DAILY #5 tablet Home Medications: Aspirin Enteric Coated [Aspirin EC] 81 mg PO DAILY 03/10/16 [History] Atorvastatin [Lipitor] 80 mg PO HS 03/10/16 [History] Clopidogrel [Plavix] 75 mg PO DAILY 03/10/16 [History] Insulin Glargine,Hum.rec.anlog [Lantus Solostar] 25 unit SQ BID 03/10/16 [ History] Lansoprazole [Prevacid] 30 mg PO QAM 03/10/16 [History] Paroxetine HCl 10 mg PO DAILY 03/10/16 [History] Potassium Chloride [K-Tab ER] 20 meq PO DAILY 03/10/16 [History] PredniSONE 10 mg PO DAILY 03/10/16 [History] Metoprolol XL (24 HR) Succ [Toprol Xl] 25 mg PO DAILY 08/01/16 [History] Ondansetron ODT [Zofran ODT] 4 mg PO Q4H PRN 08/01/16 [History] Quetiapine Fumarate 25 mg PO DAILY 08/01/16 [History] Amlodipine [Norvasc] 5 mg PO DAILY #30 tablet 08/15/16 [Rx] Docusate [Colace] 100 mg PO BID #30 capsule 08/15/16 [Rx] Levofloxacin [Levaquin] 250 mg PO DAILY #5 tablet 08/15/16 [Rx] Allergies/Adverse Reactions: Allergies codeine Allergy (Verified 08/01/16 13:44) See Comments hasn't taken since a child - Respiratory Orders Smoking Cessation: Smoking cessation has been advised. For more information, call the [place] Tobacco Quit Line at 1-003-DDVB-NOW. - Lab Orders Lab Orders: CBC (in 2-3 days) - Advance Directives Code Status: Full Code - Mobility Orders Other - Rehabiliation Orders Rehab Potential: Fair - Diet Orders No Concentrated Sweets (Diabetes diet), Cardiac CERTIFICATION: I certify that the transfer of the above named patient to an Extended Care Facility is necessary for the continuing treatment of the diagnosis listed. The above information is true and accurate reflection of patient's current condition. Confidential - Redisclosure prohibited without a patient's written consent.
== END 2016-08-15 14:37 | DRG 871 ==
LOC: 3ANU 11:09 → EMEROO 11:09 → 3ANU 14:43 → SUATTDRO 17:17
PROVIDERS: ADMIT Internal Medicine; ATTEND Internal Medicine

== ENCOUNTER 2016-11-01 19:08 | Inpatient (IN) ==
--- NOTE | 2016-11-01 19:29 | Emergency Department Note ---
Disposition Clinical Impression: Pneumonia Qualifiers: Pneumonia type: due to unspecified organism Laterality: bilateral Lung location : lower lobe of lung Qualified Code(s): J18.9 - Pneumonia, unspecified organism Sepsis Qualifiers: Sepsis type: sepsis due to unspecified organism Qualified Code(s): A41.9 - Sepsis, unspecified organism Disposition: Admitted As Inpatient Condition: Undetermined Referrals: Clay Melendez MD [Primary Care Provider] - Forms: ED Satisfaction Letter Time of Disposition: 21:40 Altered Mental Status HPI - General Chief Complaint: ED Altered Mental Status Stated Complaint: unresponsive/DNR Time Seen by Provider: 11/01/16 19:15 Source: EMS, other Mode of arrival: EMS Limitations: altered mental status, physical limitation, age Nursing Notes Reviewed: Yes Vital Signs Reviewed: Yes - History of Present Illness HPI Narrative: 81-year-old female with recent diagnosis and discharge from [facility] for urosepsis. The patient apparently had a MRSA positive urinalysis and associated sepsis. The patient was brought in from ECF after having altered mental status, tachycardia. The patient arrives [facility] emergency department with heart rate in the 110s, blood pressure with a systolic 140, altered mental status where she has a GCS of 9. There is no other information presented at this time. Given the patient's tachycardia, altered mentation and hypoglycemia via EMS and ECF, we will begin a sepsis workup for the patient immediately. MD complaint: decreased responsiveness Onset (ago): unknown Context: unknown Treatments prior to arrival: glucose, IV fluid, oxygen - Related Data Home Medications Medication Instructions Recorded Confirmed Aspirin Enteric Coated [Aspirin EC] 81 mg PO DAILY 03/10/16 08/01/16 Atorvastatin [Lipitor] 80 mg PO HS 03/10/16 08/01/16 Clopidogrel [Plavix] 75 mg PO DAILY 03/10/16 08/01/16 Insulin Glargine,Hum.rec.anlog 25 unit SQ BID 03/10/16 08/01/16 [Lantus Solostar] Lansoprazole [Prevacid] 30 mg PO QAM 03/10/16 08/01/16 Paroxetine HCl 10 mg PO DAILY 03/10/16 08/01/16 Potassium Chloride [K-Tab ER] 20 meq PO DAILY 03/10/16 08/01/16 PredniSONE 10 mg PO DAILY 03/10/16 08/01/16 Metoprolol XL (24 HR) Succ [Toprol 25 mg PO DAILY 08/01/16 08/01/16 Xl] Ondansetron ODT [Zofran ODT] 4 mg PO Q4H PRN 08/01/16 08/01/16 Quetiapine Fumarate 25 mg PO DAILY 08/01/16 08/01/16 Previous Rx's Medication Instructions Recorded Amlodipine [Norvasc] 5 mg PO DAILY #30 tablet 08/15/16 Docusate [Colace] 100 mg PO BID #30 capsule 08/15/16 Levofloxacin [Levaquin] 250 mg PO DAILY #5 tablet 08/15/16 Levofloxacin [Levaquin] 750 mg PO DAILY #5 tablet 08/23/16 Allergies Allergy/AdvReac Type Severity Reaction Status Date / Time codeine Allergy See Verified 11/01/16 19:11 Comments Limitations: ROS unobtainable due to patients medical condition Past Medical History - Past Medical History Attestation: Yes The following information was validated with the patient. Source: patient Medical history: Reports: arthritis, coronary artery disease, dementia, diabetes , GERD, hyperlipidemia, hypertension, kidney stones, myocardial infarction Surgical history: Reports: angioplasty/stent, cataract, cholecystectomy, hysterectomy, knee replacement (Bilateral total knee replacement), orthopedic, other (Right shoulder replacement), other (Surgery for ectopic , bilateral nephrostomy tubes and removal) Psychiatric history: Reports: depression LABEL PASTER history: Reports: no LABEL PASTER history - Social History Smoking Status: Former smoker Smokeless Tobacco Status: No Alcohol use: Reports: none Drug use: Reports: none Physical Exam - General Limitations: altered mental status, physical limitation, age General appearance: lethargic - Head Head exam: atraumatic, normocephalic, normal inspection - Eye Eye exam: Present: normal appearance, PERRL, EOMI - ENT ENT exam: normal exam, normal oropharynx, mucous membranes moist - Neck Neck exam: Present: normal inspection - Chest Chest inspection: Present: normal inspection, symmetric chest wall rise - Respiratory Respiratory exam: Present: other (Course breath sounds bilaterally) - Cardiovascular Cardiovascular exam: Present: normal rhythm, tachycardia - Abdominal Exam Abdominal exam: Present: soft, Non-Tender, normal bowel sounds. Absent: guarding, rebound - Extremities Exam Extremities exam: Present: normal inspection - Expanded Neurological Exam Coma Scale Eye Opening: To Pain Coma Scale Motor Response: Localizes to Pain Coma Scale Verbal Response: Incomprehensible Coma Scale Total: 9 - Skin Skin exam: Present: warm, dry, intact, normal color Course - Reevaluation(s) Reevaluation #1: After speaking with family with regards to patient's history and complaints, they began to provide some information. The patient was admitted here cardiac issues and altered mental status with concern for sepsis. The patient was subsequently transferred to [facility] for urinary tract infection associated with Escherichia coli and MRSA. The patient has baseline dementia and has gotten progressively worse over the past few weeks with the patient is not interacting with caregivers family and a few intermittent episodes. They are concerned about the patient being septic and again not returning back to baseline. The family does have realistic expectations and understanding of dementia given the progressively worsening nature of the disease. Time: 20:56 Vital Signs Temperature 99.4 F 11/01/16 19:10 Pulse Rate 105 11/01/16 19:10 Respiratory Rate 16 11/01/16 19:10 Blood Pressure 142/67 11/01/16 19:10 O2 Sat by Pulse Oximetry 98 11/01/16 19:10 Temperature 98.7 F 11/01/16 19:38 Pulse Rate 102 11/01/16 21:10 Respiratory Rate 20 11/01/16 21:10 Blood Pressure 136/71 11/01/16 21:10 O2 Sat by Pulse Oximetry 99 11/01/16 21:10 Oxygen Delivery Oxygen Delivery Nasal Cannula Altered Mental Status - MDM Narrative Medical decision making narrative: Concern for pneumonia with CHF. Accepted by Dr. Thompson. - Lab Data Lab results reviewed: Yes I reviewed the patient's lab results. Result diagrams: 11/01/16 19:31 11/01/16 19:31 Lab Results 11/01/16 11/01/16 11/01/16 Range/Units 19:16 19:28 19:31 WBC 11.1 (4.3-11.1) K/mcL RBC 3.87 (3.82-4.97) M/mcL Hgb 10.8 L (11.5-15.4) g/dL Hct 36.4 (35.3-44.9) % MCV 94.1 (83.0-100.0) fL MCH 27.9 L (28.0-33.3) pg MCHC 29.7 L (31.6-35.5) g/dL RDW 16.2 H (11.5-14.5) % Plt Count 277 (140-400) K/mcL MPV 9.7 (9.4-12.4) fL Immature Gran % 1.2 (0-4) % Seg Neutrophils % 60.2 % Lymphocytes % 23.3 % Monocytes % 11.0 % Eosinophils % 4.0 % Basophils % 0.3 % Neutrophils # 6.7 (1.6-8.9) K/mcL Lymphocytes # 2.6 (0.6-4.6) K/mcL Monocytes # 1.2 (0.0-1.3) K/mcL Eosinophils # 0.5 (0.0-0.6) K/mcL Basophils # 0.0 (0.0-0.2) K/mcL PT (9.4-12.1) Seconds INR APTT (26.0-36.0) Seconds Sodium (136-145) mEq/L Potassium (3.5-4.5) mEq/L Chloride (98-109) mEq/L Carbon Dioxide (19-29) mEq/L BUN (7-20) mg/dL Creatinine (0.57-1.11) mg/dL Est GFR ( Amer) (> 60) Est GFR (Non-Af Amer) (> 60) BUN/Creatinine Ratio (6-26) Glucose (70-99) mg/dL POC Glucose 160 H (58-89) Calculated Osmolality (280-300) Lactic Acid (0.5-2.2) mmol/L Calcium (8.6-10.8) mg/dL Phosphorus (2.3-4.7) mg/dL Magnesium (1.6-2.6) mg/dL Total Bilirubin (0.2-1.2) mg/dL Direct Bilirubin (0.0-0.5) mg/dL Indirect Bilirubin (0.0-1.2) mg/dL AST (5-34) Units/L ALT (0-55) Units/L Alkaline Phosphatase (38-126) Units/L Troponin I (0-0.03) ng/mL B-Natriuretic Peptide 765 H (0-100) pg/mL Serum Total Protein (6.0-8.3) g/dL Albumin (3.5-5.0) g/dL Globulin (2.4-3.5) g/dL Albumin/Globulin Ratio (1.1-2.2) Urine Color (Yellow) Urine Clarity (Clear) Urine pH (5.0-8.0) pH Units Ur Specific [place] (1.010-1.025) Urine Protein (Neg-Trace) mg/dL Urine Glucose (UA) (Normal) mg/dL Urine Ketones (Negative) mg/dL Urine Blood (Negative) Urine Nitrite (Negative) Urine Bilirubin (Negative) Urine Urobilinogen (Normal) mg/dL Ur Leukocyte Esterase (Negative) Urine Microscopic RBC Urine Microscopic WBC (0-3) per hpf Ur Squamous Epith Cells (None-Few) per lpf Urine Bacteria (None-Few) per hpf Hyaline Casts (None-Few) per lpf Urine Yeast (None Seen) per hpf Ur Culture Indicated? (NO) 11/01/16 11/01/16 11/01/16 Range/Units 19:31 19:31 19:31 WBC (4.3-11.1) K/mcL RBC (3.82-4.97) M/mcL Hgb (11.5-15.4) g/dL Hct (35.3-44.9) % MCV (83.0-100.0) fL MCH (28.0-33.3) pg MCHC (31.6-35.5) g/dL RDW (11.5-14.5) % Plt Count (140-400) K/mcL MPV (9.4-12.4) fL Immature Gran % (0-4) % Seg Neutrophils % % Lymphocytes % % Monocytes % % Eosinophils % % Basophils % % Neutrophils # (1.6-8.9) K/mcL Lymphocytes # (0.6-4.6) K/mcL Monocytes # (0.0-1.3) K/mcL Eosinophils # (0.0-0.6) K/mcL Basophils # (0.0-0.2) K/mcL PT 10.2 (9.4-12.1) Seconds INR 1.0 APTT 25.8 L (26.0-36.0) Seconds Sodium 147 H (136-145) mEq/L Potassium 3.5 (3.5-4.5) mEq/L Chloride 115 H (98-109) mEq/L Carbon Dioxide 26 (19-29) mEq/L BUN 25 H (7-20) mg/dL Creatinine 0.97 (0.57-1.11) mg/dL Est GFR ( Amer) > 60 (> 60) Est GFR (Non-Af Amer) 55 L (> 60) BUN/Creatinine Ratio 26 (6-26) Glucose 140 H (70-99) mg/dL POC Glucose (58-89) Calculated Osmolality 311 H (280-300) Lactic Acid 1.1 (0.5-2.2) mmol/L Calcium 7.8 L (8.6-10.8) mg/dL Phosphorus 2.9 (2.3-4.7) mg/dL Magnesium 1.5 L (1.6-2.6) mg/dL Total Bilirubin 0.7 (0.2-1.2) mg/dL Direct Bilirubin 0.3 (0.0-0.5) mg/dL Indirect Bilirubin 0.4 (0.0-1.2) mg/dL AST 27 (5-34) Units/L ALT 26 (0-55) Units/L Alkaline Phosphatase 129 H (38-126) Units/L Troponin I (0-0.03) ng/mL B-Natriuretic Peptide (0-100) pg/mL Serum Total Protein 5.1 L (6.0-8.3) g/dL Albumin 2.0 L (3.5-5.0) g/dL Globulin 3.1 (2.4-3.5) g/dL Albumin/Globulin Ratio 0.6 L (1.1-2.2) Urine Color (Yellow) Urine Clarity (Clear) Urine pH (5.0-8.0) pH Units Ur Specific [place] (1.010-1.025) Urine Protein (Neg-Trace) mg/dL Urine Glucose (UA) (Normal) mg/dL Urine Ketones (Negative) mg/dL Urine Blood (Negative) Urine Nitrite (Negative) Urine Bilirubin (Negative) Urine Urobilinogen (Normal) mg/dL Ur Leukocyte Esterase (Negative) Urine Microscopic RBC Urine Microscopic WBC (0-3) per hpf Ur Squamous Epith Cells (None-Few) per lpf Urine Bacteria (None-Few) per hpf Hyaline Casts (None-Few) per lpf Urine Yeast (None Seen) per hpf Ur Culture Indicated? (NO) 11/01/16 11/01/16 11/01/16 Range/Units 19:31 19:39 21:19 WBC (4.3-11.1) K/mcL RBC (3.82-4.97) M/mcL Hgb (11.5-15.4) g/dL Hct (35.3-44.9) % MCV (83.0-100.0) fL MCH (28.0-33.3) pg MCHC (31.6-35.5) g/dL RDW (11.5-14.5) % Plt Count (140-400) K/mcL MPV (9.4-12.4) fL Immature Gran % (0-4) % Seg Neutrophils % % Lymphocytes % % Monocytes % % Eosinophils % % Basophils % % Neutrophils # (1.6-8.9) K/mcL Lymphocytes # (0.6-4.6) K/mcL Monocytes # (0.0-1.3) K/mcL Eosinophils # (0.0-0.6) K/mcL Basophils # (0.0-0.2) K/mcL PT (9.4-12.1) Seconds INR APTT (26.0-36.0) Seconds Sodium (136-145) mEq/L Potassium (3.5-4.5) mEq/L Chloride (98-109) mEq/L Carbon Dioxide (19-29) mEq/L BUN (7-20) mg/dL Creatinine (0.57-1.11) mg/dL Est GFR ( Amer) (> 60) Est GFR (Non-Af Amer) (> 60) BUN/Creatinine Ratio (6-26) Glucose (70-99) mg/dL POC Glucose 144 H (58-89) Calculated Osmolality (280-300) Lactic Acid (0.5-2.2) mmol/L Calcium (8.6-10.8) mg/dL Phosphorus (2.3-4.7) mg/dL Magnesium (1.6-2.6) mg/dL Total Bilirubin (0.2-1.2) mg/dL Direct Bilirubin (0.0-0.5) mg/dL Indirect Bilirubin (0.0-1.2) mg/dL AST (5-34) Units/L ALT (0-55) Units/L Alkaline Phosphatase (38-126) Units/L Troponin I 0.05 H* (0-0.03) ng/mL B-Natriuretic Peptide (0-100) pg/mL Serum Total Protein (6.0-8.3) g/dL Albumin (3.5-5.0) g/dL Globulin (2.4-3.5) g/dL Albumin/Globulin Ratio (1.1-2.2) Urine Color Yellow (Yellow) Urine Clarity Cloudy A (Clear) Urine pH 6.0 (5.0-8.0) pH Units Ur Specific [place] 1.019 (1.010-1.025) Urine Protein 30 H (Neg-Trace) mg/dL Urine Glucose (UA) 100 H (Normal) mg/dL Urine Ketones Negative (Negative) mg/dL Urine Blood Negative (Negative) Urine Nitrite Negative (Negative) Urine Bilirubin Negative (Negative) Urine Urobilinogen Normal (Normal) mg/dL Ur Leukocyte Esterase Small H (Negative) Urine Microscopic RBC Test Not Performed Urine Microscopic WBC 15-30 H (0-3) per hpf Ur Squamous Epith Cells Many H (None-Few) per lpf Urine Bacteria None Seen (None-Few) per hpf Hyaline Casts None Seen (None-Few) per lpf Urine Yeast Moderate H (None Seen) per hpf Ur Culture Indicated? YES A (NO) - Radiology Data Radiology results reviewed: Yes I reviewed the patient's radiology results. - EKG Data EKG attestation: Yes I reviewed and interpreted this EKG. EKG results narrative: Heart rate 10 5 bpm. ND interval 163 ms. QTC 437 ms. Normal axis. Sinus tachycardia. No ST elevation or ST depression noted. No atrial fibrillation or significant changes noted from EKG from 10/25/2016. TPA Checklist - LKW: 3-4.5 hrs Add. Contraindications Patient/family understanding: The patient/family members have been counseled and understood the risk, benefit , and alternatives of treatment.
[2016-11-01 19:37] LABS: Basophils % 0.3 %; Eosinophils # 0.5 K/mcL (0.0-0.6); Hematocrit 36.4 % (35.3-44.9); Hemoglobin 10.8 g/dL (11.5-15.4); Immature Granulocytes % 1.2 % (0-4); Lymphocytes # 2.6 K/mcL (0.6-4.6); Lymphocytes % 23.3 %; Mean Corpuscular HGB Conc 29.7 g/dL (31.6-35.5); Mean Corpuscular Hemoglobin 27.9 pg (28.0-33.3); Mean Corpuscular Volume 94.1 fL (83.0-100.0); Mean Platelet Volume 9.7 fL (9.4-12.4); Monocytes # 1.2 K/mcL (0.0-1.3); Neutrophils # 6.7 K/mcL (1.6-8.9); Platelet Count 277 K/mcL (140-400); Red Blood Count 3.87 M/mcL (3.82-4.97); Red Cell Distribution Width 16.2 % (11.5-14.5); Segmented Neutrophils % 60.2 %
[2016-11-01 19:42] LABS: Prothrombin Time 10.2 Seconds (9.4-12.1)
--- NOTE | 2016-11-01 19:44 | Emergency Department Note ---
START Narrative - START START: I examined this patient and my medical decision-making was reviewed with the CENTER MANAGER/PA/Advanced Practice Nurse/Resident Physician. I agree with the documented findings, disposition and treatment plan as described except to the extent set forth below. ED attending note: Patient seen with emergency medicine resident Dr. Doss. Please see a copy of his note for details of the H&P, evaluation, management and disposition of this patient. We independently had [id number] contact with the patient Briefly: 81-year-old female from [facility] facility nonverbal brought in for altered mental status and hypoglycemia. She is tachycardic. Recently discharged from [facility] for "sepsis" per EMS. Awaiting her side. Patient arouses to loud verbal and soft tactile stimuli. Chest x-ray shows increased markings bilaterally with adventitious breath sounds bilaterally. Glucose initially was in the 40s given glucose and went up to the mid 50s. Patient will get sepsis workup. Provided 45 minutes to service this patient. Awaiting results of the prior dictation from [place] and results of lab work today. Admission anticipated. Disposition pending
[2016-11-01 19:45] LABS: Activated Partial Thrombo Time 25.8 Seconds (26.0-36.0)
[2016-11-01 19:55] LABS: Bilirubin,Urine Negative (Negative); Blood,Urine Negative (Negative); Clarity,Urine Cloudy (Clear); Color,Urine Yellow (Yellow); Glucose,Urine (UA) 100 mg/dL (Normal); Ketones,Urine Negative (Negative); Leukocyte Esterase,Urine Small (Negative); Nitrite,Urine Negative (Negative); Protein,Urine 30 mg/dL (Neg-Trace); Specific Gravity,Urine 1.019 (1.010-1.025); Urobilinogen,Urine Normal (Normal)
[2016-11-01 19:58] LABS: Bacteria,Urine None Seen per hpf (None-Few); Hyaline Casts,Urine None Seen per lpf (None-Few); Squamous Epithelial Cell,Urine Many per lpf (None-Few); WBC,Urine 15-30 per hpf (0-3)
[2016-11-01 20:01] LABS: Alanine Aminotransferase 26 Units/L (0-55); Albumin/Globulin Ratio 0.6 (1.1-2.2); Alkaline Phosphatase 129 Units/L (38-126); Aspartate Amino Transferase 27 Units/L (5-34); BUN/Creatinine Ratio 26 (6-26); Bilirubin,Direct 0.3 mg/dL (0.0-0.5); Bilirubin,Indirect 0.4 mg/dL (0.0-1.2); Bilirubin,Total 0.7 mg/dL (0.2-1.2); Blood Urea Nitrogen 25 mg/dL (7-20); Calcium 7.8 mg/dL (8.6-10.8); Carbon Dioxide 26 mEq/L (19-29); Chloride 115 mEq/L (98-109); Globulin 3.1 g/dL (2.4-3.5); Glucose 140 mg/dL (70-99); Magnesium 1.5 mg/dL (1.6-2.6); Osmolality,Calculated 311 (280-300); Phosphorous 2.9 mg/dL (2.3-4.7); Potassium 3.5 mEq/L (3.5-4.5); Sodium 147 mEq/L (136-145); Total Protein 5.1 g/dL (6.0-8.3); eGFR For African Americans > 60 (> 60); eGFR For Non-African Americans 55 (> 60)
[2016-11-01 20:10] LABS: Yeast,Urine Moderate per hpf (None Seen)
[2016-11-01] MEDS ORDERED: Vancomycin 1,000 MG in D5% in Water 250 ML IVPB ONE (20:52)
[2016-11-01] MEDS ORDERED: Piperacillin/Tazobactam 3.375 GM in D5% in Water (Mini-Bag+) 100 ML IVPB ONE (20:52)
[2016-11-02] MEDS: D5% in 0.45% NACL 1,000 ML IVC SCH ×2 (04:58→18:57)
[2016-11-02] MEDS ORDERED: Naloxone 0.4 MG/ML INJ IVP PRN (09:13)
[2016-11-02] MEDS ORDERED: Ondansetron ODT 4 MG TAB.RAPDIS PO PRN (09:33)
--- NOTE | 2016-11-02 09:59 | Internal Med History&Physical ---
<Jenaro Hodgeaju T - Last Filed: 11/02/16 11:04> Date of Encounter: 11/02/16 Internal Medicine - H&P: HPI History of present illness: Ms. Cole is a 81 year old female Internal Medicine - H&P: Meds Aspirin Enteric Coated [Aspirin EC] 81 mg PO DAILY 03/10/16 [History] Atorvastatin [Lipitor] 80 mg PO HS 03/10/16 [History] Clopidogrel [Plavix] 75 mg PO DAILY 03/10/16 [History] Insulin Glargine,Hum.rec.anlog [Lantus Solostar] 25 unit SQ BID 03/10/16 [ History] Lansoprazole [Prevacid] 30 mg PO QAM 03/10/16 [History] Paroxetine HCl 10 mg PO DAILY 03/10/16 [History] Potassium Chloride [K-Tab ER] 20 meq PO DAILY 03/10/16 [History] PredniSONE 10 mg PO DAILY 03/10/16 [History] Metoprolol XL (24 HR) Succ [Toprol Xl] 25 mg PO DAILY 08/01/16 [History] Ondansetron ODT [Zofran ODT] 4 mg PO Q4H PRN 08/01/16 [History] Quetiapine Fumarate 25 mg PO DAILY 08/01/16 [History] Amlodipine [Norvasc] 5 mg PO DAILY #30 tablet 08/15/16 [Rx] Docusate [Colace] 100 mg PO BID #30 capsule 08/15/16 [Rx] Levofloxacin [Levaquin] 250 mg PO DAILY #5 tablet 08/15/16 [Rx] Levofloxacin [Levaquin] 750 mg PO DAILY #5 tablet 08/23/16 [Rx] Allergies codeine Allergy (Verified 11/01/16 19:11) See Comments hasn't taken since a child All Systems PM: A 10-system review of systems was performed and is negative for pertinent findings except as documented above in the HPI. - Constitutional Vitals: Temp Pulse Resp BP Pulse Ox 98.5 F 106 24 136/70 97 11/02/16 09:30 11/02/16 09:30 11/02/16 09:30 11/02/16 09:30 11/02/16 09:30 Internal Med - H&P Results - Labs CBC & Chem 7: 11/01/16 19:31 11/01/16 19:31 - Attending Attestation I examined this patient and my medical decision-making was reviewed with the DIRECTOR PART/PA/Advanced Practice Nurse/Resident Physician. I agree with the documented findings, disposition and treatment plan as described except to the extent set forth below. 81 Y/O F with many multiple medical co-morbidities including advanced dementia, non-vebral She was just discharged from [facility] 11/01/16 afternoon and referred to SNF. As per the attending d/c summary, patient was managed foe severe sepsis secondary to MRSA and E.coli UTI, associated demand ischemia, lactic acidosis, JUAN. Palliative and medicine had recommended hospice at time of discharge. Patient was brought here from SNF this morning after being found unresponsive and with hypoglycemia She is non-verbal at time of review, does not respond to name call, does not open her eye, she locates noxious stimuli, she is dehydrated, with dry caked secretion on oral mucosa, she does not follow commands. Chest is clear anteriorly, abdomen is soft not tender, she has 1+ edema on both upper and lower extremities. Labs and Imaging reviewed, Paper chart from [facility] reviewed: CBC unremarkable , Coag panel WNL, Chem at baseline, lactate normal, low magnesium, troponin 0.05 , UA dirty. EKG Afib, Urine culture 10/25-MRSA/E.coli, CXR: Bilateral airspace opacities. BNP 765. A/P: Hypoglycemia in patient with advanced dementia with acute encephalopathy from recently treated severe sepsis. Patients altered mental status seems to be her baseline from discharge center 11/01/16, however, we will await her childrens arrival to discuss their goals of care. She possibly has HCAP and we will continue Zosyn and Vancomycin, her overall picture seems stable when compared with findings stated in her discharge summary, hold insulin, replace magnesium, patient will benefit from hospice. She is DNR-CC-A. Rest of details as in [facility] documentation. <Liam Amezquita - Last Filed: 11/02/16 12:30> Date of Encounter: 11/02/16 Time of Encounter: 09:30 Assessment and Plan (1) Pneumonia Current visit: Yes Status: Acute Assess: EKG chest x-ray of 11/01/16 shows stable cardiomegaly, low lung volumes, and small right pleural effusion. Patient does not currently meet SIRS criteria for sepsis based on only sinus tachycardia, however IV vancomycin and Zosyn have been ordered to address her possible pneumonia and residual UTI. Blood cultures and UA ordered in the ED both negative. Plan: Strep pneumo antigen ordered Legionella antigen ordered Vancomycin IVPB ordered to cover possible pneumonia and residual UTI Zosyn IVPB ordered to cover possible pneumonia and residual UTI O2 at 2L via nasal cannula ordered. Titrate if SpO2 < 92% Continuous vital sign assessment Q4 Qualifiers: Pneumonia type: due to unspecified organism Laterality: bilateral Lung location: lower lobe of lung Qualified Code(s): J18.9 - Pneumonia, unspecified organism (2) At risk for aspiration Current visit: Yes Status: Acute Assess: Mrs. Cole is an 81 year-old female who is presently nonresponsive to her name and any questions even with rousing and therefore is noncontributory. Patient is at risk for aspiration due to her present nonresponsive status. Plan: Aspiration precautions ordered NPO diet HOB elevated to 45 degrees (3) Mental status change Current visit: Yes Status: Acute Assess: Mrs. Cole is an 81 year-old female who is presently nonresponsive to her name and any questions even with rousing and therefore is noncontributory, so all information is taken from ED notes and previous visits from [facility] dated 10/25/16 to 11/01/16. Mrs. Cole presents to [facility] from the ED with altered mental status and dementia. Discussed palliative care and code status with family on 11/02/16 at 11:40. Family expresses interest in palliative care/ hospice and still has questions. Palliative consult ordered. Plan: Aspiration precautions ordered NPO diet SW consult ordered Palliative care consult ordered Qualifiers: Altered mental status type: unspecified Qualified Code(s): R41.82 - Altered mental status, unspecified (4) DVT prophylaxis Current visit: Yes Status: Acute DVT prophylaxis ordered due to patient being nonresponsive and bed bound, inpatient status, and history of CAD. Internal Medicine - H&P: HPI Chief complaint: Altered mental status Admitted From: Emergency Dept Plans for Post Hospital Care: Transfer [facility] [facility] Care History of present illness: Mrs. Cole is an 81 year-old female who is presently nonresponsive to her name and any questions even with rousing and therefore is noncontributory, so all information is taken from ED notes and previous visits from [facility] dated 10/25/16 to 11/01/16. Mrs. Cole presents to [facility] from the ED with altered mental status and dementia. Patient was taken to the ED by squad after returning to [facility] on 11/01/16 after discharge from [facility] in [place] on 11/01/16. Patient was admitted to [facility] on 10/25/16 for chief complaints of severe sepsis, UTI, encephalopathy, and JUAN. Notes from [facility] state the patient was talkative yet not oriented. Patient is currently nonresponsive. Patient has long history of UTIs. Patient has history of arthritis, CAD, dementia, diabetes, GERD, hyperlipidemia, hypertension, renal calculi, and myocardial infarction. Patient also has psychiatric history of depression. [facility] ED imaging included CT of head without IV contrast which showed white matter low attenuation most consistent with chronic small vessel ischemia, no evidence of acute hemorrhage or mass or extra- axial fluid collection, and no acute intracranial abnormalities. EKG chest x- ray of 11/01/16 shows stable cardiomegaly, low lung volumes, and small right pleural effusion. Patient does not currently meet SIRS criteria for sepsis based on only sinus tachycardia, however IV vancomycin and Zosyn have been ordered to address her possible pneumonia and residual UTI. Blood cultures and UA ordered in the ED both negative. Palliative care consult ordered. Social work consult ordered. Current and notable labs on admission to ED include: glucose of 160 (routine glucose monitoring ordered), BNP pf 765 (which may be due to current possible pneumonia), lactic acid of 1.1 (which is an improvement from the lactic acid level of 9.6 at [facility]), and troponin level of 0.05 ( improved from troponin level of 0.24 at [facility]). Past Med Surg Social Fam HX - Past Medical History Medical history: arthritis, coronary artery disease, dementia, diabetes, GERD, hyperlipidemia, hypertension, kidney stones, myocardial infarction Psychiatric history: depression - Past Surgical History Surgical History: angioplasty/stent, cataract, cholecystectomy, hysterectomy, knee replacement (Bilateral total knee replacement), orthopedic, other (Right shoulder replacement), other (Surgery for ectopic , bilateral nephrostomy tubes and removal) - Social History Smoking Status: Former smoker Smokeless Tobacco Status: No Alcohol use: none Drug use: none Occupational status: other Current living situation: Other (LT care facility) Activity Level: Other (Unknown) Recent Out of Country Travel Within the Last 8 Weeks: No Exposure or Possible Exposure to Illness During Travel: No ROS unobtainable: due to mental status (Mrs. Cole is nonresponsive to questions or rousing at the time of assessment and examination.) All Systems PM: A 10-system review of systems was performed and is negative for pertinent findings except as documented above in the HPI. - Constitutional Vitals: Temp Pulse Resp BP Pulse Ox 98.5 F 106 24 136/70 97 11/02/16 09:30 11/02/16 09:30 11/02/16 09:30 11/02/16 09:30 11/02/16 09:30 Exam: Mrs. Cole is nonresponsive to name and questions even with rousing and therefore is noncontributory and all information is taken from ED notes and previous visits from [facility]. Patient appears lethargic, in no apparent distress, with normal color and skin temp. - Head Head exam: Present: atraumatic, normocephalic - Eye Additional comments: Unable to do eye exam due to patient's current noncontributory status. - ENT ENT exam: Present: normal exam - Neck Neck exam general surgery: Present: normal inspection - Respiratory Additional comments: Patient breathing normally without distress on 2L O2 to be titrated if SpO2 < 92 %. - Cardiovascular Cardiovascular exam: Present: RRR, +S1, +S2. Absent: diastolic murmur, gallop, rubs, systolic murmur - GI/Abdominal Additional comments: GI exam deferred. - Rectal Rectal exam: Present: deferred - Additional comments: Deferred. - Extremities Exam Additional comments: Deferred. - Back Exam Additional comments: Deferred. - Neurological Exam Additional comments: Patient is currently nonresponsive to stimuli. - Psychiatric Additional comments: Patient has a history of depression according to medical records. - Skin Skin exam: Present: dry, intact, normal color, warm Internal Med - H&P Results - Labs CBC & Chem 7: 11/01/16 19:31 11/01/16 19:31 - EKG Data Prior EKG available for review: yes When compared to previous EKG: there are significant changes EKG comments: 11/02/16 10:47 EKG dated 10/25/16 shows atrial fibrillation with RVR, ST deviation and moderate T-wave abnormality - consider anterolateral ischemia. EKG dated 11/01/16 shows sinus tachycardia with possible anterior myocardial infarction of indeterminate age, moderate T-wave abnormality - consider lateral ischemia. - Diagnostic Studies Chest x-ray Additional comments: CXR dated 11/01/16 shows no evidence of pneumothorax, stable cardiomegaly, airspace opacities bilaterally which may be related to pulmonary edema versus pneumonia (mildly increased since prior study), small right pleural effusion. CT scan - head Additional comments: A CT of the head dated 11/01/16 shows degradation by motion. Brain ventricles show unchanged moderate patchy periventricular and sub cortical white matter low attenuation most consistent with chronic small vessel ischemia. There are few small bilateral remote basal ganglia lacunar infarcts. There is no evidence of acute hemorrhage, mass, or extra-axial fluid collection.No acute abnormailities noted in orbits, sinuses, soft tissues/skull.
[2016-11-02] MEDS ORDERED: Vancomycin 1,250 MG in D5% in Water 250 ML IVPB SCH (10:00)
[2016-11-02] MEDS ORDERED: Magnesium Sulfate 2 GM in D5% in Water 100 ML IVPB ONE (11:02)
[2016-11-02] MEDS: Vancomycin 1,250 MG in D5% in Water 250 ML IVPB SCH (12:26)
--- NOTE | 2016-11-02 13:27 | Palliative - Consult Note ---
Date of Encounter: 11/02/16 Time of Encounter: 13:25 - Assessment and Plan (1) Goals of care, counseling/discussion Current Visit: Yes Status: Acute Assessment and plan: Discuss goals of care with the patient's daughter, Joelle. At this time, plan is for patient to continue current level of care. Her previously known intent was to be a DNR comfort care arrest/DNR I. CODE STATUS will be changed to reflect patient's prior known wishes. Goal for patient is to return to [facility], when medically stable. Family continues to contemplate hospice care. The patient has had a markedly declining health over the past year. Estimate palliative performance scale of 40%. We will follow up with further family meetings as condition warrants. (2) Mental status change Current Visit: Yes Status: Acute Assessment and plan: Management per hospitalist Qualifiers: Altered mental status type: unspecified Qualified Code(s): R41.82 - Altered mental status, unspecified (3) Pneumonia Current Visit: Yes Status: Acute Assessment and plan: Management per hospitalist Qualifiers: Pneumonia type: due to unspecified organism Laterality: bilateral Lung location: lower lobe of lung Qualified Code(s): J18.9 - Pneumonia, unspecified organism Palliative-CN HPI - Data of Consult Patient: new to practice Consult date: 11/02/16 Requesting Physician: Sherita Hong MD Primary Care Provider: Clay Melendez MD - Consult Narrative Palliative Care/Comfort Measures: Palliative care Reason for consult: Goals of care History of present illness: Ms. Cole is a 81 year old female presenting to [facility] with altered mental status. Ms. Cole had a recent hospitalization for urosepsis at [facility]. She was there and treated for MRSA UTI. She was then discharged back to [facility] facility. Prior to admission, the patient had been increasingly more lethargic. She was found to be hypoglycemic with an altered mental status, and was transferred to [facility] emergency department. She was admitted for further workup and treatment. The palliative care team was consulted given her chronic medical conditions. Ms. Cole's daughter-Joelle, is available at bedside for history taking purposes. Over the past year, the patient has been an overall decline in health. She is bedbound at baseline. On occasion, she would use a wheelchair, but only if necessary. She has not utilized wheelchair in over 2 months. Her appetite has been progressively worsening over the past year. During her recent admission for urosepsis, she was found to be aspirating. Speech therapy recommended diet alteration to pureed foods with thickened liquids. Ms. Cole has been residing at a local extended care facility for the past 3-4 months. Proximally one month after placement at rehabilitation, she was discharged from the skilled need, and she has been staying [facility] as a long-term care patient since then. Family has had prior conversations with hospice services prior to admission to the hospital. CC: Sherita Hong MD Past Med Surg Social Fam HX - Past Medical History Source: obtained from family Medical history: arthritis, coronary artery disease, dementia, diabetes, GERD, hyperlipidemia, hypertension, kidney stones, myocardial infarction Psychiatric history: depression - Past Surgical History Surgical History: angioplasty/stent, cataract, cholecystectomy, hysterectomy, knee replacement (Bilateral total knee replacement), orthopedic, other (Right shoulder replacement), other (Surgery for ectopic , bilateral nephrostomy tubes and removal) - Social History Smoking Status: Former smoker Smokeless Tobacco Status: No Alcohol use: none Drug use: none Current living situation: ECF Activity Level: Bed bound Recent Out of Country Travel Within the Last 8 Weeks: No Exposure or Possible Exposure to Illness During Travel: No Medications and Allergies Aspirin Enteric Coated [Aspirin EC] 81 mg PO DAILY 03/10/16 [History] Atorvastatin [Lipitor] 80 mg PO HS 03/10/16 [History] Clopidogrel [Plavix] 75 mg PO DAILY 03/10/16 [History] Insulin Glargine,Hum.rec.anlog [Lantus Solostar] 25 unit SQ BID 03/10/16 [ History] Lansoprazole [Prevacid] 30 mg PO QAM 03/10/16 [History] Paroxetine HCl 10 mg PO DAILY 03/10/16 [History] Potassium Chloride [K-Tab ER] 20 meq PO DAILY 03/10/16 [History] PredniSONE 10 mg PO DAILY 03/10/16 [History] Metoprolol XL (24 HR) Succ [Toprol Xl] 25 mg PO DAILY 08/01/16 [History] Ondansetron ODT [Zofran ODT] 4 mg PO Q4H PRN 08/01/16 [History] Quetiapine Fumarate 25 mg PO DAILY 08/01/16 [History] Amlodipine [Norvasc] 5 mg PO DAILY #30 tablet 08/15/16 [Rx] Docusate [Colace] 100 mg PO BID #30 capsule 08/15/16 [Rx] Levofloxacin [Levaquin] 250 mg PO DAILY #5 tablet 08/15/16 [Rx] Levofloxacin [Levaquin] 750 mg PO DAILY #5 tablet 08/23/16 [Rx] Allergies codeine Allergy (Verified 11/01/16 19:11) See Comments hasn't taken since a child ROS unobtainable: due to mental status Palliative Care-Exam - Constitutional Vitals: Temp Pulse Resp BP Pulse Ox 98.9 F 106 20 136/73 100 11/02/16 12:36 11/02/16 12:36 11/02/16 12:36 11/02/16 12:36 11/02/16 12:36 General appearance: Present: no acute distress. Absent: cooperative Exam: 81 year old female, unresponsive but moans with turning or painful stimuli, withdraws to tactile stimulation of bilateral feet. - Eye Pupils: Present: PERRL - ENT ENT exam: Present: mucous membranes dry - Respiratory Respiratory exam: Present: decreased breath sounds (shallow). Absent: accessory muscle use, respiratory distress - Cardiovascular Cardiovascular exam: Present: RRR. Absent: tachycardia - GI/Abdominal Exam GI/Abdominal exam: Present: normal bowel sounds, soft. Absent: tenderness - Catheter Type: Urethral ([place]) - Extremities Exam Extremities exam: Present: pedal edema (mild) - Expanded Upper Extremities Exam Hand wrist exam: Present: swelling - Neurological Exam Neurological exam: Absent: alert - Psychiatric Psychiatric exam: Absent: agitated, anxious - Skin Skin exam: Present: dry, warm Internal Medicine - CN: Reslt - Labs CBC & Chem 7: 11/01/16 19:31 11/01/16 19:31 - ABG Interpretation ABG results: PT/INR, D-dimer PT 10.2 Seconds (9.4-12.1) 11/01/16 19:31 Consult Discharge Plan - Plan Referrals: Clay Melnedez MD [Primary Care Provider] - Palliative Quality Palliative Quality: Screen for Code Status: Yes, Screen for Goals of Care: Yes, Screen for Pain: Yes, If Pain Regimen Started, Initiate Bowel Regimen: NA, Screen for Nausea/Vomitting: Yes
[2016-11-02 14:01] LABS: Basophils % 0.3 %; Eosinophils # 0.7 K/mcL (0.0-0.6); Eosinophils % 5.4 %; Hematocrit 32.7 % (35.3-44.9); Hemoglobin 9.9 g/dL (11.5-15.4); Immature Granulocytes % 1.2 % (0-4); Lymphocytes # 3.4 K/mcL (0.6-4.6); Lymphocytes % 28.4 %; Mean Corpuscular HGB Conc 30.3 g/dL (31.6-35.5); Mean Corpuscular Hemoglobin 27.7 pg (28.0-33.3); Mean Corpuscular Volume 91.6 fL (83.0-100.0); Mean Platelet Volume 10.3 fL (9.4-12.4); Monocytes # 1.5 K/mcL (0.0-1.3); Monocytes % 12.2 %; Neutrophils # 6.3 K/mcL (1.6-8.9); Platelet Count 274 K/mcL (140-400); Red Blood Count 3.57 M/mcL (3.82-4.97); Segmented Neutrophils % 52.5 %
[2016-11-02 14:17] LABS: Basophilic Stippling 1+ (Not Present); Platelet Estimate Normal (Normal)
[2016-11-02] MEDS: Piperacillin/Tazobactam 3.375 GM in D5% in Water (Mini-Bag+) 100 ML IVPB SCH (17:46)
[2016-11-02] MEDS ORDERED: *HR* Metoprolol 5 MG/5 ML VIAL IVP PRN (17:56)
[2016-11-02 22:57] LABS: Hematocrit 30.8 % (35.3-44.9); Hemoglobin 9.2 g/dL (11.5-15.4); Mean Corpuscular HGB Conc 29.9 g/dL (31.6-35.5); Mean Corpuscular Hemoglobin 27.8 pg (28.0-33.3); Mean Corpuscular Volume 93.1 fL (83.0-100.0); Mean Platelet Volume 9.8 fL (9.4-12.4); Platelet Count 281 K/mcL (140-400); Red Blood Count 3.31 M/mcL (3.82-4.97); Red Cell Distribution Width 16.1 % (11.5-14.5)
[2016-11-02 23:16] LABS: BUN/Creatinine Ratio 22 (6-26); Blood Urea Nitrogen 20 mg/dL (7-20); Calcium 7.4 mg/dL (8.6-10.8); Carbon Dioxide 27 mEq/L (19-29); Chloride 114 mEq/L (98-109); Glucose 142 mg/dL (70-99); Magnesium 1.8 mg/dL (1.6-2.6); Osmolality,Calculated 307 (280-300); Potassium 3.1 mEq/L (3.5-4.5); Sodium 146 mEq/L (136-145); eGFR For African Americans > 60 (> 60); eGFR For Non-African Americans > 60 (> 60)
--- NOTE | 2016-11-02 23:27 | Event Note ---
Date of Encounter: 11/02/16 Time of Encounter: 22:00 On-call Hospitalist note: I have been asked to see the pt for tachycardia. HR in 130s and irregular. Stat EKG confirms A fib with RVR. Vitals reviewed. Started on diltiazem bolus, followed by diltiazem infusion. Pt seem to tolerate well. Consider Cardiology consult.
[2016-11-03] MEDS ORDERED: Potassium Chloride 40 MEQ, Lidocaine 1% 2 ML in D5% in Water 500 ML IVPB ONE
[2016-11-03] MEDS: D5% in 0.45% NACL 1,000 ML IVC SCH ×2 (00:15→11:06)
[2016-11-03] MEDS ORDERED: Furosemide 20 MG/2 ML VIAL IVP ONE (01:56)
[2016-11-03 05:22] LABS: Hematocrit 29.6 % (35.3-44.9); Mean Corpuscular HGB Conc 30.4 g/dL (31.6-35.5); Mean Corpuscular Hemoglobin 28.4 pg (28.0-33.3); Mean Corpuscular Volume 93.4 fL (83.0-100.0); Mean Platelet Volume 10.1 fL (9.4-12.4); Platelet Count 265 K/mcL (140-400); Red Blood Count 3.17 M/mcL (3.82-4.97); Red Cell Distribution Width 16.1 % (11.5-14.5)
[2016-11-03] MEDS: Piperacillin/Tazobactam 3.375 GM in D5% in Water (Mini-Bag+) 100 ML IVPB SCH ×2 (05:22→15:31)
[2016-11-03] MEDS: *HR* Enoxaparin 40 MG/0.4 ML SYRINGE SQ SCH (05:30)
[2016-11-03 05:40] LABS: BUN/Creatinine Ratio 22 (6-26); Blood Urea Nitrogen 22 mg/dL (7-20); Carbon Dioxide 23 mEq/L (19-29); Glucose 164 mg/dL (70-99); Magnesium 1.4 mg/dL (1.6-2.6); Osmolality,Calculated 305 (280-300); eGFR For African Americans > 60 (> 60); eGFR For Non-African Americans 52 (> 60)
[2016-11-03 05:44] LABS: Calcium 7.6 mg/dL (8.6-10.8); Chloride 113 mEq/L (98-109); Potassium 3.3 mEq/L (3.5-4.5); Sodium 144 mEq/L (136-145)
--- NOTE | 2016-11-03 08:53 | Internal Med Progress Note ---
Date of Encounter: 11/03/16 Time of Encounter: 08:49 - Assessment and plan (1) Sepsis Current Visit: Yes Status: Acute Assessment and plan: She now meets sepsis criteria based on new fever, tachycardia, tachypnea and a respiratory source Blood cultures were sent yesterday However, she was not febrile on admission, hence will send new blood culture Continue vancomycin and Zosyn for HCAP Send Urine legionella and Strep Ag urine culture is negative now Lactate is normal Her ongoing hypoglycemia may be as a result of sepsis Continue to monitor closely Follow cultures Qualifiers: Sepsis type: sepsis due to unspecified organism Qualified Code(s): A41.9 - Sepsis, unspecified organism (2) Pneumonia Current Visit: Yes Status: Acute Assessment and plan: HCAP, recent hospitalization at [facility] from 10/25-11/01 management as in sepsis above Qualifiers: Pneumonia type: due to unspecified organism Laterality: bilateral Lung location: lower lobe of lung Qualified Code(s): J18.9 - Pneumonia, unspecified organism (3) Decubitus ulcer of right elbow, stage 3 Current Visit: Yes Status: Chronic Assessment and plan: Wound care (4) Essential hypertension Current Visit: Yes Status: Chronic Assessment and plan: Controlled, continue IV lopressor prn, patient is NPO due to risk of aspiration and poor mental status (5) Diabetes mellitus Current Visit: Yes Status: Chronic Assessment and plan: Continue to hole insulin Patient presented with FS of 35 Despite being on d5 drip, her FS have been <180 consistently Will monitor FS q4 now Continue D5W at same rate Qualifiers: Diabetes mellitus type: type 2 Diabetes mellitus complication status: with unspecified complications Diabetes mellitus prison insulin use: with prison use Qualified Code(s): E11.8 - Type 2 diabetes mellitus with unspecified complications; Z79.4 - terminal superintendent (current) use of insulin (6) Hyperlipidemia Current Visit: Yes Status: Chronic Qualifiers: Hyperlipidemia type: unspecified Qualified Code(s): E78.5 - Hyperlipidemia , unspecified (7) Dementia Current Visit: Yes Status: Chronic Qualifiers: Dementia type: unspecified type Dementia behavioral disturbance: with behavioral disturbance Qualified Code(s): F03.91 - Unspecified dementia with behavioral disturbance (8) At risk for aspiration Current Visit: Yes Status: Acute Assessment and plan: Continue NPO (9) Goals of care, counseling/discussion Current Visit: Yes Status: Acute Assessment and plan: Palliative eval appreciated (10) Hypomagnesemia Current Visit: Yes Status: Acute Assessment and plan: Replaced, repeat Chem a.m (11) Hypokalemia Current Visit: Yes Status: Acute Assessment and plan: Replaced, rpt chem a.m (12) Afib Current Visit: Yes Status: Chronic Assessment and plan: Continue lopressor IVP prn HR >100 patient currently unable to take po meds Poor candidate for anticoagulation Qualifiers: Atrial fibrillation type: paroxysmal Qualified Code(s): I48.0 - Paroxysmal atrial fibrillation - Subjective Interval history: 81 Y/O F with many multiple medical co-morbidities including advanced dementia, non-vebral She was just discharged from [facility] 11/01/16 afternoon and referred to SNF. As per the attending d/c summary, patient was managed foe severe sepsis secondary to MRSA and E.coli UTI, associated demand ischemia, lactic acidosis, JUAN. Palliative and medicine had recommended hospice at time of discharge. Patient was brought here from SNF this morning after being found unresponsive and with hypoglycemia She is being managed for hypoglycemia, HCAP, anam Septic She is seen at bedside today no change in mental status She now has a fever but no white count She has Atrial fibrillation that went to RVR during the car shifter, Repeat CXR this morning with airspace disease, more likely pneumonia, rather than pulmonary edema given patient is now febrile - Constitutional Vitals: Afebrile now, Tmax 100.4 0050. HR now controlled, peaked to 135 during the night BP is WNL She is non-verbal at time of review, does not respond to name call She pens her eyes to and locates noxious stimuli, Chest is clear anteriorly, abdomen is soft not tender, she has 1+ edema on both upper and lower extremities. She has a Plummer draining clear urine Temp Pulse Resp BP Pulse Ox 98.4 F 65 14 150/94 98 11/03/16 08:00 11/03/16 08:00 11/03/16 08:00 11/03/16 08:00 11/03/16 08:00 Internal Medicine: Result - Labs CBC & Chem 7: 11/03/16 05:06 11/03/16 05:06 Labs: Short CBC 11/02/16 11/02/16 11/03/16 Range/Units 13:47 22:34 05:06 WBC 12.0 H 10.8 10.7 (4.3-11.1) K/mcL Hgb 9.9 L 9.2 L 9.0 L (11.5-15.4) g/dL Hct 32.7 L 30.8 L 29.6 L (35.3-44.9) % Plt Count 274 281 265 (140-400) K/mcL Neutrophils # 6.3 (1.6-8.9) K/mcL BMP 11/02/16 11/03/16 22:34 05:06 Sodium 146 H 144 Potassium 3.1 L 3.3 L Chloride 114 H 113 H Carbon Dioxide 27 23 BUN 20 22 H Creatinine 0.89 1.01 Glucose 142 H 164 H Calcium 7.4 L 7.6 L - ABG Interpretation ABG results: PT/INR, D-dimer PT 10.2 Seconds (9.4-12.1) 11/01/16 19:31 - Impressions Impressions Chest X-Ray 11/02/16 21:17 IMPRESSION: Stable parenchymal pattern of airspace disease, pulmonary edema more likely than pneumonia. Stable right basilar pleural effusion. D/ / Teo Spence MD / Teo Spence MD Interpreting Provider: Teo Spence MD Consult Discharge Plan - Plan Referrals: Clay Melendez MD [Primary Care Provider] -
[2016-11-03] MEDS ORDERED: amLODIPine 5 MG TABLET PO SCH (09:00)
[2016-11-03] MEDS ORDERED: Magnesium Sulfate 2 GM in D5% in Water 100 ML IVPB ONE (09:07)
--- NOTE | 2016-11-03 09:20 | Electrocardiograph Report ---
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
[2016-11-03] MEDS: Aspirin Enteric Coated 81 MG Tablet PO SCH (09:43)
[2016-11-03] MEDS: predniSONE 10 MG TABLET PO SCH (09:45)
[2016-11-03] MEDS: Metoprolol XL (24 HR) Succ 25 MG TAB.ER.24H PO SCH (09:45)
[2016-11-03] MEDS: Vancomycin 1,250 MG in D5% in Water 250 ML IVPB SCH (11:05)
--- NOTE | 2016-11-03 12:00 | Palliative Progress Note ---
Date of Encounter: 11/03/16 Time of Encounter: 11:15 - Assessment and plan (1) Goals of care, counseling/discussion Current Visit: Yes Status: Acute Assessment and plan: Continue with current plan of care. Discussed case with patient's daughter Teena Dunn). Discussed hospice care and philosophy once again. (2) Mental status change Current Visit: Yes Status: Acute Assessment and plan: Now meet Sepsis criteria. Further management per hospitalist. Qualifiers: Altered mental status type: unspecified Qualified Code(s): R41.82 - Altered mental status, unspecified (3) Pneumonia Current Visit: Yes Status: Acute Qualifiers: Pneumonia type: due to unspecified organism Laterality: bilateral Lung location: lower lobe of lung Qualified Code(s): J18.9 - Pneumonia, unspecified organism - Time Spent With Patient Total time spent is greater than 50% in coordination of care (as documented) at patient's floor/unit and/or counseling patient: - Subjective Interval history: Kelsey Calix is lying in bed. She continues to be unresponsive, but winces and withdraws to tactile stimulation of lower extremities. - Constitutional Vitals: Abnormal lab results RBC 3.17 M/mcL (3.82-4.97) L 11/03/16 05:06 Hgb 9.0 g/dL (11.5-15.4) L 11/03/16 05:06 Hct 29.6 % (35.3-44.9) L 11/03/16 05:06 MCHC 30.4 g/dL (31.6-35.5) L 11/03/16 05:06 RDW 16.1 % (11.5-14.5) H 11/03/16 05:06 Monocytes # 1.5 K/mcL (0.0-1.3) H 11/02/16 13:47 Eosinophils # 0.7 K/mcL (0.0-0.6) H 11/02/16 13:47 Basophilic Stippling 1+ (Not Present) A 11/02/16 13:47 APTT 25.8 Seconds (26.0-36.0) L 11/01/16 19:31 Potassium 3.3 mEq/L (3.5-4.5) L 11/03/16 05:06 Chloride 113 mEq/L (98-109) H 11/03/16 05:06 BUN 22 mg/dL (7-20) H 11/03/16 05:06 Est GFR (Non-Af Amer) 52 (> 60) L 11/03/16 05:06 Glucose 164 mg/dL (70-99) H 11/03/16 05:06 POC Glucose 128 (58-89) H 11/03/16 10:34 Calculated Osmolality 305 (280-300) H 11/03/16 05:06 Calcium 7.6 mg/dL (8.6-10.8) L 11/03/16 05:06 Magnesium 1.4 mg/dL (1.6-2.6) L 11/03/16 05:06 Alkaline Phosphatase 129 Units/L (38-126) H 11/01/16 19:31 Troponin I 0.05 ng/mL (0-0.03) H* 11/01/16 19:31 B-Natriuretic Peptide 457 pg/mL (0-100) H 11/02/16 21:39 Serum Total Protein 5.1 g/dL (6.0-8.3) L 11/01/16 19:31 Albumin 2.0 g/dL (3.5-5.0) L 11/01/16 19:31 Albumin/Globulin Ratio 0.6 (1.1-2.2) L 11/01/16 19:31 Urine Clarity Cloudy (Clear) A 11/01/16 19:39 Urine Protein 30 mg/dL (Neg-Trace) H 11/01/16 19:39 Urine Glucose (UA) 100 mg/dL (Normal) H 11/01/16 19:39 Ur Leukocyte Esterase Small (Negative) H 11/01/16 19:39 Urine Microscopic WBC 15-30 per hpf (0-3) H 11/01/16 19:39 Ur Squamous Epith Cells Many per lpf (None-Few) H 11/01/16 19:39 Urine Yeast Moderate per hpf (None Seen) H 11/01/16 19:39 Ur Culture Indicated? YES (NO) A 11/01/16 19:39 General appearance: Present: no acute distress. Absent: cooperative - Eye Eye exam: Present: PERRL - ENT ENT exam: Present: mucous membranes dry - Respiratory Respiratory exam: Present: decreased breath sounds. Absent: accessory muscle use, respiratory distress - Cardiovascular Cardiovascular exam: Present: RRR - GI/Abdominal GI/Abdominal exam: Present: normal bowel sounds, soft. Absent: distended, guarding, tenderness - Extremities Exam Extremities exam: Present: pedal edema - Expanded Upper Extremity Exam Forearm wrist exam: Present: swelling (weeping) - Neurological Exam Neurological exam: Absent: alert Additional comments: Patient does not follow commands. She withdraws to tactile stimuli to the lower extremities. - Psychiatric Psychiatric exam: Present: flat affect. Absent: agitated, anxious - Skin Skin exam: Present: dry, warm Palliative Quality Palliative Quality: Screen for Code Status: Yes, Screen for Goals of Care: Yes, Screen for Pain: Yes, If Pain Regimen Started, Initiate Bowel Regimen: NA, Screen for Nausea/Vomitting: Yes - Labs CBC & Chem 7: 11/03/16 05:06 11/03/16 05:06 Labs: Laboratory Results - last 24 hr 11/02/16 11/02/16 11/02/16 12:29 12:46 13:47 WBC 12.0 H RBC 3.57 L Hgb 9.9 L Hct 32.7 L MCV 91.6 MCH 27.7 L MCHC 30.3 L RDW 16.0 H Plt Count 274 MPV 10.3 Immature Gran % 1.2 Seg Neutrophils % 52.5 Lymphocytes % 28.4 Monocytes % 12.2 Eosinophils % 5.4 Basophils % 0.3 Neutrophils # 6.3 Lymphocytes # 3.4 Monocytes # 1.5 H Eosinophils # 0.7 H Basophils # 0.0 Platelet Estimate Normal Basophilic Stippling 1+ A Sodium Potassium Chloride Carbon Dioxide BUN Creatinine Est GFR ( Amer) Est GFR (Non-Af Amer) BUN/Creatinine Ratio Glucose POC Glucose 133 H Calculated Osmolality Lactic Acid Calcium Magnesium B-Natriuretic Peptide TSH Specimen Rejected Clotted 11/02/16 11/02/16 11/02/16 14:01 15:11 16:53 WBC RBC Hgb Hct MCV MCH MCHC RDW Plt Count MPV Immature Gran % Seg Neutrophils % Lymphocytes % Monocytes % Eosinophils % Basophils % Neutrophils # Lymphocytes # Monocytes # Eosinophils # Basophils # Platelet Estimate Basophilic Stippling Sodium Potassium Chloride Carbon Dioxide BUN Creatinine Est GFR ( Amer) Est GFR (Non-Af Amer) BUN/Creatinine Ratio Glucose POC Glucose 120 H 126 H 150 H Calculated Osmolality Lactic Acid Calcium Magnesium B-Natriuretic Peptide TSH Specimen Rejected 11/02/16 11/02/16 11/02/16 17:52 18:43 19:49 WBC RBC Hgb Hct MCV MCH MCHC RDW Plt Count MPV Immature Gran % Seg Neutrophils % Lymphocytes % Monocytes % Eosinophils % Basophils % Neutrophils # Lymphocytes # Monocytes # Eosinophils # Basophils # Platelet Estimate Basophilic Stippling Sodium Potassium Chloride Carbon Dioxide BUN Creatinine Est GFR ( Amer) Est GFR (Non-Af Amer) BUN/Creatinine Ratio Glucose POC Glucose 157 H 154 H 159 H Calculated Osmolality Lactic Acid Calcium Magnesium B-Natriuretic Peptide TSH Specimen Rejected 11/02/16 11/02/16 11/02/16 20:02 21:39 22:34 WBC 10.8 RBC 3.31 L Hgb 9.2 L Hct 30.8 L MCV 93.1 MCH 27.8 L MCHC 29.9 L RDW 16.1 H Plt Count 281 MPV 9.8 Immature Gran % Seg Neutrophils % Lymphocytes % Monocytes % Eosinophils % Basophils % Neutrophils # Lymphocytes # Monocytes # Eosinophils # Basophils # Platelet Estimate Basophilic Stippling Sodium Potassium Chloride Carbon Dioxide BUN Creatinine Est GFR ( Amer) Est GFR (Non-Af Amer) BUN/Creatinine Ratio Glucose POC Glucose Calculated Osmolality Lactic Acid 1.0 Calcium Magnesium B-Natriuretic Peptide 457 H TSH Specimen Rejected 11/02/16 11/03/16 11/03/16 22:34 05:06 05:06 WBC 10.7 RBC 3.17 L Hgb 9.0 L Hct 29.6 L MCV 93.4 MCH 28.4 MCHC 30.4 L RDW 16.1 H Plt Count 265 MPV 10.1 Immature Gran % Seg Neutrophils % Lymphocytes % Monocytes % Eosinophils % Basophils % Neutrophils # Lymphocytes # Monocytes # Eosinophils # Basophils # Platelet Estimate Basophilic Stippling Sodium 146 H 144 Potassium 3.1 L 3.3 L Chloride 114 H 113 H Carbon Dioxide 27 23 BUN 20 22 H Creatinine 0.89 1.01 Est GFR ( Amer) > 60 > 60 Est GFR (Non-Af Amer) > 60 52 L BUN/Creatinine Ratio 22 22 Glucose 142 H 164 H POC Glucose Calculated Osmolality 307 H 305 H Lactic Acid Calcium 7.4 L 7.6 L Magnesium 1.8 1.4 L B-Natriuretic Peptide TSH 1.300 Specimen Rejected 11/03/16 11/03/16 07:01 10:34 WBC RBC Hgb Hct MCV MCH MCHC RDW Plt Count MPV Immature Gran % Seg Neutrophils % Lymphocytes % Monocytes % Eosinophils % Basophils % Neutrophils # Lymphocytes # Monocytes # Eosinophils # Basophils # Platelet Estimate Basophilic Stippling Sodium Potassium Chloride Carbon Dioxide BUN Creatinine Est GFR ( Amer) Est GFR (Non-Af Amer) BUN/Creatinine Ratio Glucose POC Glucose 182 H 128 H Calculated Osmolality Lactic Acid Calcium Magnesium B-Natriuretic Peptide TSH Specimen Rejected - Impressions Impressions Chest X-Ray 11/02/16 21:17 IMPRESSION: Stable parenchymal pattern of airspace disease, pulmonary edema more likely than pneumonia. Stable right basilar pleural effusion. D/ / Teo Spence MD / Teo Spence MD Interpreting Provider: Teo Spence MD - ABG Interpretation ABG results: PT/INR, D-dimer PT 10.2 Seconds (9.4-12.1) 11/01/16 19:31 Consult Discharge Plan - Plan Referrals: Clay Melendez MD [Primary Care Provider] -
--- NOTE | 2016-11-03 18:35 | Electrocardiograph Report ---
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
--- NOTE | 2016-11-03 18:46 | Electrocardiograph Report ---
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
[2016-11-04] MEDS: Piperacillin/Tazobactam 3.375 GM in D5% in Water (Mini-Bag+) 100 ML IVPB SCH ×3 (00:13→16:53)
[2016-11-04] MEDS: D5% in 0.45% NACL 1,000 ML IVC SCH (02:43)
[2016-11-04 04:46] LABS: Basophils % 0.3 %; Eosinophils # 0.5 K/mcL (0.0-0.6); Eosinophils % 4.8 %; Hematocrit 29.7 % (35.3-44.9); Immature Granulocytes % 0.8 % (0-4); Lymphocytes # 2.3 K/mcL (0.6-4.6); Mean Corpuscular HGB Conc 30.3 g/dL (31.6-35.5); Mean Corpuscular Hemoglobin 27.6 pg (28.0-33.3); Mean Corpuscular Volume 91.1 fL (83.0-100.0); Mean Platelet Volume 9.8 fL (9.4-12.4); Monocytes # 1.4 K/mcL (0.0-1.3); Monocytes % 12.5 %; Neutrophils # 6.6 K/mcL (1.6-8.9); Platelet Count 267 K/mcL (140-400); Red Blood Count 3.26 M/mcL (3.82-4.97); Red Cell Distribution Width 15.9 % (11.5-14.5); Segmented Neutrophils % 60.6 %
[2016-11-04 05:03] LABS: Calcium 7.4 mg/dL (8.6-10.8); Magnesium 1.6 mg/dL (1.6-2.6); Potassium 3.5 mEq/L (3.5-4.5)
[2016-11-04] MEDS: *HR* Enoxaparin 40 MG/0.4 ML SYRINGE SQ SCH (05:33)
[2016-11-04] MEDS: predniSONE 10 MG TABLET PO SCH (08:37)
[2016-11-04] MEDS: Aspirin Enteric Coated 81 MG Tablet PO SCH (08:37)
[2016-11-04] MEDS: Metoprolol XL (24 HR) Succ 25 MG TAB.ER.24H PO SCH (08:37)
[2016-11-04] MEDS: Vancomycin 1,250 MG in D5% in Water 250 ML IVPB SCH (10:33)
[2016-11-04] MEDS ORDERED: Vancomycin 1 EACH in D5% in Water 250 ML IVPB PRN (11:00)
--- NOTE | 2016-11-04 13:51 | Internal Med Progress Note ---
Date of Encounter: 11/04/16 Time of Encounter: 10:15 - Assessment and plan (1) Pneumonia Current Visit: Yes Status: Acute Assessment and plan: Cultures have been negative so far. Continue Zosyn and vancomycin for now. Moderate risk for complications. Qualifiers: Pneumonia type: due to unspecified organism Laterality: bilateral Lung location: lower lobe of lung Qualified Code(s): J18.9 - Pneumonia, unspecified organism (2) Sepsis Current Visit: Yes Status: Acute Assessment and plan: No organism identified. Likely related to pneumonia. WBC count remains normal. No longer having fever. Qualifiers: Sepsis type: sepsis due to unspecified organism Qualified Code(s): A41.9 - Sepsis, unspecified organism (3) Afib Current Visit: Yes Status: Chronic Assessment and plan: Rate controlled. Qualifiers: Atrial fibrillation type: paroxysmal Qualified Code(s): I48.0 - Paroxysmal atrial fibrillation (4) At risk for aspiration Current Visit: Yes Status: Acute Assessment and plan: Nothing by mouth (5) Decubitus ulcer of right elbow, stage 3 Current Visit: Yes Status: Chronic Assessment and plan: Continue local wound care (6) Dementia Current Visit: Yes Status: Chronic Assessment and plan: With altered mental status. Overall poor prognosis. Palliative care following. 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 Palliative care following to see if family more willing for hospice/comfort care (10) Hyperlipidemia Current Visit: Yes Status: Chronic Assessment and plan: On Lipitor but patient not taking any by mouth medications Qualifiers: Hyperlipidemia type: unspecified Qualified Code(s): E78.5 - Hyperlipidemia , unspecified (11) Hypokalemia Current Visit: Yes Status: Acute Assessment and plan: Improved with replacement (12) Hypomagnesemia Current Visit: Yes Status: Acute Assessment and plan: Improved with replacement - Subjective Interval history: Patient is currently lying in bed. Not responding to questions. Awakes to sternal rub but not following any commands. - Constitutional Vitals: Temp Pulse Resp BP Pulse Ox 98.6 F 92 18 118/67 96 11/04/16 11:38 11/04/16 11:38 11/04/16 11:38 11/04/16 11:38 11/04/16 11:38 General appearance: Absent: answers questions appropriately Exam: Somnolent. Awakes to sternal rub but not does not follow questions. - Respiratory Respiratory exam: Present: CTAB. Absent: accessory muscle use, rales, rhonchi, wheezes - Cardiovascular Cardiovascular exam: Present: RRR, +S1, +S2. Absent: diastolic murmur, gallop, rubs, systolic murmur - GI/Abdominal GI/Abdominal exam: Present: normal bowel sounds, soft, no peritoneal signs. Absent: distended, tenderness - Extremities Exam Extremities exam: Present: warm, radial pulses palpable and symetrical. Absent : calf tenderness, cyanotic, pedal edema - Neurological Exam Additional comments: Unable to assess - Skin Skin exam: Present: dry, intact Internal Medicine: Result - Labs CBC & Chem 7: 11/04/16 04:21 11/04/16 04:21 Labs: Short CBC 11/04/16 Range/Units 04:21 WBC 10.9 (4.3-11.1) K/mcL Hgb 9.0 L (11.5-15.4) g/dL Hct 29.7 L (35.3-44.9) % Plt Count 267 (140-400) K/mcL Neutrophils # 6.6 (1.6-8.9) K/mcL BMP 11/04/16 04:21 Sodium 140 Potassium 3.5 Chloride 110 H Carbon Dioxide 24 BUN 20 Creatinine 1.28 H Glucose 118 H Calcium 7.4 L - ABG Interpretation ABG results: PT/INR, D-dimer PT 10.2 Seconds (9.4-12.1) 11/01/16 19:31 Consult Discharge Plan - Plan Referrals: Clay Melendez MD [Primary Care Provider] - - Attending Attestation This document has been at least partially created by [employer] recognition technology by Dr. Can. Errors in grammar, wording or other phrases may exist. If errors are found after the documentation is signed, they will be addressed individually in the addendum section of this document when appropriate.
--- NOTE | 2016-11-04 16:18 | Palliative Progress Note ---
Date of Encounter: 11/04/16 Time of Encounter: 16:15 - Assessment and plan (1) Goals of care, counseling/discussion Current Visit: Yes Status: Acute Assessment and plan: In-depth discussion with the patient's daughters-Sukumar-regarding goals of care. Discussed nutritional support. Both daughters declined tube feeding or NG tube placement. Discussed plan of care. At this time, the patient's children support comfort care status. Will continue with antibiotic coverage. Family meeting planned for 4:00 PM on 11/05/2016 with [facility] hospice services. Family requested [facility] hospice as the patient has been in [facility] and has met with them in the past. CODE STATUS adjusted to reflect current goals of care. The palliative care team will continue to follow. (2) Mental status change Current Visit: Yes Status: Acute Assessment and plan: Goal is comfort care, plan for further family meetings tomorrow. Qualifiers: Altered mental status type: unspecified Qualified Code(s): R41.82 - Altered mental status, unspecified (3) Pneumonia Current Visit: Yes Status: Acute Assessment and plan: Continue with ATB treatment per hospitalist. Qualifiers: Pneumonia type: due to unspecified organism Laterality: bilateral Lung location: lower lobe of lung Qualified Code(s): J18.9 - Pneumonia, unspecified organism - Time Spent With Patient Total time spent is greater than 50% in coordination of care (as documented) at patient's floor/unit and/or counseling patient: - Subjective Interval history: Kelsey Calix is lying in bed. She continues to be unresponsive, but winces and withdraws to tactile stimulation of lower extremities, and opens eyes on rare occasion - Constitutional Vitals: Abnormal lab results RBC 3.26 M/mcL (3.82-4.97) L 11/04/16 04:21 Hgb 9.0 g/dL (11.5-15.4) L 11/04/16 04:21 Hct 29.7 % (35.3-44.9) L 11/04/16 04:21 MCH 27.6 pg (28.0-33.3) L 11/04/16 04:21 MCHC 30.3 g/dL (31.6-35.5) L 11/04/16 04:21 RDW 15.9 % (11.5-14.5) H 11/04/16 04:21 Monocytes # 1.4 K/mcL (0.0-1.3) H 11/04/16 04:21 Basophilic Stippling 1+ (Not Present) A 11/02/16 13:47 APTT 25.8 Seconds (26.0-36.0) L 11/01/16 19:31 Chloride 110 mEq/L (98-109) H 11/04/16 04:21 Creatinine 1.28 mg/dL (0.57-1.11) H 11/04/16 04:21 Est GFR ( Amer) 48 (> 60) L 11/04/16 04:21 Est GFR (Non-Af Amer) 40 (> 60) L 11/04/16 04:21 Glucose 118 mg/dL (70-99) H 11/04/16 04:21 POC Glucose 102 (58-89) H 11/04/16 11:12 Calcium 7.4 mg/dL (8.6-10.8) L 11/04/16 04:21 Alkaline Phosphatase 129 Units/L (38-126) H 11/01/16 19:31 Troponin I 0.05 ng/mL (0-0.03) H* 11/01/16 19:31 B-Natriuretic Peptide 457 pg/mL (0-100) H 11/02/16 21:39 Serum Total Protein 5.1 g/dL (6.0-8.3) L 11/01/16 19:31 Albumin 2.0 g/dL (3.5-5.0) L 11/01/16 19:31 Albumin/Globulin Ratio 0.6 (1.1-2.2) L 11/01/16 19:31 Urine Clarity Cloudy (Clear) A 11/01/16 19:39 Urine Protein 30 mg/dL (Neg-Trace) H 11/01/16 19:39 Urine Glucose (UA) 100 mg/dL (Normal) H 11/01/16 19:39 Ur Leukocyte Esterase Small (Negative) H 11/01/16 19:39 Urine Microscopic WBC 15-30 per hpf (0-3) H 11/01/16 19:39 Ur Squamous Epith Cells Many per lpf (None-Few) H 11/01/16 19:39 Urine Yeast Moderate per hpf (None Seen) H 11/01/16 19:39 Ur Culture Indicated? YES (NO) A 11/01/16 19:39 Vancomycin Trough 24.9 mcg/mL (10-20) H* 11/04/16 09:52 General appearance: Present: no acute distress. Absent: cooperative - Eye Pupils: Present: PERRL (does not track or keep eyes open long enough to evaluate ) - Respiratory Respiratory exam: Present: accessory muscle use, rhonchi, tachypnea. Absent: respiratory distress - Expanded Respiratory Exam Location: rhonchi: Left, Right, Upper - Cardiovascular Cardiovascular exam: Present: RRR - GI/Abdominal GI/Abdominal exam: Present: hypoactive bowel sounds, soft. Absent: distended, firm, guarding, tenderness - Additional comments: waldron catheter intact - Extremities Exam Extremities exam: Present: pedal edema - Neurological Exam Neurological exam: Absent: alert Additional comments: Patient opens eyes on rare occasions, but not to command. Does not follow commands. - Psychiatric Psychiatric exam: Present: flat affect (poor eye contact). Absent: agitated, anxious - Skin Skin exam: Present: dry, warm Palliative Quality Palliative Quality: Screen for Code Status: Yes, Screen for Goals of Care: Yes, Screen for Pain: Yes, If Pain Regimen Started, Initiate Bowel Regimen: NA, Screen for Nausea/Vomitting: Yes Code Status: 11/02/16 09:13 Resuscitation Status: Active [RES] Routine Comment: Resuscitation Status: [id number] Resuscitation Status: Active [RES] Routine Comment: Resuscitation Status: DNR-Comfort Care - Labs CBC & Chem 7: 11/04/16 04:21 11/04/16 04:21 Labs: Laboratory Results - last 24 hr 11/02/16 11/02/16 11/02/16 21:13 22:23 23:45 WBC RBC Hgb Hct MCV MCH MCHC RDW Plt Count MPV Immature Gran % Seg Neutrophils % Lymphocytes % Monocytes % Eosinophils % Basophils % Neutrophils # Lymphocytes # Monocytes # Eosinophils # Basophils # Sodium Potassium Chloride Carbon Dioxide BUN Creatinine Est GFR ( Amer) Est GFR (Non-Af Amer) BUN/Creatinine Ratio Glucose POC Glucose 123 H 147 H 117 H Calculated Osmolality Calcium Magnesium Ammonia Vancomycin Trough 11/03/16 11/03/16 11/03/16 00:44 03:14 04:33 WBC RBC Hgb Hct MCV MCH MCHC RDW Plt Count MPV Immature Gran % Seg Neutrophils % Lymphocytes % Monocytes % Eosinophils % Basophils % Neutrophils # Lymphocytes # Monocytes # Eosinophils # Basophils # Sodium Potassium Chloride Carbon Dioxide BUN Creatinine Est GFR ( Amer) Est GFR (Non-Af Amer) BUN/Creatinine Ratio Glucose POC Glucose 122 H 148 H 154 H Calculated Osmolality Calcium Magnesium Ammonia Vancomycin Trough 11/03/16 11/03/16 11/04/16 05:43 16:19 04:21 WBC 10.9 RBC 3.26 L Hgb 9.0 L Hct 29.7 L MCV 91.1 MCH 27.6 L MCHC 30.3 L RDW 15.9 H Plt Count 267 MPV 9.8 Immature Gran % 0.8 Seg Neutrophils % 60.6 Lymphocytes % 21.0 Monocytes % 12.5 Eosinophils % 4.8 Basophils % 0.3 Neutrophils # 6.6 Lymphocytes # 2.3 Monocytes # 1.4 H Eosinophils # 0.5 Basophils # 0.0 Sodium Potassium Chloride Carbon Dioxide BUN Creatinine Est GFR ( Amer) Est GFR (Non-Af Amer) BUN/Creatinine Ratio Glucose POC Glucose 150 H 122 H Calculated Osmolality Calcium Magnesium Ammonia Vancomycin Trough 11/04/16 11/04/16 11/04/16 04:21 07:16 09:52 WBC RBC Hgb Hct MCV MCH MCHC RDW Plt Count MPV Immature Gran % Seg Neutrophils % Lymphocytes % Monocytes % Eosinophils % Basophils % Neutrophils # Lymphocytes # Monocytes # Eosinophils # Basophils # Sodium 140 Potassium 3.5 Chloride 110 H Carbon Dioxide 24 BUN 20 Creatinine 1.28 H Est GFR ( Amer) 48 L Est GFR (Non-Af Amer) 40 L BUN/Creatinine Ratio 16 Glucose 118 H POC Glucose 111 H Calculated Osmolality 294 Calcium 7.4 L Magnesium 1.6 Ammonia Vancomycin Trough 24.9 H* 11/04/16 11/04/16 11:12 14:32 WBC RBC Hgb Hct MCV MCH MCHC RDW Plt Count MPV Immature Gran % Seg Neutrophils % Lymphocytes % Monocytes % Eosinophils % Basophils % Neutrophils # Lymphocytes # Monocytes # Eosinophils # Basophils # Sodium Potassium Chloride Carbon Dioxide BUN Creatinine Est GFR ( Amer) Est GFR (Non-Af Amer) BUN/Creatinine Ratio Glucose POC Glucose 102 H Calculated Osmolality Calcium Magnesium Ammonia 27 Vancomycin Trough - ABG Interpretation ABG results: PT/INR, D-dimer PT 10.2 Seconds (9.4-12.1) 11/01/16 19:31 Consult Discharge Plan - Plan Referrals: Clay Melendez MD [Primary Care Provider] -
[2016-11-05] MEDS: Piperacillin/Tazobactam 3.375 GM in D5% in Water (Mini-Bag+) 100 ML IVPB SCH ×3 (00:16→15:55)
[2016-11-05 05:12] LABS: Basophils % 0.3 %; Eosinophils # 0.4 K/mcL (0.0-0.6); Eosinophils % 4.1 %; Hematocrit 30.6 % (35.3-44.9); Hemoglobin 9.3 g/dL (11.5-15.4); Immature Granulocytes % 0.8 % (0-4); Lymphocytes # 2.3 K/mcL (0.6-4.6); Lymphocytes % 21.7 %; Mean Corpuscular HGB Conc 30.4 g/dL (31.6-35.5); Mean Corpuscular Hemoglobin 27.6 pg (28.0-33.3); Mean Corpuscular Volume 90.8 fL (83.0-100.0); Mean Platelet Volume 10.1 fL (9.4-12.4); Monocytes # 1.3 K/mcL (0.0-1.3); Monocytes % 12.8 %; Neutrophils # 6.3 K/mcL (1.6-8.9); Platelet Count 260 K/mcL (140-400); Red Blood Count 3.37 M/mcL (3.82-4.97); Red Cell Distribution Width 15.9 % (11.5-14.5); Segmented Neutrophils % 60.3 %
[2016-11-05 05:28] LABS: Calcium 7.2 mg/dL (8.6-10.8); Potassium 3.3 mEq/L (3.5-4.5)
[2016-11-05] MEDS: *HR* Enoxaparin 30 MG/0.3 ML SYRINGE SQ SCH (05:39)
[2016-11-05] MEDS: Aspirin Enteric Coated 81 MG Tablet PO SCH (07:17)
[2016-11-05] MEDS: predniSONE 10 MG TABLET PO SCH (07:18)
[2016-11-05] MEDS: Metoprolol XL (24 HR) Succ 25 MG TAB.ER.24H PO SCH (07:18)
[2016-11-05] MEDS ORDERED: Vancomycin 500 MG in D5% in Water (Mini-Bag+) 100 ML IVPB ONE (09:00)
[2016-11-05] MEDS ORDERED: *HR* LORazepam 2 MG/ML VIAL IVP PRN (09:28)
--- NOTE | 2016-11-05 09:34 | Palliative Progress Note ---
Date of Encounter: 11/05/16 Time of Encounter: 09:00 - Assessment and plan (1) Goals of care, counseling/discussion Current Visit: Yes Status: Acute Assessment and plan: Patient daughter Joelle at bedside. Plan is to meet with [facility] hosp[facility] care today at 4pm. All adult children to attend meeting. I further discussed the goals of hospice care and Joelle reports wanting to take patient home to live with her but she is just not sure of her ability to do that since patient is not mobile. I discussed respite days for hospice care. Will await outcome from meeting and discuss POC once family has been better informed of [facility] care. (2) Mental status change Current Visit: Yes Status: Acute Assessment and plan: Patient sleepiing calmly with eyes closed. Daughter reports patient has dementia and light form of Sundowners and is up most of the night and sleeps all day. Patient without moaning or grimacing on exam. Resting well. Daughter questioned medications. We discussed Seroquel and daughter states that patient had not been taking that. I DC'd per family report. Patient taking limited po intake. Qualifiers: Altered mental status type: unspecified Qualified Code(s): R41.82 - Altered mental status, unspecified (3) Pneumonia Current Visit: Yes Status: Acute Assessment and plan: ATB per medicine plan. Qualifiers: Pneumonia type: due to unspecified organism Laterality: bilateral Lung location: lower lobe of lung Qualified Code(s): J18.9 - Pneumonia, unspecified organism - Time Spent With Patient Total time spent is greater than 50% in coordination of care (as documented) at patient's floor/unit and/or counseling patient: - Subjective Interval history: Patient sleeping calmly. Opens eyes slowly to name. Daughter Joelle at bedside. Patient chart reviewed and daughter reports that patient has slowly declined in her ability to function and participate in rehab. Patient currently bed bound and not walking. - Constitutional Vitals: Abnormal lab results RBC 3.37 M/mcL (3.82-4.97) L 11/05/16 04:41 Hgb 9.3 g/dL (11.5-15.4) L 11/05/16 04:41 Hct 30.6 % (35.3-44.9) L 11/05/16 04:41 MCH 27.6 pg (28.0-33.3) L 11/05/16 04:41 MCHC 30.4 g/dL (31.6-35.5) L 11/05/16 04:41 RDW 15.9 % (11.5-14.5) H 11/05/16 04:41 Basophilic Stippling 1+ (Not Present) A 11/02/16 13:47 APTT 25.8 Seconds (26.0-36.0) L 11/01/16 19:31 Potassium 3.3 mEq/L (3.5-4.5) L 11/05/16 04:41 Creatinine 1.28 mg/dL (0.57-1.11) H 11/05/16 04:41 Est GFR ( Amer) 48 (> 60) L 11/05/16 04:41 Est GFR (Non-Af Amer) 40 (> 60) L 11/05/16 04:41 Calcium 7.2 mg/dL (8.6-10.8) L 11/05/16 04:41 Alkaline Phosphatase 129 Units/L (38-126) H 11/01/16 19:31 Troponin I 0.05 ng/mL (0-0.03) H* 11/01/16 19:31 B-Natriuretic Peptide 457 pg/mL (0-100) H 11/02/16 21:39 Serum Total Protein 5.1 g/dL (6.0-8.3) L 11/01/16 19:31 Albumin 2.0 g/dL (3.5-5.0) L 11/01/16 19:31 Albumin/Globulin Ratio 0.6 (1.1-2.2) L 11/01/16 19:31 Urine Clarity Cloudy (Clear) A 11/01/16 19:39 Urine Protein 30 mg/dL (Neg-Trace) H 11/01/16 19:39 Urine Glucose (UA) 100 mg/dL (Normal) H 11/01/16 19:39 Ur Leukocyte Esterase Small (Negative) H 11/01/16 19:39 Urine Microscopic WBC 15-30 per hpf (0-3) H 11/01/16 19:39 Ur Squamous Epith Cells Many per lpf (None-Few) H 11/01/16 19:39 Urine Yeast Moderate per hpf (None Seen) H 11/01/16 19:39 Ur Culture Indicated? YES (NO) A 11/01/16 19:39 General appearance: Present: cooperative, no acute distress - Head Head exam: Present: atraumatic, normal inspection, normocephalic - Eye Eye exam: Present: PERRL - ENT ENT exam: Present: mucous membranes moist - Neck Neck exam: Present: normal inspection - Respiratory Respiratory exam: Present: decreased breath sounds - Expanded Respiratory Exam Location: decreased breath sounds: Left, Right, Lower - Cardiovascular Cardiovascular exam: Present: +S1, +S2 - GI/Abdominal GI/Abdominal exam: Present: normal bowel sounds, soft (Plummer draining clear yellow urine. ) - Rectal Rectal exam: Present: deferred - Back Exam Back exam: Present: vertebral tenderness - Neurological Exam Neurological exam: Present: altered (sleeping and opens eyes at times) - Psychiatric Psychiatric exam: Present: normal affect, normal mood - Skin Skin exam: Present: intact Palliative Quality Palliative Quality: Screen for Code Status: Yes, Screen for Goals of Care: Yes, Screen for Pain: Yes, If Pain Regimen Started, Initiate Bowel Regimen: NA, Screen for Nausea/Vomitting: Yes Code Status: 11/02/16 09:13 Resuscitation Status: Active [RES] Routine Comment: Resuscitation Status: [id number] Resuscitation Status: Active [RES] Routine Comment: Resuscitation Status: DNR-Comfort Care - Labs CBC & Chem 7: 11/05/16 04:41 11/05/16 04:41 Labs: Laboratory Results - last 24 hr 11/03/16 11/03/16 11/04/16 19:02 23:32 04:02 WBC RBC Hgb Hct MCV MCH MCHC RDW Plt Count MPV Immature Gran % Seg Neutrophils % Lymphocytes % Monocytes % Eosinophils % Basophils % Neutrophils # Lymphocytes # Monocytes # Eosinophils # Basophils # Sodium Potassium Chloride Carbon Dioxide BUN Creatinine Est GFR ( Amer) Est GFR (Non-Af Amer) BUN/Creatinine Ratio Glucose POC Glucose 151 H 107 H 144 H Calculated Osmolality Calcium Ammonia Vancomycin Trough 11/04/16 11/04/16 11/04/16 09:52 11:12 14:32 WBC RBC Hgb Hct MCV MCH MCHC RDW Plt Count MPV Immature Gran % Seg Neutrophils % Lymphocytes % Monocytes % Eosinophils % Basophils % Neutrophils # Lymphocytes # Monocytes # Eosinophils # Basophils # Sodium Potassium Chloride Carbon Dioxide BUN Creatinine Est GFR ( Amer) Est GFR (Non-Af Amer) BUN/Creatinine Ratio Glucose POC Glucose 102 H Calculated Osmolality Calcium Ammonia 27 Vancomycin Trough 24.9 H* 11/04/16 11/05/16 11/05/16 15:42 00:15 04:41 WBC RBC Hgb Hct MCV MCH MCHC RDW Plt Count MPV Immature Gran % Seg Neutrophils % Lymphocytes % Monocytes % Eosinophils % Basophils % Neutrophils # Lymphocytes # Monocytes # Eosinophils # Basophils # Sodium Potassium Chloride Carbon Dioxide BUN Creatinine Est GFR ( Amer) Est GFR (Non-Af Amer) BUN/Creatinine Ratio Glucose POC Glucose 113 H 74 Calculated Osmolality Calcium Ammonia Vancomycin Trough 19.8 11/05/16 11/05/16 04:41 04:41 WBC 10.4 RBC 3.37 L Hgb 9.3 L Hct 30.6 L MCV 90.8 MCH 27.6 L MCHC 30.4 L RDW 15.9 H Plt Count 260 MPV 10.1 Immature Gran % 0.8 Seg Neutrophils % 60.3 Lymphocytes % 21.7 Monocytes % 12.8 Eosinophils % 4.1 Basophils % 0.3 Neutrophils # 6.3 Lymphocytes # 2.3 Monocytes # 1.3 Eosinophils # 0.4 Basophils # 0.0 Sodium 139 Potassium 3.3 L Chloride 109 Carbon Dioxide 25 BUN 18 Creatinine 1.28 H Est GFR ( Amer) 48 L Est GFR (Non-Af Amer) 40 L BUN/Creatinine Ratio 14 Glucose 87 POC Glucose Calculated Osmolality 289 Calcium 7.2 L Ammonia Vancomycin Trough - ABG Interpretation ABG results: PT/INR, D-dimer PT 10.2 Seconds (9.4-12.1) 11/01/16 19:31 Consult Discharge Plan - Plan Referrals: Clay Melendez MD [Primary Care Provider] -
--- NOTE | 2016-11-05 09:38 | Internal Med Progress Note ---
Date of Encounter: 11/05/16 Time of Encounter: 08:45 - Assessment and plan (1) Pneumonia Current Visit: Yes Status: Acute Assessment and plan: Continuing IV antibiotics for now. Patient is being transitioned to hospice. Continue IV antibiotics for now per family wishes. Qualifiers: Pneumonia type: due to unspecified organism Laterality: bilateral Lung location: lower lobe of lung Qualified Code(s): J18.9 - Pneumonia, unspecified organism (2) Sepsis Current Visit: Yes Status: Acute Assessment and plan: No organism identified. From pneumonia. Qualifiers: Sepsis type: sepsis due to unspecified organism Qualified Code(s): A41.9 - Sepsis, unspecified organism (3) Afib Current Visit: Yes Status: Chronic Assessment and plan: Rate controlled Qualifiers: Atrial fibrillation type: paroxysmal Qualified Code(s): I48.0 - Paroxysmal atrial fibrillation (4) At risk for aspiration Current Visit: Yes Status: Acute Assessment and plan: Remains nothing by mouth (5) Decubitus ulcer of right elbow, stage 3 Current Visit: Yes Status: Chronic Assessment and plan: Continue local wound care (6) Dementia Current Visit: Yes Status: Chronic Assessment and plan: Overall poor prognosis given patient's comorbidities and underlying dementia. Palliative care following Qualifiers: Dementia type: unspecified type Dementia behavioral disturbance: with behavioral disturbance Qualified Code(s): F03.91 - Unspecified dementia with behavioral disturbance (7) Diabetes mellitus Current Visit: Yes Status: Chronic Assessment and plan: Well-controlled Qualifiers: Diabetes mellitus type: type 2 Diabetes mellitus complication status: with unspecified complications Diabetes mellitus terminal gauger insulin use: with usp use Qualified Code(s): E11.8 - Type 2 diabetes mellitus with unspecified complications; Z79.4 - [facility] (current) use of insulin (8) Essential hypertension Current Visit: Yes Status: Chronic Assessment and plan: Well-controlled (9) Goals of care, counseling/discussion Current Visit: Yes Status: Acute (10) Hyperlipidemia Current Visit: Yes Status: Chronic Qualifiers: Hyperlipidemia type: unspecified Qualified Code(s): E78.5 - Hyperlipidemia , unspecified (11) Hypokalemia Current Visit: Yes Status: Acute Assessment and plan: Potassium 3.3 today. Stopped IV fluids per family wishes. We will stop checking labs for now. (12) Hypomagnesemia Current Visit: Yes Status: Acute - Subjective Interval history: Patient remains poorly responsive. Lying in bed. Appears comfortable. Breathing well on her own. - Constitutional Vitals: Temp Pulse Resp BP Pulse Ox 98.8 F 99 18 133/72 96 11/04/16 19:17 11/04/16 19:17 11/04/16 19:17 11/04/16 19:17 11/04/16 19:17 General appearance: Absent: answers questions appropriately Exam: Somnolent. Difficult to awake. Opens eyes intermittently. Does not follow commands. - Respiratory Respiratory exam: Present: CTAB. Absent: accessory muscle use, rales, rhonchi, wheezes - Cardiovascular Cardiovascular exam: Present: RRR, +S1, +S2. Absent: diastolic murmur, gallop, rubs, systolic murmur - GI/Abdominal GI/Abdominal exam: Present: normal bowel sounds, soft, no peritoneal signs. Absent: distended, tenderness - Extremities Exam Extremities exam: Present: warm, radial pulses palpable and symetrical. Absent : calf tenderness, cyanotic, pedal edema - Neurological Exam Neurological exam: Absent: facial droop Additional comments: Unable to complete neuro exam due to patient's poor responsiveness - Skin Skin exam: Present: dry, intact Internal Medicine: Result - Labs CBC & Chem 7: 11/05/16 04:41 11/05/16 04:41 Labs: Short CBC 11/05/16 Range/Units 04:41 WBC 10.4 (4.3-11.1) K/mcL Hgb 9.3 L (11.5-15.4) g/dL Hct 30.6 L (35.3-44.9) % Plt Count 260 (140-400) K/mcL Neutrophils # 6.3 (1.6-8.9) K/mcL BMP 11/05/16 04:41 Sodium 139 Potassium 3.3 L Chloride 109 Carbon Dioxide 25 BUN 18 Creatinine 1.28 H Glucose 87 Calcium 7.2 L - ABG Interpretation ABG results: PT/INR, D-dimer PT 10.2 Seconds (9.4-12.1) 11/01/16 19:31 Consult Discharge Plan - Plan Referrals: Clay Melendez MD [Primary Care Provider] - - Attending Attestation This document has been at least partially created by [employer] recognition technology by Dr. Can. Errors in grammar, wording or other phrases may exist. If errors are found after the documentation is signed, they will be addressed individually in the addendum section of this document when appropriate.
[2016-11-06] MEDS: Piperacillin/Tazobactam 3.375 GM in D5% in Water (Mini-Bag+) 100 ML IVPB SCH ×3 (03:51→17:44)
[2016-11-06] MEDS: *HR* Enoxaparin 30 MG/0.3 ML SYRINGE SQ SCH (05:32)
[2016-11-06] MEDS: Aspirin Enteric Coated 81 MG Tablet PO SCH (08:01)
[2016-11-06] MEDS: predniSONE 10 MG TABLET PO SCH (08:02)
[2016-11-06] MEDS: Metoprolol XL (24 HR) Succ 25 MG TAB.ER.24H PO SCH (08:02)
--- NOTE | 2016-11-06 10:28 | Palliative Progress Note ---
Date of Encounter: 11/06/16 Time of Encounter: 10:26 - Assessment and plan (1) Goals of care, counseling/discussion Current Visit: Yes Status: Acute Assessment and plan: Follow-up discussion with patient's daughter regarding hospice choice. Family contemplating hospice agencies. Discussed discharge process. Will continue to follow. (2) Mental status change Current Visit: Yes Status: Acute Assessment and plan: Goal is comfort care, family contemplating hospice agency of choice Qualifiers: Altered mental status type: unspecified Qualified Code(s): R41.82 - Altered mental status, unspecified (3) Pneumonia Current Visit: Yes Status: Acute Assessment and plan: Continue with ATB treatment per hospitalist. Qualifiers: Pneumonia type: due to unspecified organism Laterality: bilateral Lung location: lower lobe of lung Qualified Code(s): J18.9 - Pneumonia, unspecified organism - Time Spent With Patient Total time spent is greater than 50% in coordination of care (as documented) at patient's floor/unit and/or counseling patient: - Subjective Interval history: Kelsey Calix is lying in bed. She continues to be unresponsive, but winces and withdraws to tactile stimulation of lower extremities, and opens eyes on rare occasion. She opens eyes to ice chip placed on her lips, but rejects the offer. - Constitutional Vitals: Abnormal lab results RBC 3.37 M/mcL (3.82-4.97) L 11/05/16 04:41 Hgb 9.3 g/dL (11.5-15.4) L 11/05/16 04:41 Hct 30.6 % (35.3-44.9) L 11/05/16 04:41 MCH 27.6 pg (28.0-33.3) L 11/05/16 04:41 MCHC 30.4 g/dL (31.6-35.5) L 11/05/16 04:41 RDW 15.9 % (11.5-14.5) H 11/05/16 04:41 Basophilic Stippling 1+ (Not Present) A 11/02/16 13:47 APTT 25.8 Seconds (26.0-36.0) L 11/01/16 19:31 Potassium 3.3 mEq/L (3.5-4.5) L 11/05/16 04:41 Creatinine 1.28 mg/dL (0.57-1.11) H 11/05/16 04:41 Est GFR ( Amer) 48 (> 60) L 11/05/16 04:41 Est GFR (Non-Af Amer) 40 (> 60) L 11/05/16 04:41 Calcium 7.2 mg/dL (8.6-10.8) L 11/05/16 04:41 Alkaline Phosphatase 129 Units/L (38-126) H 11/01/16 19:31 Troponin I 0.05 ng/mL (0-0.03) H* 11/01/16 19:31 B-Natriuretic Peptide 457 pg/mL (0-100) H 11/02/16 21:39 Serum Total Protein 5.1 g/dL (6.0-8.3) L 11/01/16 19:31 Albumin 2.0 g/dL (3.5-5.0) L 11/01/16 19:31 Albumin/Globulin Ratio 0.6 (1.1-2.2) L 11/01/16 19:31 Urine Clarity Cloudy (Clear) A 11/01/16 19:39 Urine Protein 30 mg/dL (Neg-Trace) H 11/01/16 19:39 Urine Glucose (UA) 100 mg/dL (Normal) H 11/01/16 19:39 Ur Leukocyte Esterase Small (Negative) H 11/01/16 19:39 Urine Microscopic WBC 15-30 per hpf (0-3) H 11/01/16 19:39 Ur Squamous Epith Cells Many per lpf (None-Few) H 11/01/16 19:39 Urine Yeast Moderate per hpf (None Seen) H 11/01/16 19:39 Ur Culture Indicated? YES (NO) A 11/01/16 19:39 General appearance: Present: no acute distress. Absent: cooperative Exam: 81 year old female patient, unresponsive, family at bedside. - Eye Additional comments: opes eyes to tactile stimuli - Respiratory Respiratory exam: Present: decreased breath sounds. Absent: accessory muscle use, respiratory distress - Cardiovascular Cardiovascular exam: Present: RRR - GI/Abdominal GI/Abdominal exam: Present: hypoactive bowel sounds, soft. Absent: firm, guarding, rigid, tenderness - Additional comments: waldron catheter in place with sediment - Extremities Exam Extremities exam: Present: pedal edema - Neurological Exam Neurological exam: Absent: alert (does not follow commands) - Psychiatric Psychiatric exam: Absent: agitated, anxious - Skin Skin exam: Present: dry, warm Palliative Quality Palliative Quality: Screen for Code Status: Yes, Screen for Goals of Care: Yes, Screen for Pain: Yes, If Pain Regimen Started, Initiate Bowel Regimen: NA, Screen for Nausea/Vomitting: Yes Code Status: 11/02/16 09:13 Resuscitation Status: Active [RES] Routine Comment: Resuscitation Status: [id number] Resuscitation Status: Active [RES] Routine Comment: Resuscitation Status: DNR-Comfort Care - Labs CBC & Chem 7: 11/05/16 04:41 11/05/16 04:41 Labs: Laboratory Results - last 24 hr 11/05/16 11/05/16 11/05/16 05:56 10:53 20:39 POC Glucose 74 86 80 Random Vancomycin 11/06/16 05:45 POC Glucose Random Vancomycin 18.6 - ABG Interpretation ABG results: PT/INR, D-dimer PT 10.2 Seconds (9.4-12.1) 11/01/16 19:31 Consult Discharge Plan - Plan Referrals: Clay Melendez MD [Primary Care Provider] -
[2016-11-06] MEDS ORDERED: Vancomycin 500 MG in D5% in Water (Mini-Bag+) 100 ML IVPB ONE (10:47)
--- NOTE | 2016-11-06 14:40 | Internal Med Progress Note ---
Date of Encounter: 11/06/16 Time of Encounter: 10:00 - Assessment and plan (1) Pneumonia Current Visit: Yes Status: Acute Assessment and plan: On Zosyn and vancomycin. Cultures have been negative. Will de-escalate antibiotics. Family wants to continue antibiotics for now. Qualifiers: Pneumonia type: due to unspecified organism Laterality: bilateral Lung location: lower lobe of lung Qualified Code(s): J18.9 - Pneumonia, unspecified organism (2) Sepsis Current Visit: Yes Status: Acute Assessment and plan: No organism has been identified. We will de-escalate antibiotics. Qualifiers: Sepsis type: sepsis due to unspecified organism Qualified Code(s): A41.9 - Sepsis, unspecified organism (3) Afib Current Visit: Yes Status: Chronic Assessment and plan: Rate controlled Qualifiers: Atrial fibrillation type: paroxysmal Qualified Code(s): I48.0 - Paroxysmal atrial fibrillation (4) At risk for aspiration Current Visit: Yes Status: Acute Assessment and plan: Patient now on comfort care. Patient's daughter wants to feed the patient. Recommend pureed/nectar thick liquids (5) Decubitus ulcer of right elbow, stage 3 Current Visit: Yes Status: Chronic Assessment and plan: Local wound care. (6) Dementia Current Visit: Yes Status: Chronic Assessment and plan: Poor overall prognosis. Patient being transitioned to hospice. Palliative care following. Qualifiers: Dementia type: unspecified type Dementia behavioral disturbance: with behavioral disturbance Qualified Code(s): F03.91 - Unspecified dementia with behavioral disturbance (7) Diabetes mellitus Current Visit: Yes Status: Chronic Assessment and plan: Blood sugars are well controlled. Qualifiers: Diabetes mellitus type: type 2 Diabetes mellitus complication status: with unspecified complications Diabetes mellitus residential insulin use: with residential use Qualified Code(s): E11.8 - Type 2 diabetes mellitus with unspecified complications; Z79.4 - nursing home (current) use of insulin (8) Essential hypertension Current Visit: Yes Status: Chronic (9) Goals of care, counseling/discussion Current Visit: Yes Status: Acute Assessment and plan: Palliative care following. Continue antibiotics for now. Transition to hospice. Poor prognosis. (10) Hyperlipidemia Current Visit: Yes Status: Chronic Qualifiers: Hyperlipidemia type: unspecified Qualified Code(s): E78.5 - Hyperlipidemia , unspecified (11) Hypokalemia Current Visit: Yes Status: Acute (12) Hypomagnesemia Current Visit: Yes Status: Acute - Subjective Interval history: Patient opening eyes today and responding to some questions from her daughter. No other acute issues overnight. - Constitutional Vitals: Temp Pulse Resp BP Pulse Ox 99.6 F 97 18 131/78 98 11/06/16 07:24 11/06/16 07:24 11/06/16 07:24 11/06/16 07:24 11/06/16 07:24 Exam: Patient opening eyes and answering some questions from her daughter appropriately. Remains disoriented. - Respiratory Respiratory exam: Present: CTAB. Absent: accessory muscle use, rales, rhonchi, wheezes - Cardiovascular Cardiovascular exam: Present: RRR, +S1, +S2. Absent: diastolic murmur, gallop, rubs, systolic murmur - Extremities Exam Extremities exam: Present: warm, radial pulses palpable and symetrical. Absent : calf tenderness, cyanotic, pedal edema Internal Medicine: Result - Labs CBC & Chem 7: 11/05/16 04:41 11/05/16 04:41 - ABG Interpretation ABG results: PT/INR, D-dimer PT 10.2 Seconds (9.4-12.1) 11/01/16 19:31 Consult Discharge Plan - Plan Referrals: Clay Melendez MD [Primary Care Provider] - - Attending Attestation This document has been at least partially created by [employer] recognition technology by Dr. Can. Errors in grammar, wording or other phrases may exist. If errors are found after the documentation is signed, they will be addressed individually in the addendum section of this document when appropriate.
[2016-11-06] MEDS ORDERED: *HR* Morphine 2 MG/ML SYRINGE IVP PRN (15:33)
[2016-11-07] MEDS: Piperacillin/Tazobactam 3.375 GM in D5% in Water (Mini-Bag+) 100 ML IVPB SCH (00:23)
[2016-11-07] MEDS: *HR* Enoxaparin 30 MG/0.3 ML SYRINGE SQ SCH (05:46)
[2016-11-07] MEDS ORDERED: Levofloxacin 750 MG/150 ML 750 MG/150 ML BAG IVPB SCH (08:00)
[2016-11-07] MEDS: Aspirin Enteric Coated 81 MG Tablet PO SCH (08:49)
[2016-11-07] MEDS: predniSONE 10 MG TABLET PO SCH (08:50)
[2016-11-07] MEDS: Metoprolol XL (24 HR) Succ 25 MG TAB.ER.24H PO SCH (08:50)
[2016-11-07] MEDS ORDERED: Levofloxacin 500 MG/100 ML 500 MG/100 ML BAG IVPB SCH (09:00)
[2016-11-07 10:35] VITALS: BP 129/69
--- NOTE | 2016-11-07 10:45 | Palliative Progress Note ---
Date of Encounter: 11/07/16 Time of Encounter: 10:40 - Assessment and plan (1) Goals of care, counseling/discussion Current Visit: Yes Status: Acute Assessment and plan: Further hospice discussions with patient's daughter-Joelle. Family requested [facility] services, referral made per request. Continued discussions regarding prognosis and plan of care. Joelle continues to decline feeding tube or artificial nutrition or hydration. (2) Mental status change Current Visit: Yes Status: Acute Assessment and plan: Goal is comfort care. Qualifiers: Altered mental status type: unspecified Qualified Code(s): R41.82 - Altered mental status, unspecified (3) Pneumonia Current Visit: Yes Status: Acute Assessment and plan: Continue with ATB treatment per hospitalist. Qualifiers: Pneumonia type: due to unspecified organism Laterality: bilateral Lung location: lower lobe of lung Qualified Code(s): J18.9 - Pneumonia, unspecified organism (4) Metabolic encephalopathy Current Visit: Yes Status: Acute Assessment and plan: Patient has been hospitalized for 5 days without change in mental status. Family continues to decline artificial nutrition and hydration. Discussed plan of care and prognoses. Ms. Cole will likely discharge home with hospice services. - Time Spent With Patient Total time spent is greater than 50% in coordination of care (as documented) at patient's floor/unit and/or counseling patient: - Subjective Interval history: Kelsey Calix is lying in bed. She continues to be unresponsive, but winces and withdraws to tactile stimulation of lower extremities, and opens eyes on rare occasion. She opens eyes to ice chip placed on her lips, and takes in 3-4 ice chips. - Constitutional Vitals: Abnormal lab results RBC 3.37 M/mcL (3.82-4.97) L 11/05/16 04:41 Hgb 9.3 g/dL (11.5-15.4) L 11/05/16 04:41 Hct 30.6 % (35.3-44.9) L 11/05/16 04:41 MCH 27.6 pg (28.0-33.3) L 11/05/16 04:41 MCHC 30.4 g/dL (31.6-35.5) L 11/05/16 04:41 RDW 15.9 % (11.5-14.5) H 11/05/16 04:41 Basophilic Stippling 1+ (Not Present) A 11/02/16 13:47 APTT 25.8 Seconds (26.0-36.0) L 11/01/16 19:31 Potassium 3.3 mEq/L (3.5-4.5) L 11/05/16 04:41 Creatinine 1.28 mg/dL (0.57-1.11) H 11/05/16 04:41 Est GFR ( Amer) 48 (> 60) L 11/05/16 04:41 Est GFR (Non-Af Amer) 40 (> 60) L 11/05/16 04:41 POC Glucose 90 (58-89) H 11/06/16 20:32 Calcium 7.2 mg/dL (8.6-10.8) L 11/05/16 04:41 Alkaline Phosphatase 129 Units/L (38-126) H 11/01/16 19:31 Troponin I 0.05 ng/mL (0-0.03) H* 11/01/16 19:31 B-Natriuretic Peptide 457 pg/mL (0-100) H 11/02/16 21:39 Serum Total Protein 5.1 g/dL (6.0-8.3) L 11/01/16 19:31 Albumin 2.0 g/dL (3.5-5.0) L 11/01/16 19:31 Albumin/Globulin Ratio 0.6 (1.1-2.2) L 11/01/16 19:31 Urine Clarity Cloudy (Clear) A 11/01/16 19:39 Urine Protein 30 mg/dL (Neg-Trace) H 11/01/16 19:39 Urine Glucose (UA) 100 mg/dL (Normal) H 11/01/16 19:39 Ur Leukocyte Esterase Small (Negative) H 11/01/16 19:39 Urine Microscopic WBC 15-30 per hpf (0-3) H 11/01/16 19:39 Ur Squamous Epith Cells Many per lpf (None-Few) H 11/01/16 19:39 Urine Yeast Moderate per hpf (None Seen) H 11/01/16 19:39 Ur Culture Indicated? YES (NO) A 11/01/16 19:39 General appearance: Present: no acute distress. Absent: cooperative - Eye Additional comments: opens eyes on occasion, but does not track - ENT ENT exam: Present: mucous membranes dry - Respiratory Respiratory exam: Present: decreased breath sounds (shallow) - Cardiovascular Cardiovascular exam: Present: irregular rhythm (rate 110), tachycardia - GI/Abdominal GI/Abdominal exam: Present: hypoactive bowel sounds, soft. Absent: firm, guarding, tenderness - Additional comments: waldron catheter in place - Extremities Exam Extremities exam: Absent: pedal edema - Neurological Exam Neurological exam: Absent: alert - Psychiatric Psychiatric exam: Absent: agitated, anxious - Skin Skin exam: Present: dry, warm Palliative Quality Palliative Quality: Screen for Code Status: Yes, Screen for Goals of Care: Yes, Screen for Pain: Yes, If Pain Regimen Started, Initiate Bowel Regimen: NA, Screen for Nausea/Vomitting: Yes Code Status: 11/02/16 09:13 Resuscitation Status: Active [RES] Routine Comment: Resuscitation Status: [id number] Resuscitation Status: Active [RES] Routine Comment: Resuscitation Status: DNR-Comfort Care - Labs CBC & Chem 7: 11/05/16 04:41 11/05/16 04:41 Labs: Laboratory Results - last 24 hr 11/06/16 11/07/16 20:32 05:37 POC Glucose 90 H Vancomycin Trough 19.0 - ABG Interpretation ABG results: PT/INR, D-dimer PT 10.2 Seconds (9.4-12.1) 11/01/16 19:31 Consult Discharge Plan - Plan Referrals: Clay Melendez MD [Primary Care Provider] - Prescriptions: Morphine Oral CONC [Roxanol] 5 mg PO Q2H PRN #10 ml PRN Reason: pain or shortness of breath
--- NOTE | 2016-11-07 12:55 | Discharge Summary ---
Date of Encounter: 11/07/16 Time of Encounter: 09:15 - Discharge Diagnosis (1) Pneumonia Priority: Primary Status: Acute Qualifiers: Pneumonia type: due to unspecified organism Laterality: bilateral Lung location: lower lobe of lung Qualified Code(s): J18.9 - Pneumonia, unspecified organism (2) Sepsis Priority: Secondary Status: Acute Qualifiers: Sepsis type: sepsis due to unspecified organism Qualified Code(s): A41.9 - Sepsis, unspecified organism (3) Afib Priority: Secondary Status: Chronic Qualifiers: Atrial fibrillation type: paroxysmal Qualified Code(s): I48.0 - Paroxysmal atrial fibrillation (4) At risk for aspiration Priority: Secondary Status: Acute (5) Decubitus ulcer of right elbow, stage 3 Priority: Secondary Status: Chronic (6) Dementia Priority: Secondary Status: Chronic Qualifiers: Dementia type: unspecified type Dementia behavioral disturbance: with behavioral disturbance Qualified Code(s): F03.91 - Unspecified dementia with behavioral disturbance (7) Diabetes mellitus Priority: Secondary Status: Chronic Qualifiers: Diabetes mellitus type: type 2 Diabetes mellitus complication status: with unspecified complications Diabetes mellitus fdc insulin use: with fdc use Qualified Code(s): E11.8 - Type 2 diabetes mellitus with unspecified complications; Z79.4 - nursing home (current) use of insulin (8) Essential hypertension Priority: Secondary Status: Chronic (9) Goals of care, counseling/discussion Priority: Secondary Status: Acute (10) Hyperlipidemia Priority: Secondary Status: Chronic Qualifiers: Hyperlipidemia type: unspecified Qualified Code(s): E78.5 - Hyperlipidemia , unspecified (11) Hypokalemia Priority: Secondary Status: Acute (12) Hypomagnesemia Priority: Secondary Status: Acute - Discharge Medications Prescriptions: Levofloxacin 750 mg PO Q48H #4 tablet Morphine Oral CONC [Roxanol] 5 mg PO Q2H PRN #10 ml PRN Reason: pain or shortness of breath Home Medications: Aspirin Enteric Coated [Aspirin EC] 81 mg PO DAILY 03/10/16 [History] Atorvastatin [Lipitor] 80 mg PO HS 03/10/16 [History] Clopidogrel [Plavix] 75 mg PO DAILY 03/10/16 [History] Lansoprazole [Prevacid] 30 mg PO QAM 03/10/16 [History] Paroxetine HCl 10 mg PO DAILY 08/15/16 [History] Potassium Chloride [K-Tab ER] 20 meq PO DAILY 03/10/16 [History] PredniSONE 10 mg PO DAILY 03/10/16 [History] Metoprolol XL (24 HR) Succ [Toprol Xl] 25 mg PO DAILY 08/01/16 [History] Ondansetron ODT [Zofran ODT] 4 mg PO Q4H PRN 08/01/16 [History] Docusate [Colace] 100 mg PO BID #30 capsule 08/15/16 [Rx] Glucagon,Human Recombinant [Glucagon Emergency Kit] 1 mg IJ AD PRN 11/03/16 [ History] Levofloxacin 750 mg PO Q48H #4 tablet 11/07/16 [Rx] Morphine Oral CONC [Roxanol] 5 mg PO Q2H PRN #10 ml 11/07/16 [Rx] Allergies/Adverse Reactions: Allergies codeine Allergy (Verified 11/01/16 19:11) See Comments hasn't taken since a child Date of admission: 11/02/16 09:13 Primary care physician: Clay Melendez MD Consults: 11/02/16 09:36 Consult to Palliative Care [CONS] Routine Comment: Consulting Provider: [facility] [place] Discharging clinician: Rhiannon Can Anticipated date of discharge: 11/07/16 - Patient Status Disposition: Hospice - Home Condition: Serious Functional capacity at discharge: bed bound Overall status at discharge: other (Patient on hospice and comfort care) - Discharge Instructions Instructions: Sepsis (DC), Pneumonia (DC) Follow Up With: Clay Melendez MD [Primary Care Provider] - - Diet and Activity Activity: other (Hospice) Diet: other (Pureed diet and nectar thick liquids as tolerated) Hospital course: Ms. Cole is a 81 year old female patient with a history of coronary artery disease, dementia, diabetes, GERD, hypertension and kidney stones was admitted here initially with decreased responsiveness and altered mental status. [facility] for healthcare associated pneumonia. She had been recommended hospice at that time but had been discharged home per family wishes. She did not improve much since discharge and so she was brought in to our ER. She was started on broad-spectrum antibiotics for healthcare associated pneumonia and UTI. She remained unresponsive since then and only occasionally waking up with some muted responses. She has not been eating much and family did not wish for any feeding tube or aggressive intervention. Patient has now been made DNR comfort care and is being transitioned to hospice. Palliative care has been involved in her care. Her blood cultures have been negative. Family wishes to continue her antibiotics for now. She will be discharged today home with hospice and hospice will follow her once she gets home. - Time Spent with Patient Total time spent providing and/or coordinating discharge services: Greater than 30 minutes (40 min) - Constitutional Vitals: Temp Pulse Resp BP Pulse Ox 99.8 F H 107 18 129/69 100 11/07/16 10:29 11/07/16 10:29 11/07/16 10:29 11/07/16 10:29 11/07/16 10:29 General appearance: Absent: answers questions appropriately Exam: Sleeping. Nonresponsive - Respiratory Respiratory exam: Present: CTAB. Absent: accessory muscle use, rales, rhonchi, wheezes - Cardiovascular Cardiovascular exam: Present: RRR, +S1, +S2. Absent: diastolic murmur, gallop, rubs, systolic murmur - GI/Abdominal GI/Abdominal exam: Present: normal bowel sounds, soft, no peritoneal signs. Absent: distended, tenderness - Attending Attestation This document has been at least partially created by [employer] voice recognition technology by Dr. Can. Errors in grammar, wording or other phrases may exist. If errors are found after the documentation is signed, they will be addressed individually in the addendum section of this document when appropriate.
--- NOTE | 2016-11-07 13:13 | Physician Discharge Referral ---
Home Health/Hosp Referral Info Transfer to: Hospice Provider in Charge Post Discharge: PCP - Diagnosis (1) Pneumonia Priority: Primary Status: Acute (2) Sepsis Priority: Secondary Status: Acute (3) Afib Priority: Secondary Status: Chronic (4) At risk for aspiration Priority: Secondary Status: Acute (5) Decubitus ulcer of right elbow, stage 3 Priority: Secondary Status: Chronic (6) Dementia Priority: Secondary Status: Chronic (7) Diabetes mellitus Priority: Secondary Status: Chronic (8) Essential hypertension Priority: Secondary Status: Chronic (9) Goals of care, counseling/discussion Priority: Secondary Status: Acute (10) Hyperlipidemia Priority: Secondary Status: Chronic (11) Hypokalemia Priority: Secondary Status: Acute (12) Hypomagnesemia Priority: Secondary Status: Acute - Respiratory Orders Smoking Cessation: Smoking cessation has been advised. For more information, call the [place] Tobacco Quit Line at 9-841-GCVN-NOW. - Diet/Nutrition Diet/Nutrition Orders: Pureed - Activity Activity Orders: Bedrest - Services Needed Following services are medically necessary services: Nursing - Transfer Medications Prescriptions: Levofloxacin 750 mg PO Q48H #4 tablet Morphine Oral CONC [Roxanol] 5 mg PO Q2H PRN #10 ml PRN Reason: pain or shortness of breath Home Medications: Aspirin Enteric Coated [Aspirin EC] 81 mg PO DAILY 03/10/16 [History] Atorvastatin [Lipitor] 80 mg PO HS 03/10/16 [History] Clopidogrel [Plavix] 75 mg PO DAILY 03/10/16 [History] Lansoprazole [Prevacid] 30 mg PO QAM 03/10/16 [History] Paroxetine HCl 10 mg PO DAILY 03/10/16 [History] Potassium Chloride [K-Tab ER] 20 meq PO DAILY 03/10/16 [History] PredniSONE 10 mg PO DAILY 03/10/16 [History] Metoprolol XL (24 HR) Succ [Toprol Xl] 25 mg PO DAILY 08/01/16 [History] Ondansetron ODT [Zofran ODT] 4 mg PO Q4H PRN 08/01/16 [History] Docusate [Colace] 100 mg PO BID #30 capsule 08/15/16 [Rx] Glucagon,Human Recombinant [Glucagon Emergency Kit] 1 mg IJ AD PRN 11/03/16 [ History] Levofloxacin 750 mg PO Q48H #4 tablet 11/07/16 [Rx] Morphine Oral CONC [Roxanol] 5 mg PO Q2H PRN #10 ml 11/07/16 [Rx] Allergies/Adverse Reactions: Allergies codeine Allergy (Verified 11/01/16 19:11) See Comments hasn't taken since a child Certification: Further, I certify that my clinical findings support that this patient is homebound (i.e. absences from home require considerable and taxing effort and are for medical reasons or baptism services or infrequently or short duration when for other reasons) because: Homebound Reason: Patient requires assistance of a person or device to safely leave home, Altered mental status requiring supervision when leaving home Attestation: My signature below is to certify that this patient is under my care and that I, or nurse practitioner, or a physician's business assistant working with me, has a face-to -face encounter with this patient.
[2016-11-07] MEDS ORDERED: Aminoglycoside Consult 1 EACH MC ONE (14:09)
== END 2016-11-07 18:00 | disposition hospice, home (50) | DRG 871 ==
LOC: EMEROO 19:08 → 2ANU 19:08 → SUATTDRO 11-02 09:13
PROVIDERS: ADMIT Internal Medicine; ATTEND Internal Medicine